=== PATIENT | male | born 1985 | race Caucasian/White ===

== ENCOUNTER 2023-07-03 02:08 | Emergency (ER) | payer OTHER, SELFPAY ==
[2023-07-03 02:16] VITALS: BP 130/70; PULSE 92; RESP 20; TEMP 36.7; O2SAT 97; BMI 27.5
--- NOTE | 2023-07-03 02:46 | PC.NURSE ---
this RN attempted to draw patient with no success. Pt reports he most frequently needs an ultrasound guided IV d/t previous drug use
--- NOTE | 2023-07-03 02:53 | MHC.EDTECH ---
Addendum entered by Darian Lakhani 07/03/23 03:09: JOSEY MIKE ATTEMPT TO DRAW PATIENT LABS ,BUT WAS UNABLE ,THIS PCT OFFER PT TO DO A FINGER STICK AND PT REFUSED ,PCT ALIYAH ATTEMPT TO DRAW PT LABS AND PT REFUSED ,MATTRESS FILLING MACHINE TENDER MARCELINO TRIED TO EDUCATE PT ABOUT THE IMPORTANCE OF THE LABS ,PT BECAME VERY RUDE TOWARD JOSEY BENSON ,PT ALSO REFUSED TO GIVE URINE SAMPLE ,PT SAID ALL HE CAME HERE FOR IS FOR A PRESCRIPTION FOR CONSTIPATION . Original Note: PT REFUSED BLOOD DRAW,HORTICULTURAL NURSERY ASSISTANT AWARE ,PT WAS VERY RUDE TO TRIAGE NURSE ,ALSO PT REFUSED URINE SAMPLE SAID HE CANT URINATE ,STATED HE WILL LEAVE .
--- NOTE | 2023-07-03 02:56 | PC.NURSE ---
pt being rude and disrespectful to staff, labs placed by this rn, pt refusing blood drawn and urine, this Rn attempted to educated pt of the importance of drawing labs. pt refused and continue to speak in loud aggressive tone. Sil and Gautam Pct present during conversation. pt refused treatment.
--- NOTE | 2023-07-03 03:02 | PC.NURSE ---
Notified Charge nurse daron Crenshaw of pt behavior.
--- NOTE | 2023-07-03 03:05 | MHC.EDTECH ---
This tech was asked to draw patient's labs due to patient being a difficult stick. Patient was agitated when this tech attempted to draw labs and stated I am constipated why do I need labs I started methadone and that what It does if i came here for head pain would I get a foot massage. This tech asked mud boss to come and speak to patient, pin drafting machine tender attempted to educate patient of the importance of having labs drawn patient continued to interrupt triage nurse and would not allow her to explain why labs were ordered and became very argumentive.Patient increased tone of voice and refused labs, staff attempted to have him stay to have workup done patient refused to stay.
--- OUTSIDE RECORDS SUMMARY | 2023-07-03 03:25 | XMS_ITS | Continuity of Care Document ---
Author Name Unknown Organization [facility] Address [address] [place] [address]- Care Team Providers Care Degree Clerk Name Role Phone Rajesh LOPEZ, Aye Primary Care Physician [phone] Encounter [facility] Date(s): 12/07/20 - 12/07/[address] [address]- Discharge Disposition: A-D/C Home Attending Physician: Pawan Torres MD Admitting Physician: Pawan Torres MD Referring Physician: Not on Staff, Referring MD Allergies, Adverse Reactions, Alerts Substance Reaction Severity Status vancomycin Active Immunizations Given and Recorded Vaccine Date Status Refusal Reason pneumococcal 23-valent vaccine 10/26/16 Given Medications Bactrim DS 800 mg-160 mg oral tablet 1 tablet, By Mouth, 2 times a day, for 10 days, # 20 tablet, 0 Refills, Acute 12/17/20 20:09:00 EDT, 12/07/20 20:09:00 EST, Tablet, [id number], Partial fill upon patient request if the prescription is for a schedule II opioid drug., 1 tablet B... Start Date: 12/07/20 Stop Date: 12/17/20 Status: Ordered buprenorphine 8 mg sublingual tablet, disintegrating 2 tablet = 16 mg, Sublingual, Daily, 0 Refills, Maintenance, 04/30/20 8:01:00 EDT, Tablet Start Date: 04/30/20 Status: Ordered cephalexin monohydrate 500 mg oral tablet 1 tablet = 500 mg, By Mouth, 3 times a day, for 10 days, # 30 tablet, 0 Refills, Acute 12/17/20 20:09:00 EDT, 12/07/20 20:09:00 EST, Tablet, [id number], Partial fill upon patient request if the prescription is for a schedule II opioid drug., 1... Start Date: 12/07/20 Stop Date: 12/17/20 Status: Ordered ondansetron 4 mg oral tablet, disintegrating 1 tablet = 4 mg, By Mouth, Every 8 hours, PRN Nausea & Vomiting, # 10 tablet, 0 Refills, Maintenance, 12/07/20 20:09:00 EST, Tablet, [id number], Partial fill upon patient request if the prescription is for a schedule II opioid drug., 191, cm,... Start Date: 12/07/20 Status: Ordered Vital Signs Most recent to oldest [Reference Range]: 1 2 3 Height 191 cm (12/07/20 8:22 PM) 191 cm (12/07/20 6:32 PM) 191 cm (12/07/20 4:08 PM) Weight 98.2 kg (12/07/20 8:22 PM) 98.2 kg (12/07/20 4:08 PM) Oxygen Saturation [94-100 %] 98 % (12/07/20 8:22 PM) 97 % (12/07/20 6:32 PM) 98 % (12/07/20 4:08 PM) Pulse Rate [55-90 bpm] 88 bpm (12/07/20 8:22 PM) 74 bpm (12/07/20 6:32 PM) 88 bpm (12/07/20 4:08 PM) Body Mass Index [18.5-24.99] 26.92 *H* (12/07/20 8:22 PM) Blood Pressure [90-138/55-84 mm Hg] 119/67mm Hg (12/07/20 8:22 PM) 116/55mm Hg (12/07/20 6:32 PM) 110/54mm Hg (12/07/20 4:08 PM) Respiratory Rate [16-30 br/min] 18 br/min (12/07/20 8:22 PM) 16 br/min (12/07/20 6:32 PM) 18 br/min (12/07/20 4:08 PM) Temperature [96.8-100.4 DegF] 99.2 DegF (12/07/20 4:08 PM) Mode of Delivery (Oxygen) Room air (12/07/20 8:22 PM) Room air (12/07/20 6:32 PM) Room air (12/07/20 4:08 PM) Blood pressure sites Arm, left (12/07/20 8:22 PM) Arm, left (12/07/20 6:32 PM) Arm, left (12/07/20 4:08 PM) Temperature Route Oral (12/07/20 4:08 PM) Dry Weight 98.2 kg (12/07/20 8:22 PM) 98.2 kg (12/07/20 4:08 PM) Social History Social History Type Response Smoking Status Never smoker entered on: 11/09/16 Sex
--- OUTSIDE RECORDS SUMMARY | 2023-07-03 03:25 | XMS_ITS | Continuity of Care Document ---
Author Name Unknown Organization [facility] ter Address [address] [place] [address]- Care Team Providers Care Spiral Weaver Name Role Phone Rajesh LOPEZ, Aye Primary Care Physician Encounter [facility] Date(s): 04/29/20 - 05/01/[address] [address] Encounter Diagnosis Hypercalcemia(Final) - 04/29/20 Hypermagnesuria(Final) - 04/29/20 Discharge Disposition: A-D/C Home Attending Physician: Chad Bolton MD Admitting Physician: Mahad Herrera DO Referring Physician: Not on Staff, Referring MD Allergies, Adverse Reactions, Alerts Substance Reaction Severity Status vancomycin Active Immunizations Given and Recorded Vaccine Date Status Refusal Reason pneumococcal 23-valent vaccine 10/26/16 Given Medications buprenorphine 8 mg sublingual tablet, disintegrating 2 tablet = 16 mg, Sublingual, Daily, 0 Refills, Maintenance, 04/30/20 8:01:00 EDT, Tablet Start Date: 04/30/20 Status: Ordered Results Orders for Microbiology Reports Name Date Blood Culture #2 (BLOOD CULTURE 2) Blood Culture 04/29/20 Microbiology Reports TEST:Blood Culture, Second Order STATUS:Unauthenticated BODY SITE: SOURCE:Blood COLLECTED DATE/TIME:04/30/20 12:29 AM Blood Culture, Second Order SPECIMEN DESCRIPTION : BLOOD L HAND SPECIAL REQUESTS : NONE CULTURE : NO GROWTH AFTER 24 HOURS REPORT STATUS : PRELIMINARY REPORT TEST:Blood Culture STATUS:Unauthenticated BODY SITE: SOURCE:Blood COLLECTED DATE/TIME:04/29/20 6:48 PM Blood Culture SPECIMEN DESCRIPTION : BLOOD R HAND SPECIAL REQUESTS : NONE CULTURE : NO GROWTH AFTER 48 HOURS REPORT STATUS : PRELIMINARY REPORT Radiology Reports * Exam Date Time Procedure Performing Provider Status 7/31/20 11:10 AM Thoracic Spine 3 Views Vandana Navas; Auth (Verified) Notes: (Thoracic Spine 3 Views) Reason For Exam: Pain RESULT: Thoracic Spine 3 Views Thoracic Spine 3 Views INDICATION: Pain; Hx of Present Illness: seizure at care home lasting 2 mins with vomiting. Pt states hefell from standing position, falling backwards into chair. Given ativan by staff. Heavy daily etoh use per facility, last drink 3 days ago; Other Objective Findings: pt is awake and alert, calm. Reports headache, denies lightheadedness dizziness. +perrla, pupil COMPARISON: None. FINDINGS: Normal alignment and well preserved disc and vertebral body morphology. No bone lesions or fractures. Normal soft tissues. IMPRESSION: No evidence of acute osseous abnormality. WSN: [id number] Ordering Physician: Colin Deluca Dictated By: Hill Boyle MD Dictated Date/Time: 04/30/20 1:06 pm Reviewed By: Hill Boyle MD Signed By: Hill Boyle MD Signed Date/Time: 04/30/20 1:06 pm Transcribed By: JERRY Transcribed Date/Time: 04/30/20 1:05 pm * Exam Date Time Procedure Performing Provider Status 04/30/20 11:10 AM Cervical Spine 3 Views or Less Norma Lei i; Auth (Verified) Notes: (Cervical Spine 3 Views or Less) Reason For Exam: Pain RESULT: Cervical Spine 3 Views or Less Cervical Spine 3 Views or Less INDICATION: Pain; Clinical Question(s): Position Fixation; Hx of Present Illness: seizure at care home lasting 2 mins with vomiting. Pt states he fell from standing position, falling backwards into chair.Given ativan by staff. Heavy daily etoh use per facility, last drink 3 days ago; COMPARISON: None. FINDINGS: Cervicothoracic junction obscured by the patient's shoulders. Normal alignment and well preserved disc and vertebral body morphology. No bone lesions or fractures. Normal C1/2 relationship. Normal prevertebral soft tissues and clear lung apices. IMPRESSION: No evidence of acute osseous abnormality. WSN: [id number] Ordering Physician: Colin Deluca Dictated By: Hill Boyle MD Dictated Date/Time: 04/30/20 1:05 pm Reviewed By: Hill Boyle MD Signed By: Hill Boyle MD Signed Date/Time: 04/30/20 1:05 pm Transcribed By: JERRY Transcribed Date/Time: 04/30/20 1:04 pm Vital Signs Most recent to oldest [Reference Range]: 1 2 3 Height 185 cm (05/01/20 12:27 PM) 185 cm (05/01/20 9:01 AM) 185 cm (05/01/20 3:46 AM) Weight 96.8 kg (04/30/20 4:10 PM) Oxygen Saturation [94-100 %] 98 % (05/01/20 12:27 PM) 99 % (05/01/20 9:01 AM) 98 % (05/01/20 3:46 AM) Pulse Rate [55-90 bpm] 81 bpm (05/01/20 12:27 PM) 63 bpm (05/01/20 9:01 AM) 98 bpm *H* (05/01/20 3:46 AM) Body Mass Index [18.5-24.99] 28.28 *H* (04/30/20 4:10 PM) Blood Pressure [90-138/55-84 mm Hg] 117/56mm Hg (05/01/20 12:27 PM) 108/57mm Hg (05/01/20 9:01 AM) 114/59mm Hg (05/01/20 3:46 AM) Respiratory Rate [16-30 br/min] 18 br/min (05/01/20 1:48 PM) 18 br/min (05/01/20 12:27 PM) 18 br/min (05/01/20 9:01 AM) Temperature [96.8-100.4 DegF] 98.6 DegF (05/01/20 12:27 PM) 98.6 DegF (05/01/20 9:01 AM) 98.4 DegF (05/01/20 3:46 AM) Mode of Delivery (Oxygen) Room air (05/01/20 12:27 PM) Room air (05/01/20 9:01 AM) Room air (05/01/20 3:46 AM) Blood pressure sites Arm, left (05/01/20 12:27 PM) Arm, left (05/01/20 9:01 AM) Arm, right (05/01/20 3:46 AM) Temperature Route Oral (05/01/20 12:27 PM) Oral (05/01/20 9:01 AM) Oral (05/01/20 3:46 AM) Dry Weight 96.8 kg (04/30/20 4:10 PM) Social History Social History Type Response Smoking Status Never smoker entered on: 11/09/16 Sex
--- OUTSIDE RECORDS SUMMARY | 2023-07-03 03:25 | XMS_ITS | Continuity of Care Document ---
Author Name [facility] Address [address] [place] [id number] Organization [facility] Address [address] [place] [address] Support Name Relationship Address Phone No Primary Care, Physician Primary Care Provider Unknown Unavailable Katrina Tian Emergency Provider [facility] Emergency Dept. [address] [place] [address] Allergies, Adverse Reactions, Alerts Allergen Type Severity Reaction Last Updated Verified Status erythromycin base Allergy Unknown February 05, 2021 Y Ac tive Medications No known medications. Problem List Active Problems Medical Problem Onset Date Status Generalized seizure Active Procedures Procedure Date Status CT head/brain wo con February 05, 2021 completed Relevant Diagnostic Tests and/or Laboratory Data Laboratory Results Test Date/Time Result Interp. Ref. Range Result Co mment White Blood Count February 05, 2021 4:15pm 8.8 10^3/uL 3.9-10.8 Red Blood Count February 05, 2021 4:15pm 5.47 10^6/uL 4.42-5.73 Hemoglobin February 05, 2021 4:15pm 14.5 g/dL 14.0-17.3 Hematocrit February 05, 2021 4:15pm 43.6 % 40.1-51.0 Mean Corpuscular Volume February 05, 2021 4:15pm 79.7 fL Low 83.0-96.0 Mean Corpuscular Hemoglobin February 05, 2021 4:15pm 26.5 pg 25.7-32.2 Mean Corpuscular Hemoglobin Concent February 05, 2021 4:15pm 33.3 % 32.3-36.5 Platelet Count February 05, 2021 4:15pm 310 10^3/uL 154-369 RDW Coefficient of Variation February 05, 2021 4:15pm 15.9 % High 11.5-14.0 Neutrophils (%) (Auto) February 05, 2021 4:15pm 88.0 % High 43.0-74.0 Lymphocytes (%) (Auto) February 05, 2021 4:15pm 9.5 % Low 17.0-44.0 Monocytes (%) (Auto) February 05, 2021 4:15pm 2.0 % Low 4.0-13.0 Eosinophils (%) (Auto) February 05, 2021 4:15pm 0 % Low 1-10 Basophils (%) (Auto) February 05, 2021 4:15pm 0.2 % 0-3.0 Immature/Total Granulocytes (auto) February 05, 2021 4:15pm 0.3 0.001-4.0 Nucleated Red Blood Cells % (auto) February 05, 2021 4:15pm 0 % Absolute Neutrophils (auto) February 05, 2021 4:15pm 7.73 10^3/UL 1.68-7.99 Absolute Lymphocytes (auto) February 05, 2021 4:15pm 0.84 10^3/UL 0.66-4.75 Absolute Monocytes (auto) February 05, 2021 4:15pm 0.18 10^3/UL 0.16-1.40 Absolute Eosinophils (auto) February 05, 2021 4:15pm 0 10^3/UL 0.0-0.6 Absolute Basophils (auto) February 05, 2021 4:15pm 0.02 10^3/UL 0.00-0.32 Nucleated RBC Absolute Count (auto) February 05, 2021 4:15pm 0 K/uL Sodium Level February 05, 2021 4:15pm 134 mmol/L Low 136-144 Potassium Level February 05, 2021 4:15pm 3.5 mmol/L 3.4-5.1 Chloride Level February 05, 2021 4:15pm 102 mmol/L 101-111 Carbon Dioxide Level February 05, 2021 4:15pm 21 mmol/L Low 22-32 Anion Gap February 05, 2021 4:15pm 11 mmol/L 5.0-15.0 Blood Urea Nitrogen February 05, 2021 4:15pm 13 mg/dL 8-20 Creatinine February 05, 2021 4:15pm 0.96 mg/dL 0.64-1.27 Glomerular Filtration Rate Calc February 05, 2021 4:15pm > 60.0 60.0- Please note that the Pharmacy may use a different equation when calculating drug dosing schedules (such as the Cockcroft - Gault Equation). Multiply x 1.212 if patient is of descent. Units are mL/min/1.73 m sq. Calculated using the IDMS-traceable MDRD study equation. Glucose Level February 05, 2021 4:15pm 117 mg/dL 75-140 Calcium Level February 05, 2021 4:15pm 9.2 mg/dL 8.6-10.5 Phosphorus Level February 05, 2021 4:15pm 1.3 mg/dL Low 2.4-4.7 Total Bilirubin February 05, 2021 4:15pm 0.61 mg/dL 0.3-1.2 Aspartate Amino Transf (AST/SGOT) February 05, 2021 4:15pm 21 U/L 15-41 Alanine Aminotransferase (ALT/SGPT) February 05, 2021 4:15pm 26 U/L 17-63 Alkaline Phosphatase February 05, 2021 4:15pm 59 U/L 38-126 Total Protein February 05, 2021 4:15pm 7.7 g/dL 6.1-7.9 Albumin February 05, 2021 4:15pm 3.7 g/dL 3.5-4.8 Magnesium Level February 05, 2021 4:15pm 1.8 mg/dL 1.8-2.5 Salicylates Level February 05, 2021 4:15pm < 4.0 mg/dL Low 4.0-20 Toxic Range: Greater than 30 mg/dl Patients treated with Sulfasalazine may generate a FALSE HIGH result for Salicylate. Patients treated with Sulfapyridine may generate a FALSE LOW result for Salicylate Acetaminophen Level February 05, 2021 4:15pm 21.6 ug/mL 10-30 Acetaminophen toxic range: Greater than 150 ug/mL at 4 hours after ingestion. Greater than 75 ug/mL at 8 hours after ingestion. Greater than 40 ug/mL at 12 hours after ingestion. Ethyl Alcohol Level February 05, 2021 4:15pm 5 mg/dL The Laboratory will now report Ethanol units in mg/dL. To convert results to %, please divide the result by 1000. This is to better comply with the laboratory regulatory agencies. Advance Directives Advance Directive Response Recorded Date/ Time Date Patient Queried 02/05/21 February 05, 2021 2:30pm Does pt. have a legal guardian? No February 05, 2021 2:30pm Does the patient have a Healthcare Proxy? No February 05, 2021 2:30pm Healthcare Proxy Status Not Interested February 05 2:30pm Chief Complaint and Reason for Visit Encounter Admit Date Chief Complaint Reason for V isit Departed Emergency February 05, 2021 2:17pm seizure Hospital Discharge Instructions Additional Discharge Instructions You ar e seen in the emergency room after having a seizure at [place]. Your work-up included blood work and a CT scan. This was just noted for a low phosphorus level for which we gave you medication. Initially did not want to go back to [place] but then later were agreeable. It would not be recommended that you check out from [place] as you need to be in a monitored situation while detoxing. Read the paperwork for more information reasons to return to the emergency room Instruction/Education Provided Alcohol W ithdrawal (ED) Polysubstance Abuse (ED) Encounters Encounter Facility Location Admit/Visit Date Discharge/Departure Date Attending Provider Departed Emergency [facility] ED Observation February 05, 2021 2:17pm February 06, 2021 10:49am Functional Status Query Response Date Recorded Comment Patient Orientation Oriented x3 February 05, 2021 2:39pm Immunizations No known immunizations. Plan of Care Instructions Alcohol Withdrawal (ED) Polysubstance Abuse (ED) Social History Query Response Date Recorded Comment Does the patient use drugs? Yes February 05, 2021 2 :26pm Is pt a current\former smoke r or user of tobacco products? Yes, current February 06, 2021 8:47am Query Response Start Date Stop Date Is pt a current\former smoke r or user of tobacco products? Yes, current Vital Signs Vital Reading Result Reference Range Collection Date/Time Weight n/a Temperature 98.5 F 97.5 F-99.3 F February 05, 2021 2: 38pm Pulse 64 BPM 60-90 February 06, 2021 9:3 1am Respiration 18 RPM 12-20 February 06, 2021 9:3 1am Pulse Oximetry 98 % 95-100 February 06, 2021 9 :31am Blood Pressure Systolic 114 100-160 February 06, 2021 9:31am Blood Pressure Diastolic 74 60-90 February 06, 2021 9:31am
== END 2023-07-03 03:49 | disposition left against medical advice (07) ==
PROVIDERS: Emergency Provider Emergency Medicine
DX: K59.00 Constipation, unspecified (principal); F11.20 Opioid dependence, uncomplicated
CPT/HCPCS: 99281

== ENCOUNTER 2024-02-22 06:30 | Emergency (ER) | payer OTHER, SELFPAY ==
[2024-02-22 06:36] VITALS: BP 146/92; PULSE 85; PULSE 87; RESP 19; TEMP 36.8; O2SAT 100; O2SAT 96; BMI 26.1
--- OUTSIDE RECORDS SUMMARY | 2024-02-22 07:17 | XMS_ITS | Continuity of Care Document ---
Author Organization [facility] Address [address] [place] [address]- Care Team Providers Care Business Strategist Name Role Phone Aye Mena MD Primary Care Physician [phone] Encounter [facility] Date(s): 09/21/23 - 10/27/23 Wound Care [address] [place] [id number] Attending Physician: Javier Sandhu MD Admitting Physician: Javier Sandhu MD Allergies, Adverse Reactions, Alerts Substance Reaction Severity Status vancomycin Active Immunizations Given and Recorded Vaccine Date Status Refusal Reason pneumococcal 23-valent vaccine 10/26/16 Given Medications buprenorphine 8 mg sublingual tablet, disintegrating 2 tablet = 16 mg, Sublingual, Daily, 0 Refills, Maintenance, 04/30/20 8:01:00 EDT, Tablet Start Date: 04/30/20 Status: Ordered ondansetron 4 mg oral tablet, disintegrating 1 tablet = 4 mg, By Mouth, Every 8 hours, PRN Nausea & Vomiting, # 10 tablet, 0 Refills, Maintenance, 12/07/20 20:09:00 EST, Tablet, [id number], Partial fill upon patient request if the prescription is for a schedule II opioid drug., 191, cm,... Start Date: 12/07/20 Status: Ordered Social History Social History Type Response Smoking Status Never smoker entered on: 11/09/16 Sex Patient Care team information Care Team Personnel Name: Linda Lima Position: [facility] Outreach Member Role: Lifetime Consulting Physician Name: Digna Jay RN Position: [facility] SN RN Member Role: Primary Care Nurse Name: Ricky Hall RN Position: [facility] RN Member Role: Primary Care Nurse Name: Sarita Ayala RN Position: [facility] Onco RN Member Role: Primary Care Nurse Name: Aye Mena MD Position: [facility] Outreach Member Role: PCP Address: Address: [address] [place] [address]- Name: Tara Arriaza RN Position: [facility] RN Member Role: Primary Care Nurse Name: Lillian Emery RN Position: [facility] Prudencio RN Member Role: Primary Care Nurse Name: German Madrigal MD Position: [facility] Renal MD Member Role: Lifetime Consulting Physician Address: Address: [address] [place] [address] [facility] [place] [address]- Care Team Related Persons Name: KJ DEL RIO Address: home [address] [place] [address] Name: SHOAIB DEL RIO Address: [address] [place] [address]
--- OUTSIDE RECORDS SUMMARY | 2024-02-22 07:17 | XMS_ITS | Continuity of Care Document ---
Author Organization [facility] Address [address] [place] [address]- Care Team Providers Care Take Off Man Name Role Phone Rajesh LOPEZ, Aye Primary Care Physician [place] [facility] [place]23 - 11/03/23 W[facility] Care [address] [place] [address] Attending Physician: Javier Sandhu MD Admitting Physician: [...] Refills, Maintenance, 12/07/20 20:09:00 EST, Tablet, [id number], Partial fill upon patient request if the prescription is for a schedule II opioid drug., 191, cm,... Start Date: 12/07/20 Status: Ordered Social History Social History Type Response Smoking Status Never smoker entered on: 11/09/16 Sex Patient Care team information Care Team Personnel Name: Linda Lima Position: [facility] Outreach Member Role: Lifetime Consulting Physician Name: Digna Jay RN Position: [facility] SN RN Member Role: Primary Care Nurse Name: Ricky Hall RN Position: S RN Member Role: Primary Care Nurse Name: Sarita Ayala RN Position: [facility] Onco RN Member Role: Primary Care Nurse Name: Aye Mena MD Position: [facility] Outreach Member Role: PCP Address: Address: [address] [place] [address]- Name: Tara Arriaza RN Position: [facility] RN Member Role: Primary Care Nurse Name: Lillian Emery RN Position: [facility] Rad RN Member Role: Primary Care Nurse Name: German Madrigal MD Position: [facility] Renal MD Member Role: Lifetime Consulting Physician Address: Address: [address] [place] [address] [facility] [place] [address]- Care Team Related Persons Name: KJ DEL RIO Address: [address] [place] [address] Name: SHOAIB DEL RIO Address: [address] [place] [address]
--- OUTSIDE RECORDS SUMMARY | 2024-02-22 07:17 | XMS_ITS | Continuity of Care Document ---
Author Organization [facility] Address [address] [place] [address]- Care Team Providers Care Bookkeepers Supervisor Name Role Phone Not on Staff, PCP Primary Care Physician Unavail able [place] [facility] [place] Date(s): 12/12/23 - 01/16/24 Wound Care [address] [place] [id number] Attending Physician: Javier Sandhu MD Admitting Physician: [...] Care team information Care Team Personnel Name: Lidna Lima Position: [facility] Outreach Member Role: Lifetime Consulting Physician Name: Digna Jay RN Position: [facility] ANDREW Office Staff Member Role: Primary Care Nurse Name: Ricky Hall RN Position: [facility] RN Member Role: Primary Care Nurse Name: Sarita Ayala RN Position: [facility] Onco RN Member Role: Primary Care Nurse Name: Tara Arriaza RN Position: [facility] RN Member Role: Primary Care Nurse Name: Lillian Emery RN Position: [facility] Rad RN Member Role: Primary Care Nurse Name: Not on Staff, PCP Position: [facility] Physician (General Medicine) Member Role: PCP Name: German Madrigal MD Position: [facility] Renal MD Member Role: Lifetime Consulting Physician Address: Address: [address] [place] [address] [facility] [place] [place] [address]- Care Team Related Persons Name: KJ DEL RIO Address: [address] [place] [address] Name: SHOAIB DEL RIO Address: [address] [place] [address]
--- OUTSIDE RECORDS SUMMARY | 2024-02-22 07:17 | XMS_ITS | Continuity of Care Document ---
Author Organization [facility] ter Address [address] [place] [address]- Care Team Providers Care Knife Setter Assembler Name Role Phone Rajesh LOPEZ, Aye Primary Care Physician Encounter [facility] Date(s): 06/21/23 - 07/25/[address] [id number] Attending Physician: Eze Gould MD Admitting Physician: Eze Gould MD Referring Physician: Eze Gould MD Allergies, Adverse Reactions, Alerts Substance Reaction [...] Refills, Maintenance, 12/07/20 20:09:00 EST, Tablet, [id number], Partial fill upon patient request if the prescription is for a schedule II opioid drug., 191, cm,... Start Date: 12/07/20 Status: Ordered Social History Social History Type Response Smoking Status Never smoker entered on: 11/09/16 Sex Patient Care team information Care Team Personnel Name: Linda Lima Position: [facility] Outreach Member Role: Lifetime Consulting Physician Name: Digna Jay RN Position: [facility] SN RN Member Role: Primary Care Nurse Name: Ricky Hall RN Position: [facility] RN Member Role: Primary Care Nurse Name: Ken DOWLING, Sarita Atwood Position: [facility] Onco RN Member Role: Primary Care Nurse Name: Aye Mena MD Position: [facility] Outreach Member Role: PCP Address: Address: [address] [place] [address]- Name: Tara Arriaza RN Position: [facility] ED RN W/OE and Tasks Member Role: Primary Care Nurse Name: Lillian Emery RN Position: [facility] Rad RN Member Role: Primary Care Nurse Name: German Madrigal MD Position: [facility] Renal MD Member Role: Lifetime Consulting Physician Address: Address: [address] [place] [address] [facility] [place] [address]- Care Team Related Persons Name: KJ DEL RIO Address: home [address] [place] [address] Name: SHOAIB DEL RIO Address: [address] [place] [address]
--- OUTSIDE RECORDS SUMMARY | 2024-02-22 07:17 | XMS_ITS | Continuity of Care Document ---
Author Organization [facility] Address [address] [place] [address]- Care Team Providers Care Parking Garage Manager Name Role Phone Rajesh LOPEZ, Aye Primary Care Physician [place] [facility] [place]08[place]24 - 02/07/24 [facility] [address] [place] [address]- Allergies, Adverse Reactions, Alerts Substance Reaction Severity [...] Care Team Personnel Name: Linda Lima Position: [facility] Outreach Member Role: Lifetime Consulting Physician Name: Digna Jay RN Position: [facility] Office Staff Member Role: Primary Care Nurse Name: Ricky Hall RN Position: [facility] RN Member Role: Primary Care Nurse Name: Sarita Ayala RN Position: [facility] Onco RN Member Role: Primary Care Nurse Name: Aye Mena MD Position: S Outreach Member Role: PCP Address: Address: [address] [place] [address]- Name: Tara Arriaza RN Position: [facility] RN Member Role: Primary Care Nurse Name: Lillian Emery RN Position: [facility] Rad RN Member Role: Primary Care Nurse Name: German Madrigal MD Position: [facility] Renal MD Member Role: Lifetime Consulting Physician Address: Address: [address] [place] [address] [facility] [place] [address]- [place] Care Team Related Persons Name: QUANGKJ Address: home [address] [place] [address] Name: SHOAIB DEL RIO Address: [address] [place] [address]
--- OUTSIDE RECORDS SUMMARY | 2024-02-22 07:17 | XMS_ITS | Continuity of Care Document ---
Author Organization [facility] Address [address] [place] [address]- Care Team Providers Care Dietetics Director Name Role Phone Not on Staff, PCP Primary Care Physician Unavail able Encounter [facility] Date(s): 11/02/23 - 12/08/23 [facility] [address] [place] [id number] Attending Physician: Javier Sandhu MD Admitting [...] Care Team Personnel Name: Linda Lima Position: [facility] Outreach Member Role: Lifetime Consulting Physician Name: Ricky Hall RN Position: [facility] RN Member Role: Primary Care Nurse Name: Sarita Ayala RN Position: [facility] Onco RN Member Role: Primary Care Nurse Name: Tara Arriaza RN Position: S RN Member Role: Primary Care Nurse Name: Lillian Emery RN Position: [facility] Rad RN Member Role: Primary Care Nurse Name: Not on Staff, PCP Position: [facility] Physician (General Medicine) Member Role: PCP Name: German Madrigal MD Position: [facility] Renal MD Member Role: Lifetime Consulting Physician Address: Address: [address] [place] [address] [facility] [address] Care Team Related Persons Name: QUANGKJ Address: home [address] [place] [address] Name: SHOAIB DEL RIO Address: [address] [place] [address]
--- OUTSIDE RECORDS SUMMARY | 2024-02-22 07:17 | XMS_ITS | Continuity of Care Document ---
Author Organization [facility] Address [address] [place] [address]- Care Team Providers Care Microsoft Bi Architect Name Role Phone Not on Staff, PCP Primary Care Physician Unavail able Encounter [facility] [place] Date(s): 09/07/23 - 10/13/23 [facility] [address] [place] [id number] Attending Physician: Javier Sandhu MD Admitting [...] Care Team Personnel Name: Linda Lima Position: [facility] Outreach Member Role: Lifetime Consulting Physician Name: Digna Jay RN Position: [facility] SN RN Member Role: Primary Care Nurse Name: Ricky Hall RN Position: [facility] RN Member Role: Primary Care Nurse Name: Sarita Ayala RN Position: [facility] Onco RN Member Role: Primary Care Nurse Name: Tara Arriaza RN Position: [facility] ED RN W/OE and Tasks Member Role: Primary Care Nurse Name: Lillian Emery RN Position: [facility] Rad RN Member Role: Primary Care Nurse Name: Not on Staff, PCP Position: [facility] Physician (General Medicine) Member Role: PCP Name: German Madrigal MD Position: [facility] Renal MD Member Role: Lifetime Consulting Physician Address: Address: [address] [place] [address] [facility] [place] [address]- Care Team Related Persons Name: KJ DEL RIO Address: home [address] [place] [address] Name: SHOAIB DEL RIO Address: [address] [place] [address]
--- OUTSIDE RECORDS SUMMARY | 2024-02-22 07:17 | XMS_ITS | Continuity of Care Document ---
Author Organization [facility] Address [address] [place] [address]- Care Team Providers Care Freezer Operator Name Role Phone Not on Staff, PCP Primary Care Physician Unavail able [place] [facility] [place] 10[place]23 - 12/01/23 [facility] [address] [place] [id number] Attending Physician: Javier Sandhu MD Admitting Physician: Javier Sandhu MD Allergies, Adverse Reactions, Alerts Substance Reaction Severity Status vancomycin Active Immunizations Given and Recorded Vaccine Date Status Refusal Reason pneumococcal 23-valent vaccine 10/26/16 Given Medications buprenorphine 8 mg sublingual tablet, disintegrating 2 tablet = 16 mg, Sublingual, Daily, 0 Refills, Maintenance, 04/30/20 8:01:00 EDT, Tablet Start Date: 04/30/20 Status: Ordered doxycycline hyclate 100 mg oral tablet 1 tablet = 100 mg, By Mouth, Every 12 hours, for 10 days, # 20 tablet, 0 Refills, Acute 12/02/23 15:19:00 EST, 11/22/23 15:19:00 EST, Tablet, [id number], Partial fill upon patient request if the prescription is for a schedule II opioid drug. Start Date: 11/22/23 Stop Date: 12/02/23 Status: Ordered ondansetron 4 mg oral tablet, [...] Care team information Care Team Personnel Name: Janie Linda Position: [facility] Outreach Member Role: Lifetime Consulting Physician Name: Digna Jay RN Position: [facility] SN RN Member Role: Primary Care Nurse Name: Ricky Hall RN Position: [facility] RN Member Role: Primary Care Nurse Name: Jamie DOWLING, Sarita Atwood Position: [facility] Onco RN Member Role: Primary Care Nurse Name: Tara Arriaza RN Position: [facility] RN Member Role: Primary Care Nurse Name: Lillian Emery RN Position: [facility] Rad RN Member Role: Primary Care Nurse Name: Not on Staff, PCP Position: [facility] Physician (General Medicine) Member Role: PCP Name: German Madrigal MD Position: [facility] Renal MD Member Role: Lifetime Consulting Physician Address: Address: [address] [place] [address] [facility] [address] Care Team Related Persons Name: KJ DEL RIO Address: [address] [place] [address] Name: SHOAIB DEL RIO Address: [address] [place] [address]
--- OUTSIDE RECORDS SUMMARY | 2024-02-22 07:17 | XMS_ITS | Continuity of Care Document ---
Author Organization [facility] ter Address [address] [place] [address]- Care Team Providers Care Dielectric Press Operator Name Role Phone Rajesh LOPEZ, Aye Primary Care Physician Encounter [facility] [place] Date(s): 06/20/23 - 07/21/[address] [address] Attending Physician: Eze Gould MD Admitting Physician: [...] Care Team Personnel Name: Linda Lima Position: [facility] Outreach Member Role: Lifetime Consulting Physician Name: Digna Jay RN Position: [facility] SN RN Member Role: Primary Care Nurse Name: Ricky Hall RN Position: [facility] RN Member Role: Primary Care Nurse Name: Ken DOWLING, Sarita Atwood Position: [facility] Onco RN Member Role: Primary Care Nurse Name: Aye Mena MD Position: [facility] Outreach Member Role: PCP Address: Address: [address] [place] [address]- [place] Name: Tara Arriaza RN Position: [facility] RN Member Role: Primary Care Nurse Name: Lillian Emery RN Position: [facility] Prudencio RN Member Role: Primary Care Nurse Name: German Madrigal MD Position: [facility] Renal MD Member Role: Lifetime Consulting Physician Address: Address: [address] [facility] [place] [address]- Care Team Related Persons Name: KJ DEL RIO Address: [address] [place] [address] Name: SHOAIB DEL RIO Address: [address] [place] [address]
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
--- NOTE | 2024-02-22 07:52 | PC.NURSE ---
PT NOT IN ROOM. C-COLLAR ON BED.
== END 2024-02-22 07:52 | disposition left against medical advice (07) ==
PROVIDERS: Emergency Provider Emergency Medicine Emergency Medical Services; PCP Physician Assistant
DX: Z04.1 Encounter for examination and observation following transport accident (principal); Z53.21 Procedure and treatment not carried out due to patient leaving prior to being seen by health care provider
CPT/HCPCS: 99281

== ENCOUNTER 2024-04-12 01:09 | Inpatient (IN) | payer OTHER, SELFPAY ==
[2024-04-12] VITALS (11 sets, daily range): BP systolic 110–139; BP diastolic 60–85; PULSE 51–93; RESP 16–20; TEMP 36.3–37; O2SAT 96–99; BMI 25.6
--- NOTE | ~2024-04-12 | CT_ITS ---
EXAMINATION: CT ABDOMEN AND PELVIS WITHOUT CONTRAST CLINICAL INFORMATION: Abdominal pain abnormal labs, high bilirubin, BELINDA COMPARISON: CT abdomen and pelvis report 05/04/2016 TECHNIQUE: Multidetector volumetric imaging was performed from the superior aspect of the liver through the pubic symphysis. Sagittal and coronal reformatted images were obtained on the technologist's workstation. This CT examination was performed using dose optimization techniques as appropriate, variously including the following: *Automated exposure control *Adjustment of mA and/or kV according to patient size (this includes techniques or standardized protocols for targeted exams where dose is matched to indication/reason for exam; i.e. extremities or head) *Use of iterative reconstruction technique DLP: 445 mGy-cm FINDINGS: LUNG BASES: The visualized lung bases are unremarkable. LIVER, GALLBLADDER, AND BILIARY TREE: The liver is normal in size, shape, and attenuation. No focal hepatic lesion or biliary ductal dilatation is present. The gallbladder is unremarkable with no evidence of radiopaque gallstones, gallbladder wall thickening, or obvious pericholecystic inflammatory changes. PANCREAS: Unremarkable. SPLEEN: Unremarkable. ADRENAL GLANDS: Unremarkable. KIDNEYS AND URETERS: The kidneys are normal in size, shape, and attenuation. No hydronephrosis, hydroureter, or calculi seen. No perinephric stranding. BLADDER: Unremarkable. GASTROINTESTINAL TRACT: No bowel obstruction. Normal appendix. Large stool burden in the colon. No inflammatory changes in the bowel. ABDOMINAL WALL: No significant hernia is appreciated. LYMPH NODES: Normal. VASCULAR: Unremarkable. PELVIC VISCERA: Unremarkable. OSSEOUS STRUCTURES: Unremarkable. CT/CT abdomen pelvis wo IV con IMPRESSION: 1. No acute abnormality in the abdomen or pelvis. 2. Large stool burden in the colon. Fleischner guidelines were followed.
--- NOTE | 2024-04-12 01:36 | PC.NURSE ---
pt refused to change into a gown
--- OUTSIDE RECORDS SUMMARY | 2024-04-12 01:40 | XMS_ITS | Continuity of Care Document ---
Author Organization [facility] Address [address] [place] [address]- Care Team Providers Care Manager Statistical Name Role Phone Not on Staff, PCP Primary Care Physician Unavail able [place] [facility] [place]s): 02/13/24 - 03/19/24 W[facility] Care [address] [place] [id number] Attending Physician: Javier Sandhu MD Admitting Physician: Javier Sandhu MD Referring Physician: Not on Staff, Referring [...] days, # 20 tablet, 0 Refills, Acute 03/20/24 15:55:00 EDT, 03/10/24 15:55:00 EDT, Tablet, [id number], Partial fill upon patient request if the prescription is for a schedule II opioid drug. Start Date: 03/10/24 Stop Date: 03/20/24 Status: Ordered ondansetron 4 mg oral tablet, [...] Care Team Personnel Name: Linda Lima Position: [facility] Outreach Member Role: Lifetime Consulting Physician Name: Digna Jay RN Position: [facility] Office Staff Member Role: Primary Care Nurse Name: Ricky Hall RN Position: [facility] RN Member Role: Primary Care Nurse Name: Jamie RN, Sarita Atwood Position: [facility] Onco RN Member Role: Primary Care Nurse Name: Tara Arriaza RN Position: [facility] RN Member Role: Primary Care Nurse Name: Lillian Emery RN Position: [facility] Rad RN Member Role: Primary Care Nurse Name: Not on Staff, PCP Position: [facility] Physician (General Medicine) Member Role: PCP Name: German Madrigal MD Position: [facility] Renal MD Member Role: Lifetime Consulting Physician Address: Address: [address] [place] [address] [facility] [address] Care Team Related Persons Name: KJ DEL RIO Address: [address] [place] [address] Name: SHOAIB DEL RIO Address: [address] [place] [address]
--- OUTSIDE RECORDS SUMMARY | 2024-04-12 01:41 | XMS_ITS | Patient Health Record ---
Author Organization [facility] Address [address] [place], [place] [id number] Support Name Relationship Address Phone Elie Jenkins Guarantor Unknown [phone] REASON FOR REFERRAL No Information SOCIAL HISTORY Sex Assigned At : Social History Observation Description Sex Assigned At Unknown PLAN OF TREATMENT Pending Test Test Name Order Date D: Treatment Plan Completed 01/04/2010 Insurance Providers Payer Name Payer Address Payer Phone Subscriber Number Group Number Insured Name Patient Relationship to Insured Coverage Start Date Coverage End Date [facility] [address] [place] [phone] [id number] Elie Jenkins Self - patient is the insured MEDICAL (GENERAL) HISTORY Medical History History ICD Code Healthy, non-contributory
[2024-04-12 06:13] LABS: COVID-19 Test Negative (Negative); IDNOW Serial# 08D9AD1C; IDNOW Serial# 152EDE1D; Influenza A Negative (Negative); Influenza B2 Negative (Negative)
[2024-04-12 06:21] LABS: Basophils Percent Auto 0.2 % (0-2); Eosinophils Absolute Auto 0.1 X10*3/uL (0.0-0.4); Eosinophils Percent Auto 0.6 % (0-4); Hematocrit 44.2 % (42.0-52.0); Hemoglobin 15.1 g/dl (14.0-18.0); Imm Gran Abs Auto 0.03 X10*3/uL (0.00-0.03); Imm Gran Pct Auto 0.3 % (0.0-0.4); Lymphocytes Absolute Auto 0.8 X10*3/uL (1.2-4.9); Lymphocytes Percent Auto 7.1 % (20-40); MANUAL DIFF FLAG SCAN; Mean Corpuscular HGB Conc 34.2 g/dl (31.0-36.0); Mean Corpuscular Hemoglobin 28.2 pg (27.0-33.0); Mean Corpuscular Volume 82.5 fL (80.0-98.0); Mean Platelet Volume 10.1 fL (9.4-12.4); Monocytes Absolute Auto 0.2 X10*3/uL (0.1-1.2); Monocytes Percent Auto 1.8 % (2-11); Neutrophils Absolute Auto 10.6 x10*3/uL (2.0-8.3); PLT CLUMP 1; Platelet Count 194 X10*3/uL (160-400); Red Blood Count 5.36 X10*6/uL (4.60-5.80); Red Cell Distribution Width 14.9 % (11.0-16.0); SCAN SMEAR FLAG 1; White Blood Count 11.8 X10*3/uL (4.8-10.8)
[2024-04-12 06:40] LABS: Alanine Aminotransferase 101 U/L (0-40); Albumin Level 4.1 g/dL (3.5-5.0); Alkaline Phosphatase 99 U/L (39-117); Anion Gap 16 (12-20); Aspartate Amino Transferase 74 U/L (5-37); Bilirubin Total 2.1 mg/dL (0.0-1.0); Blood Urea Nitrogen 20 mg/dL (9-16); Calcium 9.8 mg/dL (8.4-10.2); Carbon Dioxide 19 mmol/L (22-29); Chloride 105 mmol/L (96-108); Creatinine Clr Calc Pharmacy 78.2; Estimated Glomerular Filt Rate 51; Glucose Random 125 mg/dL (60-115); Magnesium 2.3 mg/dL (1.6-2.6); Potassium 4.3 mmol/L (3.3-5.1); Sodium 136 mmol/L (135-145); Total Protein 8.3 g/dL (6.5-8.0)
[2024-04-12 06:43] LABS: SLIDE REVIEW VERIFIED
--- NOTE | 2024-04-12 07:08 | PC.NURSE ---
Alert and oriented, states has not vomited since EMS came to his house to pick him up. States d/t IVDU always needs ultrasound guided IV placed. Provider aware
[2024-04-12 07:22] LABS: Lipase 34 U/L (8-78)
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
--- NOTE | 2024-04-12 08:07 | MHC.EDTECH ---
phlebotomy was called to collect labs
[2024-04-12 08:27] LABS: MANUAL DIFF FLAG NO
[2024-04-12 08:32] LABS: Basophils Percent Auto 0.4 % (0-2); Eosinophils Absolute Auto 0.2 X10*3/uL (0.0-0.4); Eosinophils Percent Auto 1.5 % (0-4); Hematocrit 44.6 % (42.0-52.0); Hemoglobin 14.6 g/dl (14.0-18.0); Imm Gran Abs Auto 0.03 X10*3/uL (0.00-0.03); Imm Gran Pct Auto 0.3 % (0.0-0.4); Lymphocytes Absolute Auto 1.5 X10*3/uL (1.2-4.9); Lymphocytes Percent Auto 13.3 % (20-40); Mean Corpuscular HGB Conc 32.7 g/dl (31.0-36.0); Mean Corpuscular Hemoglobin 27.5 pg (27.0-33.0); Mean Corpuscular Volume 84.2 fL (80.0-98.0); Mean Platelet Volume 9.8 fL (9.4-12.4); Monocytes Absolute Auto 0.4 X10*3/uL (0.1-1.2); Monocytes Percent Auto 3.8 % (2-11); Neutrophils Absolute Auto 9.2 x10*3/uL (2.0-8.3); Neutrophils Percent Auto 80.7 % (45-73); Platelet Count 213 X10*3/uL (160-400); Red Cell Distribution Width 15.2 % (11.0-16.0); White Blood Count 11.4 X10*3/uL (4.8-10.8)
--- NOTE | 2024-04-12 09:02 | HE.PHANOTE ---
METHADONE Patient received methadone from [facility] [phone], patient is dosed with 270 mg, last dose on 04/11/24 @2208.
[2024-04-12] MEDS: ALPRAZolam 0.5 MG TABLET 1 MG PO (09:07)
--- NOTE | 2024-04-12 09:30 | MHC.RECOVRN ---
It was requested by KJ Brooks in ED to assist with methadone verification for pt. I called pt's home clinic of [facility] at 9:20AM and spoke joan Weinberg LPN at clinic and she verified that pt's dose is currently 270mg and that he last received it on 04/11/24 at 5:47AM. Form completed and brought to ED.
--- NOTE | 2024-04-12 10:02 | PC.NURSE ---
EJ attempted by provider without success. Central line to be placed in groin, patient aware and in agreement
[2024-04-12] MEDS: 0.9 % Sodium Chloride 1,000 ML 999 ML IV (11:08)
[2024-04-12] MEDS: Clindamycin Phosphate/D5W 600 MG/50 ML PIGGYBACK 100 MG IV ×2 (11:08→18:25)
[2024-04-12] MEDS: methADONE HCl 20 MG/2 ML ORAL.CONC 270 MG PO (11:08)
--- NOTE | 2024-04-12 11:19 | PC.NURSE ---
Central lines placed by provider, fluids/ abt infusing per order
--- NOTE | 2024-04-12 11:28 | P.HPHOSP_ITS ---
History of Present Illness Date of Service: 04/12/24 Attending physician on admission: Itz Silverio Chief Complaint: N/V, genearlized weakness Pt is a 38-year-old male with a PMH significant for opiate use disorder with IVDU (clean x2 months, on methadone 270mg), untreated hepatitis-C, and chronic xyaline wounds treated by [facility] wound care center who presents to the ED with?intractable nausea, vomiting, and abdominal pain since this morning. Patient has a history of infected xylazine wounds on upper and lower extremities that have been treated at [facility]. Was originally prescribed a 10- day course of doxycycline that he completed 3 days ago. However, wound cultures apparently grew MRSA resistant to doxy and pt was prescribed clindamycin but she began 4 days ago. Soon after began experiencing nausea with no vomiting. Stopped the clindaymycin two days ago but nausea persisted. Last night pt was woken from sleep with severe nausea and central abdominal pain, then had intractable projectile vomiting x2 hours, which prompted visit to the ED. Also reports subjective fever and chills, and has had reduced p.o. intake especially solids for the past 14 days while on antibiotics. Denies diarrhea. No chest pain/pressure, palpitations. Denies shortness of breath or difficulty breathing. Reports chronic constipation since being on methadone that is alleviated by Dulcolax chews. Reports having large bowel movement earlier today. In the ED pt's vitals were stable, WNL. Labs were significant for mild leukocytosis of 11.8, BUN of 20, creatinine 1.53, bilirubin 2.1, AST 74, ALT 101, and CPK 1330. Stable H& H. No significant electrolyte abnormalities. Lactic acid WNL at 1.0. CT?of abdomen and pelvis with no acute abnormality, they showed large stool burden in the colon. In the ED pt proved to be a difficult stick and a femoral line was placed. Pt was treated with alprazolam, IVF, methadone, and clindamycin. Pt will be admitted to the hospital for treatment and further evaluation of BELINDA, rhabdomyolysis, and xylazine wounds that have failed outpatient therapy. Review of Systems 2 Review of Systems: Nausea, vomiting, abdominal pain Subjective fever and chills Anorexia, reduced p.o. intake Generalized weakness No shortness a breath Denies chest pain/, palpitations PMFSH Social History Smoked in Last 30 Days: No Use of substances other than those prescribed or required for medical reasons: Yes Substance Use Type: Former Substance User Advance Directives: No Advance Directives Information Provided: Yes Do you have a plan to hurt others: No Plan Meds Allergies Allergy/AdvReac Type Severity Reaction Status Date / Time vancomycin [VANCOMYCIN] Allergy Unknown SWEATING, Verified 04/12/24 01:28 FEVER, NAUSEA Home Medications ?Medication ?Instructions ?Recorded ?Confirmed ?Last Taken ?Type methadone 10 mg/mL oral 270 mg PO DAILY 04/12/24 04/12/24 04/11/24 History concentrate (Methadone Intensol) Physical Exam 2 Vital Signs and Narrative: Vital Signs: Last Vital Signs Temp 97.9 F 04/12/24 06:37 Pulse 68 04/12/24 08:27 Resp 17 04/12/24 08:27 BP 128/71 04/12/24 08:27 Pulse Ox 98 04/12/24 08:27 O2 Del Method Room Air 04/12/24 08:27 BMI result Body Mass Index 25.6 General: AOx3, no acute distress Resp: CTA bilaterally CVS: S1, S2, RRR GI: +BS, NT, no distention Skin: Warm, dry Neuro: Cranial nerves II-XII grossly intact bilaterally. Motor grossly intact bilaterally Extremities: No edema. Healing xylazine wounds on upper and lower extremities, as pictured below. Psych: Appropriate affect Results Labs 04/12/24 08:20 04/12/24 06:06 Labs: Laboratory Results - last 24 hr 04/12/24 04/12/24 04/12/24 05:48 06:06 08:20 MCV 82.5 84.2 MCH 28.2 27.5 MCHC 34.2 32.7 RDW 14.9 15.2 Plt Count 194 213 MPV 10.1 9.8 Immature Gran % (Auto) 0.3 0.3 Neut % (Auto) 90.0 H 80.7 H Lymph % (Auto) 7.1 L 13.3 L [place] % (Auto) 1.8 L 3.8 Eos % (Auto) 0.6 1.5 Baso % (Auto) 0.2 0.4 Lymph # (Auto) 0.8 L 1.5 [place] # (Auto) 0.2 0.4 Eos # (Auto) 0.1 0.2 Baso # (Auto) 0.0 0.0 Abs Immat Gran (auto) 0.03 0.03 Absolute Neuts (auto) 10.6 H 9.2 H Absolute Nucleated RBC 0.000 0.000 Nucleated RBC % (auto) 0.0 0.0 Smear Tech's Comments VERIFIED Anion Gap 16 Estim Creat Clear Calc 78.2 Estimated GFR 51 Random Glucose 125 H Lactic Acid Calcium 9.8 Magnesium 2.3 Total Bilirubin 2.1 H AST 74 H ALT 101 H Alkaline Phosphatase 99 Total Creatine Kinase 1330 H Total Protein 8.3 H Albumin 4.1 Lipase 34 COVID-19 (CAROL) Negative COVID-19 Clin Com See Note Influenza Type A (THELMA) Negative Influenza Type B (THELMA) Negative Influenza A & B Note See Note 04/12/24 11:03 MCV MCH MCHC RDW Plt Count MPV Immature Gran % (Auto) Neut % (Auto) Lymph % (Auto) [place] % (Auto) Eos % (Auto) Baso % (Auto) Lymph # (Auto) [place] # (Auto) Eos # (Auto) Baso # (Auto) Abs Immat Gran (auto) Absolute Neuts (auto) Absolute Nucleated RBC Nucleated RBC % (auto) Smear Tech's Comments Anion Gap Estim Creat Clear Calc Estimated GFR Random Glucose Lactic Acid 1.0 Calcium Magnesium Total Bilirubin AST ALT Alkaline Phosphatase Total Creatine Kinase Total Protein Albumin Lipase COVID-19 (CAROL) COVID-19 Clin Com Influenza Type A (THELMA) Influenza Type B (THELMA) Influenza A & B Note Imaging Radiologist's Impressions: Impressions Abdomen/Pelvis CT 04/12/24 09:28 IMPRESSION: 1. No acute abnormality in the abdomen or pelvis. 2. Large stool burden in the colon. Fleischner guidelines were followed. Assessment and Plan (1) Rhabdomyolysis: Status: Acute (2) BELINDA (acute kidney injury): Status: Acute Plan Pt is a 38-year-old male with a PMH significant for opiate use disorder with IVDU (clean x2 months, on methadone 270mg), untreated hepatitis-C, and chronic xyaline wounds treated by [facility] wound care center who presents to the ED with?intractable nausea, vomiting, and abdominal pain since this morning. Pt will be admitted to the hospital for treatment and further evaluation of BELINDA, rhabdomyolysis, and xylazine wounds that have failed outpatient therapy. Intractable nausea, vomiting, abdominal pain Likely secondary to clindamycin for xylazine wounds Patient does not meet sepsis criteria: No leukocytosis, fever, tachycardia, or tachypnea; lactic acid WNL Will treat with clindamycin IV 600 mg Q8h Antiemetics Follow cultures BELINDA In the setting of above Creatinine 1.53 at time of presentation Patient received IVF in the ED Currently able to tolerate p.o. fluids Follow BNP Rhabdomyolysis CPK 1330 at time of presentation In the setting of above Patient received IVF in ED Trend CPK Hepatitis-C, untreated Mild transaminitis bilirubin 2.1, AST 74, ALT 101 Outpatient referral for treatment Opiate use disorder Continue methadone Full Code Attending:?Dr. Silverio DVT Prophylaxis: Lovenox Pt will require a hospitalization of at least two nights for treatment of?BELINDA, rhabdomyolysis, and zidovudine wounds that failed outpatient therapy. Given that patient is unable to tolerate p.o. clindamycin, wound cultures apparently resistant to doxycycline, and he is allergic to vancomycin, patient will require hospitalization for administration of IV clindamycin, as well as treatment with IVF for BELINDA and rhabdomyolysis. Quality Stroke Does the patient have a stroke diagnosis?: No VTE Prior VTE?: No VTE Risk Level:: Medical - moderate - high VTE Device Contraindication: Treatment Not Indicated VTE Drug Contraindication: N/A - Med Ordered
[2024-04-12] MEDS: Nicotine 21 MG PATCH.TD24 TRANSDERMA (13:11)
--- NOTE | 2024-04-12 13:36 | PHA.MEDREC ---
Pharmacy Consult ? Medication Reconciliation Pharmacy has completed the medication reconciliation.
--- NOTE | 2024-04-12 13:41 | PC.NURSE ---
Report given to overflow RN
[2024-04-12] MEDS: ALPRAZolam 0.5 MG TABLET 2 MG PO (14:10)
[2024-04-12] MEDS: cloNIDine HCL 0.2 MG TABLET PO ×2 (14:10→21:24)
[2024-04-12] MEDS: Sertraline HCL 100 MG TABLET PO (14:10)
[2024-04-12] MEDS: ondansetron HCL 4 MG/2 ML VIAL IVPUSH (14:47)
--- NOTE | 2024-04-12 15:07 | PC.NURSE ---
obtained report for yesenia ed rn, pt transferred to overflow bed 2, assumed care at 1500, patient a&ox3, ivf running per orders through central line, pt currently denying pain/discomfort, pt stated he did recently eat and is experiencing some nausea- medicated with zofran per orders, lungs clear, rr equal/non labored, call swartz within reach, will continue to monitor
[2024-04-12] MEDS: Amphetamine Mixed Salts 20 MG TABLET PO (17:47)
[2024-04-12] MEDS: 0.9 % Sodium Chloride Flush 3 ML SYRINGE IVFLUSH (21:24)
[2024-04-13] VITALS (7 sets, daily range): BP systolic 114–145; BP diastolic 72–80; PULSE 53–58; RESP 16–20; TEMP 36.4–36.9; O2SAT 96–98
[2024-04-13] MEDS: Clindamycin Phosphate/D5W 600 MG/50 ML PIGGYBACK 100 MG IV ×3 (03:14→18:19)
[2024-04-13] MEDS: Acetaminophen 325 MG TABLET 650 MG PO (03:21)
[2024-04-13 04:40] LABS: Appearance Urine Clear; Color Urine Yellow; Glucose Urine UA Negative (Negative); Leukocyte Esterase Urine Negative (Negative); Nitrite Urine Negative (Negative); PH 5.5 (5.0-9.0); UMIC TRIGGER UACC YES; Urine Blood Large (3+) (Negative); Urine Ketones Negative (Negative); Urine Protein Negative (Neg-Trace)
[2024-04-13 04:45] LABS: Bacteria Urine None Seen (None Seen); Hyaline Casts Urine 0-2 /LPF (0-2); Squamous Epithelial Cell Urine 0-2 /HPF (0-2); WBC Urine 0-5 /HPF (0-5)
[2024-04-13] MEDS: Amphetamine Mixed Salts 20 MG TABLET PO ×3 (05:53→15:31)
[2024-04-13 07:40] LABS: Anion Gap 9 (12-20); Blood Urea Nitrogen 17 mg/dL (9-16); Calcium 8.6 mg/dL (8.4-10.2); Carbon Dioxide 25 mmol/L (22-29); Chloride 108 mmol/L (96-108); Creatinine Clr Calc Pharmacy 83.7; Estimated Glomerular Filt Rate 55; Glucose Random 95 mg/dL (60-115); Potassium 3.9 mmol/L (3.3-5.1); Sodium 138 mmol/L (135-145)
[2024-04-13] MEDS: cloNIDine HCL 0.2 MG TABLET PO ×3 (09:05→21:26)
[2024-04-13] MEDS: methADONE HCl 20 MG/2 ML ORAL.CONC 270 MG PO (09:06)
[2024-04-13] MEDS: Nicotine 21 MG PATCH.TD24 TRANSDERMA (09:07)
[2024-04-13] MEDS: 0.9 % Sodium Chloride Flush 3 ML SYRINGE IVFLUSH ×2 (09:07→14:27)
[2024-04-13] MEDS: Sertraline HCL 100 MG TABLET PO (09:08)
[2024-04-13] MEDS: ALPRAZolam 0.5 MG TABLET 2 MG PO ×2 (09:18→18:19)
--- NOTE | 2024-04-13 10:01 | MHC.CM.PN ---
PATIENT REPORTS HE LIVES IN A HOME ALONE. FUNCTIONALLY INDEPENDENT. DENIES USE OF DME OR SERVICES. PCP FAUSTINA UNDERWOOD @ [facility] PT COMPLETED HCP NAMING HIS FATHER, PATY, [facility] WITH NO ALTERNATE. METHADONE THROUGH [facility]. WOUND CARE THROUGH [facility]OUN[facility]. DP: GOAL IS HOME SELF CARE. FAMILY WILL TRANSPORT. CM WILL CONTINUE TO FOLLOW.
--- NOTE | 2024-04-13 10:15 | P.PNIM_ITS ---
Subjective Subjective Date of Service: 04/13/24 Interval History: seen and examined no new complaints Review of Systems Negative except HPI/interval history. Physical Exam 2 Vital Signs: Vital Signs: Last Vital Signs Temp 97.9 F 04/13/24 08:00 Pulse 54 04/13/24 08:00 Resp 16 04/13/24 08:00 BP 120/78 04/13/24 09:05 Pulse Ox 98 04/13/24 08:00 O2 Del Method Room Air 04/13/24 08:00 BMI result Body Mass Index 25.6 Const: Other: General - no acute distress, appears comfortable Cardiovascular - regular rate and rhythm, S1-S2 Lungs - normal respiratory effort, clear to auscultation bilaterally, no wheezing Abdomen - soft, nontender, no rebound or guarding Extremities - no edema bilaterally Neuro - awake and alert, no focal deficits skin -- see admission H&P for pictures -- improving erythema Objective Data Active Medications Acetaminophen (Acetaminophen 325 Mg Tablet) 650 mg PO Q6H PRN PRN Reason: Pain, Mild (Pain Scale 1-3), fever or headache Last Admin: 04/13/24 03:21 Dose: 650 mg Documented By: SHRUTHI Alprazolam (Alprazolam 0.5 Mg Tablet) 2 mg PO BID PRN PRN Reason: anxiety Last Admin: 04/13/24 09:18 Dose: 2 mg Documented By: MELODY Amphetamine/Dextroamphetamine (Amphetamine Mixed Salts 20 Mg Tablet) 20 mg PO TID@0600,1200,1600 [facility] Last Admin: 04/13/24 05:53 Dose: 20 mg Documented By: SHRUTHI Benzonatate (Benzonatate 100 Mg Capsule) 100 mg PO TID PRN PRN Reason: Cough Calcium Carbonate (Calcium Carbonate 750 Mg Tab.Chew) 750 mg PO Q4H PRN PRN Reason: Heartburn Clonidine HCl (Clonidine Hcl 0.2 Mg Tablet) 0.2 mg PO TID [facility]; Protocol Last Admin: 04/13/24 09:05 Dose: 0.2 mg Documented By: MELODY Doxepin HCl (Doxepin Hcl 25 Mg Capsule) 100 mg PO BEDTIME PRN PRN Reason: Insomnia Enoxaparin Sodium (Enoxaparin Sodium 40 Mg/0.4 Ml Syringe) 40 mg SUBCUT Q24H [facility] Last Admin: 04/12/24 13:13 Dose: Not Given Documented By: PHYLLIS Non-Admin Reason: Patient Refused Clindamycin Phosphate (Cleocin) 600 mg in 50 mls @ 100 mls/hr IV Q8H [facility] Last Infusion: 04/13/24 03:54 Dose: Infused Documented By: SHRUTHI Lactated Ringer's (Lr) 1,000 mls @ 100 mls/hr IVCONT .Q10H [facility] Stop: 04/14/24 05:44 Melatonin (Melatonin 3 Mg Tablet) 6 mg PO BEDTIME PRN PRN Reason: Insomnia Methadone HCl (Methadone Hcl 20 Mg/2 Ml Oral.Conc) 270 mg PO DAILY [facility] Last Admin: 04/13/24 09:06 Dose: 270 mg Documented By: MELODY Nicotine (Nicotine 21 Mg Patch.Td24) 21 mg TRANSDERMA DAILY [facility] Last Admin: 04/13/24 09:07 Dose: 21 mg Documented By: MELODY Ondansetron HCl (Ondansetron Hcl 4 Mg/2 Ml Vial) 4 mg IVPUSH Q8H PRN PRN Reason: Nausea and Vomiting Last Admin: 04/12/24 14:47 Dose: 4 mg Documented By: ABELARDO Polyethylene Glycol (Polyethylene Glycol 3350 17 Gm Powd.Pack) 17 gm PO DAILY PRN PRN Reason: Constipation Sertraline HCl (Sertraline Hcl 100 Mg Tablet) 100 mg PO DAILY [facility] Last Admin: 04/13/24 09:08 Dose: 100 mg Documented By: MELODY Sodium Chloride (0.9 % Sodium Chloride Flush 3 Ml Syringe) 3 ml IVFLUSH QSHIFT [facility] Last Admin: 04/13/24 09:07 Dose: 3 ml Documented By: MELODY Labs 04/12/24 08:20 04/13/24 06:02 Labs: Laboratory Results - last 24 hr 04/12/24 04/13/24 04/13/24 11:03 04:30 06:02 Anion Gap 9 L Estim Creat Clear Calc 83.7 Estimated GFR 55 Random Glucose 95 Lactic Acid 1.0 Calcium 8.6 D Total Creatine Kinase 1926 H Urine Color Yellow Urine Appearance Clear Urine pH 5.5 Ur Specific [place] 1.010 Urine Protein Negative Urine Glucose (UA) Negative Urine Ketones Negative Urine Blood Large (3+) H Urine Nitrite Negative Ur Leukocyte Esterase Negative Urine RBC 11-20 H Urine WBC 0-5 Ur Squamous Epith Cells 0-2 Urine Bacteria None Seen Hyaline Casts 0-2 Assessment and Plan (1) Wounds, multiple: Status: Acute Plan Pt is a 38-year-old male with a PMH significant for opiate use disorder with IVDU (clean x2 months, on methadone 270mg), untreated hepatitis-C, and chronic xyaline wounds treated by [facility] care center who presents to the ED with?intractable nausea, vomiting, and abdominal pain since this morning. Pt will be admitted to the hospital for treatment and further evaluation of BELINDA, rhabdomyolysis, and xylazine wounds that have failed outpatient therapy. Intractable nausea, vomiting, abdominal pain Likely secondary to clindamycin for xylazine wounds Patient does not meet sepsis criteria: No leukocytosis, fever, tachycardia, or tachypnea; lactic acid WNL Will treat with clindamycin IV 600 mg Q8h Antiemetics prn Follow cultures BELINDA improving continue ivf Rhabdomyolysis slight upwards trend, will continue IVF Hepatitis-C, untreated Mild transaminitis bilirubin 2.1, AST 74, ALT 101 Outpatient referral for treatment Opiate use disorder Continue methadone Full Code Attending:?Dr. Silverio DVT Prophylaxis: Lovenox pt with infected wounds requiring antibioitc treatment, however, unable to tolerate oral clinda -- will continue IV an additional 24 hours and re-eval Quality Stroke Does the patient have a stroke diagnosis?: No VTE Prior VTE?: No VTE Risk Level:: Medical - moderate - high VTE Device Contraindication: Treatment Not Indicated VTE Drug Contraindication: N/A - Med Ordered
[2024-04-13] MEDS: Lactated Ringers 1,000 ML 100 ML IVCONT ×2 (11:08→21:37)
[2024-04-13] MEDS: Calcium Carbonate 750 MG TAB.CHEW PO (11:43)
[2024-04-14] MEDS: Clindamycin Phosphate/D5W 600 MG/50 ML PIGGYBACK 100 MG IV ×3 (02:57→18:38)
[2024-04-14] MEDS: Doxepin HCl 25 MG CAPSULE 100 MG PO (03:01)
[2024-04-14 03:32] VITALS: BP 118/69; PULSE 51; RESP 16; TEMP 36.6; O2SAT 97
[2024-04-14] MEDS: Amphetamine Mixed Salts 20 MG TABLET PO ×3 (06:04→15:37)
[2024-04-14 06:51] LABS: Anion Gap 13 (12-20); Blood Urea Nitrogen 14 mg/dL (9-16); Calcium 9.2 mg/dL (8.4-10.2); Carbon Dioxide 27 mmol/L (22-29); Chloride 105 mmol/L (96-108); Creatinine Clr Calc Pharmacy 94.2; Estimated Glomerular Filt Rate > 60; Glucose Random 135 mg/dL (60-115); Potassium 3.9 mmol/L (3.3-5.1); Sodium 141 mmol/L (135-145)
[2024-04-14 08:00] VITALS: BP 99/55; PULSE 53; RESP 17; TEMP 36.5; O2SAT 97
--- NOTE | 2024-04-14 09:26 | HO.PM.IMPN ---
Subjective Subjective Date of Service: 04/14/24 Interval History: seen and examined no new complaints Review of Systems Negative except HPI/interval history. Physical Exam Vital Signs: Vital Signs: Last Vital Signs Temp 97.7 F 04/14/24 08:00 Pulse 53 04/14/24 08:00 Resp 17 04/14/24 08:00 BP 99/55 L 04/14/24 08:00 Pulse Ox 97 04/14/24 08:00 O2 Del Method Room Air 04/14/24 08:00 BMI result Body Mass Index 25.6 Appearing in no acute distress lung sounds are clear to auscultation heart regular rate rhythm, clear S1, S2 positive bowel sounds, abdomen is soft, nontender neuro patient is alert x3, no focal deficits Objective Data Active Medications Acetaminophen (Acetaminophen 325 Mg Tablet) 650 mg PO Q6H PRN PRN Reason: Pain, Mild (Pain Scale 1-3), fever or headache Last Admin: 04/13/24 03:21 Dose: 650 mg Documented By: SHRUTHI Alprazolam (Alprazolam 0.5 Mg Tablet) 2 mg PO BID PRN PRN Reason: anxiety Last Admin: 04/13/24 18:19 Dose: 2 mg Documented By: MELODY Amphetamine/Dextroamphetamine (Amphetamine Mixed Salts 20 Mg Tablet) 20 mg PO TID@0600,1200,1600 [facility] Last Admin: 04/14/24 06:04 Dose: 20 mg Documented By: KASANDRA Benzonatate (Benzonatate 100 Mg Capsule) 100 mg PO TID PRN PRN Reason: Cough Calcium Carbonate (Calcium Carbonate 750 Mg Tab.Chew) 750 mg PO Q4H PRN PRN Reason: Heartburn Last Admin: 04/13/24 11:43 Dose: 750 mg Documented By: MELODY Clonidine HCl (Clonidine Hcl 0.2 Mg Tablet) 0.2 mg PO TID [facility]; Protocol Last Admin: 04/13/24 21:26 Dose: 0.2 mg Documented By: KASANDRA Docusate Sodium (Docusate Sodium 100 Mg Capsule) 100 mg PO BID [facility] Doxepin HCl (Doxepin Hcl 25 Mg Capsule) 100 mg PO BEDTIME PRN PRN Reason: Insomnia Last Admin: 04/14/24 03:01 Dose: 100 mg Documented By: KASANDRA Enoxaparin Sodium (Enoxaparin Sodium 40 Mg/0.4 Ml Syringe) 40 mg SUBCUT Q24H [facility] Last Admin: 04/13/24 11:07 Dose: Not Given Documented By: MELODY Non-Admin Reason: Patient Refused Clindamycin Phosphate (Cleocin) 600 mg in 50 mls @ 100 mls/hr IV Q8H [facility] Last Infusion: 04/14/24 04:21 Dose: Infused Documented By: KASANDRA Melatonin (Melatonin 3 Mg Tablet) 6 mg PO BEDTIME PRN PRN Reason: Insomnia Methadone HCl (Methadone Hcl 20 Mg/2 Ml Oral.Conc) 270 mg PO DAILY [facility] Last Admin: 04/13/24 09:06 Dose: 270 mg Documented By: MELODY Nicotine (Nicotine 21 Mg Patch.Td24) 21 mg TRANSDERMA DAILY [facility] Last Admin: 04/13/24 09:07 Dose: 21 mg Documented By: MELODY Ondansetron HCl (Ondansetron Hcl 4 Mg/2 Ml Vial) 4 mg IVPUSH Q8H PRN PRN Reason: Nausea and Vomiting Last Admin: 04/12/24 14:47 Dose: 4 mg Documented By: ABELARDO Polyethylene Glycol (Polyethylene Glycol 3350 17 Gm Powd.Pack) 17 gm PO DAILY PRN PRN Reason: Constipation Polyethylene Glycol (Polyethylene Glycol 3350 17 Gm Powd.Pack) 17 gm PO BID [facility] Sertraline HCl (Sertraline Hcl 100 Mg Tablet) 100 mg PO DAILY [facility] Last Admin: 04/13/24 09:08 Dose: 100 mg Documented By: MELODY Sodium Chloride (0.9 % Sodium Chloride Flush 3 Ml Syringe) 3 ml IVFLUSH QSHIFT [facility] Last Admin: 04/14/24 00:24 Dose: Not Given Documented By: KASANDRA Non-Admin Reason: IV Running Labs 04/12/24 08:20 04/14/24 05:58 Labs: Laboratory Results - last 24 hr 04/14/24 04/14/24 04/14/24 05:58 05:58 05:58 Hold Purple Top SEE NOTE Anion Gap 13 Cancelled Estim Creat Clear Calc 94.2 Cancelled Estimated GFR > 60 Random Glucose Calcium Total Creatine Kinase 04/14/24 04/14/24 04/14/24 05:58 05:58 05:58 Hold Purple Top Anion Gap Estim Creat Clear Calc Estimated GFR Cancelled Random Glucose 135 H Cancelled Calcium 9.2 D Cancelled Total Creatine Kinase 1248 H Microbiology Microbiology Results: Microbiology 04/12/24 11:03 Blood Culture - Preliminary Blood - Venous No growth after 24 hours. 04/12/24 08:20 Blood Culture - Preliminary Blood - Venous No growth after 24 hours. Assessment and Plan (1) Wounds, multiple: Status: Acute Plan Pt is a 38-year-old male with a PMH significant for opiate use disorder with IVDU (clean x2 months, on methadone 270mg), untreated hepatitis-C, and chronic xyaline wounds treated by [facility] wound care center who presents to the ED with?intractable nausea, vomiting, and abdominal pain since this morning. Pt will be admitted to the hospital for treatment and further evaluation of BELINDA, rhabdomyolysis, and xylazine wounds that have failed outpatient therapy. Intractable nausea, vomiting, abdominal pain Likely secondary to clindamycin for xylazine wounds clindamycin IV 600 mg Q8h Antiemetics prn Follow cultures BELINDA improving continue IVF Rhabdomyolysis Trending down IV fluids Hepatitis-C, untreated Mild transaminitis bilirubin 2.1, AST 74, ALT 101 Outpatient referral for treatment Opiate use disorder Continue methadone Full Code Attending:?Dr. Silverio DVT Prophylaxis: Lovenox pt with infected wounds requiring antibiotic treatment, BELINDA and rhabdo Quality Stroke Does the patient have a stroke diagnosis?: No VTE Prior VTE?: No VTE Risk Level:: Medical - moderate - high VTE Device Contraindication: Treatment Not Indicated VTE Drug Contraindication: N/A - Med Ordered
[2024-04-14] MEDS: 0.9 % Sodium Chloride Flush 3 ML SYRINGE IVFLUSH ×3 (09:36→22:48)
[2024-04-14] MEDS: methADONE HCl 20 MG/2 ML ORAL.CONC 270 MG PO (09:39)
[2024-04-14 09:43] VITALS: BP 112/58
[2024-04-14] MEDS: cloNIDine HCL 0.2 MG TABLET PO ×3 (09:43→20:08)
[2024-04-14] MEDS: Nicotine 21 MG PATCH.TD24 TRANSDERMA (09:43)
[2024-04-14] MEDS: Sertraline HCL 100 MG TABLET PO (09:48)
[2024-04-14] MEDS: ALPRAZolam 0.5 MG TABLET 2 MG PO (10:15)
--- NOTE | 2024-04-14 11:21 | MHC.CLN ---
NUTRITION CONSULT FOR POOR PO AND WEIGHT LOSS. POOR PO PRIOR TO ADM DUE TO VOMITING. INTAKE NOW 100% X 3 MEALS. REVIEW OF WEIGHT HX SHOWS WEIGHT STABLE X 2 MONTHS. WEIGHT LOSS X 9 MONTHS -6.9%. NOT SIGNIFICANT WEIGHT LOSS. DIET=REGULAR. NO NEW NUTRITION INTERVENTIONS AT THIS TIME.
--- NOTE | 2024-04-14 15:11 | HO.WOUND ---
Wound Consult: Initial 38yr old?Male admitted to [facility] on 04/12/24 - See progress notes and H&P for detailed history.? Wound consult placed for Left Forearm and Right Lower Leg.? Patient agreeable to assessment and photo documentation.? See chart review for details - patient states he is treating at outpt wound clinic with Dr. Sandhu - will continue to follow at time of d/c. Photos failed to upload. Left Forearm Etiology: ?Ulceration secondary to IVD injection site ?Present on Admission Wound Bed: various stages of healing - adherent scabs noted - small areas of partial thickness tissue loss noted - remains clean and no s/s of infection Drainage / Odor: Scant serosang noted on dressing Edges: ? irregular Cristal wound: Intact dry scar tissue noted - mild red pink erythema noted - ? No Induration, Fluctuance or Warmth noted Pain: denies at this time Goals of Treatment: ? Xeroform to allow for continued moist wound healing. Right Lower Leg Etiology: ?Ulceration secondary to IVD injection site ?Present on Admission Wound Bed: various stages of healing - adherent scabs noted - small areas of partial thickness tissue loss noted - remains clean and no s/s of infection Drainage / Odor: Scant serosang noted on dressing Edges: ? irregular Cristal wound: Intact dry scar tissue noted - mild red pink erythema noted - ? No Induration, Fluctuance or Warmth noted Pain: denies at this time Goals of Treatment: ? Xeroform to allow for continued moist wound healing. Recommendations: 1. Left Forearm and Right Lower Leg - Cleanse with NS, pat dry. Apply skin prep to periwound. Cover open wounds with xeroform, cover with dry gauze. ABD pad and gauze wrap. Change daily. Continue with home treatment plan per Dr. Sandhu at time of discharge. Re-consult wound care Nurse for wound deterioration or wound changes.
[2024-04-14 15:33] VITALS: BP 113/63; PULSE 59; RESP 18; TEMP 36.8; O2SAT 96
--- NOTE | 2024-04-14 18:04 | PC.NURSE ---
Femoral line was taken out by data warehouse specialist, pt. educated to stay in bed till 7pm today. Pt. tolerated well.
[2024-04-14 19:21] VITALS: BP 148/82; PULSE 60; RESP 16; TEMP 36.6; O2SAT 96
[2024-04-15] MEDS: Doxepin HCl 25 MG CAPSULE 100 MG PO (02:12)
[2024-04-15] MEDS: Clindamycin Phosphate/D5W 600 MG/50 ML PIGGYBACK 100 MG IV (02:12)
[2024-04-15 03:22] VITALS: BP 137/80; PULSE 54; RESP 16; TEMP 36.3; O2SAT 96
[2024-04-15] MEDS: Amphetamine Mixed Salts 20 MG TABLET PO (05:45)
[2024-04-15 07:07] LABS: Anion Gap 16 (12-20); Blood Urea Nitrogen 15 mg/dL (9-16); Carbon Dioxide 20 mmol/L (22-29); Chloride 106 mmol/L (96-108); Creatinine Clr Calc Pharmacy 89.1; Estimated Glomerular Filt Rate 60; Glucose Random 105 mg/dL (60-115); Potassium 4.2 mmol/L (3.3-5.1); Sodium 138 mmol/L (135-145)
[2024-04-15 07:54] VITALS: BP 112/63; PULSE 48; RESP 16; TEMP 36.6; O2SAT 97
--- NOTE | 2024-04-15 08:57 | PM.DS ---
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 Pt is a 38-year-old male with a PMH significant for opiate use disorder with IVDU (clean x2 months, on methadone 270mg), untreated hepatitis-C, and chronic xyaline wounds treated by [facility] wound care center who presents to the ED with?intractable nausea, vomiting, and abdominal pain since this morning. Patient has a history of infected xylazine wounds on upper and lower extremities that have been treated at [facility]. Was originally prescribed a 10-day course of doxycycline that he completed 3 days ago. However, wound cultures apparently grew MRSA resistant to doxy and pt was prescribed clindamycin but she began 4 days ago. Soon after began experiencing nausea with no vomiting. Stopped the clindaymycin two days ago but nausea persisted. Last night pt was woken from sleep with severe nausea and central abdominal pain, then had intractable projectile vomiting x2 hours, which prompted visit to the ED. Also reports subjective fever and chills, and has had reduced p.o. intake especially solids for the past 14 days while on antibiotics. Denies diarrhea. No chest pain/pressure, palpitations. Denies shortness of breath or difficulty breathing. Reports chronic constipation since being on methadone that is alleviated by Dulcolax chews. Reports having large bowel movement earlier today. n the ED pt's vitals were stable, WNL. Labs were significant for mild leukocytosis of 11.8, BUN of 20, creatinine 1.53, bilirubin 2.1, AST 74, ALT 101, and CPK 1330. Stable H& H. No significant electrolyte abnormalities. Lactic acid WNL at 1.0. CT?of abdomen and pelvis with no acute abnormality, they showed large stool burden in the colon. In the ED pt proved to be a difficult stick and a femoral line was placed. Pt was treated with alprazolam, IVF, methadone, and clindamycin. Pt will be admitted to the hospital for treatment and further evaluation of BELINDA, rhabdomyolysis, and xylazine wounds that have failed outpatient therapy 39-year-old man treated for intractable nausea and vomiting likely secondary to antibiotics treating Xenazine wounds. Patient has been treated with clindamycin and has done well while inpatient. Treated with antiemetics. Blood cultures remained negative. He was also treated for BELINDA but improved with IV fluids, BELINDA likely secondary to rhabdomyolysis this was also treated with IV fluids and CPK trended down significantly. Patient has an upcoming appointment with his wound care clinic and will complete the remaining course of his total 10 day antibiotics with 5 days left. Plan is to discharge patient and patient is in agreement with this Hepatitis-C. Untreated. Needs outpatient follow-up referral for treatment Opiate use disorder. Continue methadone Time Attestation Discharge Coordination Time (in mins): 35 Quality: Safe Use of Opioids Does Pt have an Active Cancer Diagnosis on the Problem List?: No Quality: Stroke Does the patient have a stroke diagnosis?: No Physical Exam Vital Signs: Vital Signs: Last Vital Signs Temp 97.8 F 04/15/24 07:54 Pulse 48 L 04/15/24 07:54 Resp 16 04/15/24 07:54 BP 112/63 04/15/24 07:54 Pulse Ox 97 04/15/24 07:54 O2 Del Method Room Air 04/15/24 07:54 BMI result Body Mass Index 25.6 Appearing in no acute distress head is normocephalic atraumatic eyes pupils are PERRLA sclera is anicteric mouth throat mucous membranes are intact and moist neck is supple no lymphadenopathy, no JVD noted lung sounds are clear to auscultation heart regular rate rhythm, clear S1, S2 positive bowel sounds, abdomen is soft, nontender neuro patient is alert x3, no focal deficits DS: Data Data Completed and Pending Labs on day of discharge: Laboratory Results - last 24 hr 04/15/24 05:20 Sodium 138 Potassium 4.2 Chloride 106 Carbon Dioxide 20 L Anion Gap 16 BUN 15 Creatinine 1.33 Estim Creat Clear Calc 89.1 Estimated GFR 60 Random Glucose 105 Calcium 9.0 Preliminary micro results at discharge 04/12/24 11:03 Blood Culture - Preliminary Blood - Venous No growth after 48 hours. 04/12/24 08:20 Blood Culture - Preliminary Blood - Venous No growth after 48 hours. Discharge Plan Discharge Anticipated Discharge Date/Time: 04/15/24 08:47 Patient Disposition: Home, Self-Care Discharge Diagnosis: Rhabdomyolysis Acute kidney injury Discharge Medications: New clindamycin HCl 300 mg capsule 300 mg PO Q6H Qty: 20 0RF Continued methadone [Methadone Intensol] 10 mg/mL Concentrate 270 mg PO DAILY sertraline 100 mg tablet 100 mg PO DAILY clonidine HCl 0.2 mg tablet 0.2 mg PO TID dextroamphetamine-amphetamine 20 mg tablet 1 tab PO TID@0600,1200,1600 alprazolam 2 mg tablet 2 mg PO BID PRN (Reason: anxiety) Dulcolax (magnesium hydroxide) 600 mg Tablet,Chewable 600 mg PO TID PRN (Reason: Constipation) doxepin 100 mg Capsule 100 mg PO BEDTIME PRN (Reason: Insomnia) Discharge Orders: Discharge Order (Routine); Ordered 04/15/24 Ordered By: Manuela Mei Diet: Advance to usual diet Activity on Discharge: As tolerated Stand Alone Forms: Patient Portal Discharge page Print Language: Sri Lankan Care Plan Goals: Follow-up at next scheduled appointment for wound care Complete antibiotics, make sure to take with food Follow-up with wound care clinic at next scheduled appointment Health Concerns: Rhabdomyolysis Acute kidney injury Plan of Treatment: Follow-up with primary care provider as needed Take all medications as prescribed Assessment: See discharge summary
[2024-04-15] MEDS: Sertraline HCL 100 MG TABLET PO (09:09)
[2024-04-15] MEDS: cloNIDine HCL 0.2 MG TABLET PO (09:09)
[2024-04-15] MEDS: ALPRAZolam 0.5 MG TABLET 2 MG PO (09:12)
[2024-04-15] MEDS: methADONE HCl 20 MG/2 ML ORAL.CONC 270 MG PO (09:13)
[2024-04-15] MEDS: Nicotine 21 MG PATCH.TD24 TRANSDERMA (09:15)
[2024-04-15 09:35] VITALS: PULSE 66
--- NOTE | 2024-04-15 10:45 | MHC.CM.PN ---
PT MEDICALLY CLEARED FOR DC HOME SELF CARE ON ORAL ABX, PT WILL ARRANGE FAMILY FOR TRANSPORT
== END 2024-04-15 10:45 | disposition home or self-care (01) | DRG 351 ==
LOC: HO.ED 11:16 → HO.EDOVER 12:45 → HO.S3 15:41
PROVIDERS: Family Medicine; Physician Assistant; Admitting Provider Student in an Organized Health Care Education/Training Program; Emergency Provider Emergency Medicine; PCP Physician Assistant; Visit Provider Nurse Practitioner Acute Care
DX: M62.82 Rhabdomyolysis (principal); N17.9 Acute kidney failure, unspecified; L97.819 Non-pressure chronic ulcer of other part of right lower leg with unspecified severity; B19.20 Unspecified viral hepatitis C without hepatic coma; R11.2 Nausea with vomiting, unspecified; T65.891S Toxic effect of other specified substances, accidental (unintentional), sequela; L98.499 Non-pressure chronic ulcer of skin of other sites with unspecified severity; T36.8X5A Adverse effect of other systemic antibiotics, initial encounter; F11.20 Opioid dependence, uncomplicated; F17.210 Nicotine dependence, cigarettes, uncomplicated; Z20.822 Contact with and (suspected) exposure to COVID-19; Z71.6 Tobacco abuse counseling; Z79.899 Other long term (current) drug therapy
CPT/HCPCS: 36415; 74176; 80048; 80053; 81001; 82550; 83605; 83690; 83735; 85025; 87040; 87502; 87635; 99285; J0736; J1650; J2405; J7120

== ENCOUNTER → 2024-04-12 12:15 | Outpatient (BNV) | payer OTHER, SELFPAY | PROVIDERS: Admitting Provider Student in an Organized Health Care Education/Training Program; Emergency Provider Emergency Medicine; Visit Provider Student in an Organized Health Care Education/Training Program | DX: T07.XXXA Unspecified multiple injuries, initial encounter (principal) | CPT/HCPCS: 99223; 99232; 99239 ==

== ENCOUNTER 2024-07-04 00:10 | Inpatient (IN) | payer OTHER, SELFPAY ==
--- NOTE | ~2024-07-04 | US_ITS ---
EXAMINATION: US RETROPERITONEAL LIMITED (RENAL ONLY) CLINICAL INFORMATION: Acute kidney insufficiency. COMPARISON: CT 04/12/2024 TECHNIQUE: Ultrasound evaluation of the kidneys. FINDINGS: RIGHT KIDNEY: 11.9 x 5.2 x 5.5 cm (SAG x AP x TRV). The kidney is normal in size, contour, and echogenicity. Renal cortical thickness is normal. No calculi or focal parenchymal lesions. No hydronephrosis. LEFT KIDNEY: 11.9 x 6.6 x 5.3 cm (SAG x AP x TRV). The kidney is normal in size, contour, and echogenicity. Renal cortical thickness is normal. No calculi or focal parenchymal lesions. No hydronephrosis. US/US renal BI IMPRESSION: Normal renal ultrasound. No hydronephrosis. Electronically signed by: Yair Manley MD 07/05/2024 11:21 AM EDT
[2024-07-04 00:21] VITALS: BP 105/81; PULSE 95; RESP 18; TEMP 36.6; O2SAT 97; BMI 25.0
--- NOTE | 2024-07-04 00:29 | PC.NURSE ---
pt states he is a very difficulty stick and only wants to be poked with the ultra sound guided iv - therefore unable to obtain labs from WR rn relief charge aware
--- NOTE | 2024-07-04 00:58 | PC.NURSE ---
asked patient to change into gown and patient poltely declined stating sensory issues and sores on skin that makes him self conscious. Will continue to reassess the situation.
--- NOTE | 2024-07-04 01:17 | ECG_ITS ---
Test Reason : NAUSEA VOMITTING Blood Pressure : / mmHG Vent. Rate : 079 BPM Atrial Rate : 079 BPM P-R Int : 158 ms QRS Dur : 100 ms QT Int : 438 ms P-R-T Axes : 055 021 029 degrees QTc Int : 502 ms Normal sinus rhythm Prolonged QT Abnormal ECG When compared with ECG of 01-APR-2016 12:09, QT has lengthened Heart rate has decreased Referred By: Saúl Valverde Electronically Signed By:ALLAN BAKER
--- NOTE | 2024-07-04 01:32 | ED_ITS ---
HPI - Nausea/Vomiting/Diarrhea General Chief complaint: Nausea/Vomiting/Diarrhea Stated complaint: vomiting Time Seen by Provider: 07/04/24 01:06 Source: patient and old records reviewed Mode of arrival: ambulatory Limitations: no limitations History of Present Illness ED Provider: KAY CHRIS Narrative: 39 yo male with PMH of prior IVDA, recurrent MRSA and xylazine wounds managed by rené Rice with recent admission here in March for rhabdo and BELINDA comes in today with c/o dark urine, waking up with muscle cramps and n/v. He feels he is in rhabdo again. He denies drug use, working out, supplements. He is not sure why this happened. He denies fevers. He did drink fluids in the waiting room. MD elicited complaint: nausea, vomiting and other (body aches) Pertinent past history: other Onset (ago): day(s) (1) Description of vomiting: watery Associated nausea: Yes Associated abdominal pain: No Location of pain: diffuse Radiation: diffuse Pain consistency: intermittent Severity: moderate Quality: aching Exacerbating factors: movement Relieving factors: none Context: other Associated symptoms: myalgias, loss of appetite, malaise, nausea/vomiting, decreased urine output and other (weakness) Related Data Home Medications ?Medication ?Instructions ?Recorded ?Confirmed alprazolam 2 mg tablet 2 mg PO BID PRN anxiety 04/12/24 04/12/24 clonidine HCl 0.2 mg tablet 0.2 mg PO TID 04/12/24 04/12/24 dextroamphetamine-amphetamine 20 1 tab PO TID@0600,1200,1600 04/12/24 04/12/24 mg tablet doxepin 100 mg capsule 100 mg PO BEDTIME PRN Insomnia 04/12/24 04/12/24 magnesium hydroxide 600 mg 600 mg PO TID PRN Constipation 04/12/24 04/12/24 chewable tablet (Dulcolax (magnesium hydroxide)) methadone 10 mg/mL oral 270 mg PO DAILY 04/12/24 04/12/24 concentrate (Methadone Intensol) sertraline 100 mg tablet 100 mg PO DAILY 04/12/24 04/12/24 Previous Rx's ?Medication ?Instructions ?Recorded clindamycin HCl 300 mg capsule 300 mg PO Q6H #20 caps 04/15/24 Allergies Allergy/AdvReac Type Severity Reaction Status Date / Time No Known Allergies Allergy Verified 07/04/24 00:25 Review of Systems 2 Review of Systems: Constitutional : No Weight loss, No Fever, No Chills ENT/Mouth : No sore throat, No Rhinorrhea Eyes: No Swelling, No Redness Cardiovascular : No Chest Pain, No SOB, NoEdema Respiratory : No Cough, No Sputum, No Wheezing Gastrointestinal : Positive Nausea, Positive Vomiting, no Diarrhea, no abdominal Pain, No Hematochezia, No Melena Genitourinary : No Dysuria, No Urinary Frequency, No Hematuria, No Urgency Musculoskeletal : No joint pain, pos Myalgias, No Joint Swelling Skin : No Skin Lesions, No rash Neuro : pos Weakness, No Numbness, No Dizziness, No Headache All other systems reviewed and are negative. Gastrointestinal: Gastrointestinal: Reports nausea PMFSH Past Medical History Attestation statement: The following information was validated with the patient. Source: old records reviewed Medical History Wounds, multiple Social History Social History Household Members: None Housing: Apartment Do you presently have visiting nurse or other home services: No Patient Tobacco Use Status: Current everyday Tobacco user Tobacco use type: Smokeless Tobacco Smoked in Last 30 Days: Yes e-Cigarette/Vaping Use: Never Used Second Hand Smoke Exposure: No Use of substances other than those prescribed or required for medical reasons: No Substance Use Type: Heroin and IV Drugs Advance Directives: Yes Advance Directives on File: Yes Advance Directives Date on File: 04/16/24 Do you have a plan to hurt others: No Plan service: No Physical Exam 2 Vital Signs: Vital Signs: Last Vital Signs Temp 97.8 F 07/04/24 00:21 Pulse 95 07/04/24 00:21 Resp 18 07/04/24 00:21 BP 105/81 07/04/24 00:21 Pulse Ox 97 07/04/24 00:21 O2 Del Method Room Air 07/04/24 00:21 BMI result Body Mass Index 25.0 Appearance: Alert. Oriented X3. No acute distress. Eyes: Pupils equal, round and reactive to light. ENT: Pharynx normal. Neck: Normal inspection. Neck supple. CVS: Normal heart rate and rhythm. Pulses normal. Respiratory: No respiratory distress. Breath sounds normal. Abdomen: Soft and nontender. Skin: Skin warm and dry. Normal skin color. Normal skin turgor. both legs reddened open chronic wounds with warmth and mild ttp no fluctuance or drainage Extremities: No lower extremity edema. No calf ttp chronic wounds on both arms Neuro: Oriented X 3. No motor deficit. No sensory deficit. Course Course Course Narrative: WBC count elevated at this time infection suspected IV vancomycin ordered 250am Medications Administered Generic Name Dose Route Start Last Admin Trade Name Freq PRN Reason Stop Dose Admin Sodium Chloride 1,000 mls @ 100 mls/hr 07/04/24 03:15 07/04/24 04:20 Ns IVCONT 100 mls/hr .Q10H ULYSSES Administration Lactated Ringer's 1,000 mls @ 150 mls/hr 07/04/24 04:30 07/04/24 04:42 Lr IVCONT 150 mls/hr .Q6H40M ULYSSES Administration Discontinued Medications Generic Name Dose Route Start Last Admin Trade Name Freq PRN Reason Stop Dose Admin Acetaminophen 650 mg 07/04/24 02:40 07/04/24 03:34 Acetaminophen 325 Mg Tablet PO 07/04/24 02:41 650 mg ONCE ONE Administration Sodium Chloride 1,000 mls @ 999 mls/hr 07/04/24 01:17 07/04/24 03:05 Ns IV 07/04/24 02:17 Infused .Q1H1M STA Infusion Sodium Chloride 1,000 mls @ 999 mls/hr 07/04/24 01:17 07/04/24 03:05 Ns IV 07/04/24 02:17 Infused .Q1H1M STA Infusion Vancomycin HCl 2,000 mg in 500 mls @ 250 mls/hr 07/04/24 02:49 07/04/24 04:20 Vancomycin/Ns IV 07/04/24 04:48 250 mls/hr ONCE ONE Administration Piperacillin Sod/Tazobactam 50 mls @ 100 mls/hr 07/04/24 03:09 07/04/24 04:17 Sod 3.375 gm/ Sodium Chloride IV 07/04/24 03:38 Infused ONCE ONE Infusion Lorazepam 1 mg 07/04/24 02:40 07/04/24 03:34 Lorazepam 2 Mg/Ml Vial IVPUSH 07/04/24 02:41 1 mg ONCE ONE Administration Procedures EJ/Peripheral Line Arm R: Time Out Performed: Yes Skin Cleansed in Sterile Fashion: Yes Size (gauge): 20 IV Secured and Dressing Applied: Yes Patient Tolerated Procedure: well and no complications Additional Comments: US guided Medical Decision Making Medical Decision Making [facility] Narrative: 39 yo male with PMH of prior IVDA, recurrent MRSA and xylazine wounds managed by rené Rice here with c/o n/v dehydration feelings, muscle aches - at this time will need labs, EKG, IVF x 2L. He denies known event causing rhabdo like symptoms, no signs of compartment syndrome on exam. Wounds on legs mild erythema and warmth - CBC ordered. Differential Diagnosis Differential Diagnoses: The differential diagnosis associated with the presentation includes dehydration, renal failure, rhabdo Admission/Observation Consideration of admission/observation: Escalation of care including admission/observation considered BELINDA and bandemia will admit for further management and workup Consult Healthcare Provider Management of the patient was discussed with: Hospitalist (will admit) Lab Data [facility] Lab Attestation statement: I reviewed the patient's lab results. 07/04/24 01:18 07/04/24 01:18 Labs: Lab Results 07/04/24 07/04/24 07/04/24 Range/Units 01:18 01:54 02:30 WBC 25.0 H (4.8-10.8) X10*3/uL RBC 4.22 L D (4.60-5.80) X10*6/uL Hgb 11.8 L (14.0-18.0) g/dl Hct 35.6 L D (42.0-52.0) % MCV 84.4 (80.0-98.0) fL MCH 28.0 (27.0-33.0) pg MCHC 33.1 (31.0-36.0) g/dl RDW 14.0 (11.0-16.0) % Plt Count 170 (160-400) X10*3/uL MPV 9.4 (9.4-12.4) fL Immature Gran % (Auto) Cancelled Neut % (Auto) Cancelled Lymph % (Auto) Cancelled Russell % (Auto) Cancelled Eos % (Auto) Cancelled Baso % (Auto) Cancelled Lymph # (Auto) Cancelled Russell # (Auto) Cancelled Eos # (Auto) Cancelled Baso # (Auto) Cancelled Abs Immat Gran (auto) Cancelled Absolute Neuts (auto) Cancelled Absolute Nucleated RBC 0.000 (0.0-0.012) X10*3/uL Nucleated RBC % (auto) 0.0 (0.0-0.2) /100WBC Neutrophils % (Manual) 69 (45-73) % Band Neutrophils % 22 H (3-5) % Lymphocytes % (Manual) 4 L (20-40) % Monocytes % (Manual) 4 (2-11) % Metamyelocytes % 1 % Abs Neuts (Manual) 22.8 H (2.0-8.3) X10*3/uL Lymphocytes # (Manual) 1.0 L (1.2-4.9) X10*3/uL Monocytes # (Manual) 1.0 (0.1-1.2) X10*3/uL Metamyelocytes # 0.3 X10*3/uL Toxic Vacuolation PRESENT Dohle Bodies PRESENT Platelet Estimate NORMAL (NORMAL) Plt Morphology Comment NORMAL RBC Morphology NORMAL Hold Purple Top SEE NOTE Sodium 138 (135-145) mmol/L Potassium 4.2 (3.3-5.1) mmol/L Chloride 101 (96-108) mmol/L Carbon Dioxide 28 (22-29) mmol/L Anion Gap 13 (12-20) BUN 29 H (9-16) mg/dL Creatinine 1.99 H (0.5-1.4) mg/dL Estim Creat Clear Calc 59.5 Estimated GFR 38 Random Glucose 103 (60-115) mg/dL Lactic Acid (0.5-2.0) mmol/L Calcium 8.8 (8.4-10.2) mg/dL Total Bilirubin 0.7 (0.0-1.0) mg/dL Direct Bilirubin 0.4 (0.0-0.5) mg/dL AST 110 H (5-37) U/L ALT 125 H (0-40) U/L Alkaline Phosphatase 123 H (39-117) U/L Total Creatine Kinase 96 (38-174) U/L Total Protein 6.4 L (6.5-8.0) g/dL Albumin 3.2 L (3.5-5.0) g/dL Lipase 18 (8-78) U/L Urine Color [place] A Urine Appearance Turbid Urine pH 5.0 (5.0-9.0) Ur Specific Waterflow 1.010 (1.005-1.025) Urine Protein 100 (2+) H (Neg-Trace) mg/dL Urine Glucose (UA) Negative (Negative) mg/dL Urine Ketones Negative (Negative) mg/dL Urine Blood Large (3+) H (Negative) Urine Nitrite Negative (Negative) Ur Leukocyte Esterase Moderate (2+) H (Negative) Urine RBC >20 H (0-2) /HPF Urine WBC 21-50 H (0-5) /HPF Ur Squamous Epith Cells 0-2 (0-2) /HPF Other Crystals Present Urine Bacteria None Seen (None Seen) Hyaline Casts 0-2 (0-2) /LPF Urine Opiates Screen POSITIVE H (Not Detect) Ur Buprenorphine Scrn Not Detected (Not Detect) ng/mL Ur Oxycodone Screen Not Detected (Not Detect) ng/mL Urine Methadone Screen Positive H (Not Detect) ng/mL Urine Fentanyl Screen POSITIVE H (Not Detect) Ur Barbiturates Screen Not Detected (Not Detect) Ur Phencyclidine Scrn Not Detected (Not Detect) Ur Amphetamines Screen Not Detected (Not Detect) U Benzodiazepines Scrn POSITIVE H (Not Detect) Urine Cocaine Screen POSITIVE H (Not Detect) U Marijuana (THC) Screen Not Detected (Not Detect) 07/04/24 Range/Units 03:20 WBC (4.8-10.8) X10*3/uL RBC (4.60-5.80) X10*6/uL Hgb (14.0-18.0) g/dl Hct (42.0-52.0) % MCV (80.0-98.0) fL MCH (27.0-33.0) pg MCHC (31.0-36.0) g/dl RDW (11.0-16.0) % Plt Count (160-400) X10*3/uL MPV (9.4-12.4) fL Immature Gran % (Auto) Neut % (Auto) Lymph % (Auto) Russell % (Auto) Eos % (Auto) Baso % (Auto) Lymph # (Auto) Russell # (Auto) Eos # (Auto) Baso # (Auto) Abs Immat Gran (auto) Absolute Neuts (auto) Absolute Nucleated RBC (0.0-0.012) X10*3/uL Nucleated RBC % (auto) (0.0-0.2) /100WBC Neutrophils % (Manual) (45-73) % Band Neutrophils % (3-5) % Lymphocytes % (Manual) (20-40) % Monocytes % (Manual) (2-11) % Metamyelocytes % % Abs Neuts (Manual) (2.0-8.3) X10*3/uL Lymphocytes # (Manual) (1.2-4.9) X10*3/uL Monocytes # (Manual) (0.1-1.2) X10*3/uL Metamyelocytes # X10*3/uL Toxic Vacuolation Dohle Bodies Platelet Estimate (NORMAL) Plt Morphology Comment RBC Morphology Hold Purple Top Sodium (135-145) mmol/L Potassium (3.3-5.1) mmol/L Chloride (96-108) mmol/L Carbon Dioxide (22-29) mmol/L Anion Gap (12-20) BUN (9-16) mg/dL Creatinine (0.5-1.4) mg/dL Estim Creat Clear Calc Estimated GFR Random Glucose (60-115) mg/dL Lactic Acid 1.3 (0.5-2.0) mmol/L Calcium (8.4-10.2) mg/dL Total Bilirubin (0.0-1.0) mg/dL Direct Bilirubin (0.0-0.5) mg/dL AST (5-37) U/L ALT (0-40) U/L Alkaline Phosphatase (39-117) U/L Total Creatine Kinase (38-174) U/L Total Protein (6.5-8.0) g/dL Albumin (3.5-5.0) g/dL Lipase (8-78) U/L Urine Color [place] A Urine Appearance Turbid Urine pH 5.5 (5.0-9.0) Ur Specific [place]flow 1.010 (1.005-1.025) Urine Protein 100 (2+) H (Neg-Trace) mg/dL Urine Glucose (UA) Negative (Negative) mg/dL Urine Ketones Negative (Negative) mg/dL Urine Blood Large (3+) H (Negative) Urine Nitrite Negative (Negative) Ur Leukocyte Esterase Small (1+) H (Negative) Urine RBC >20 H (0-2) /HPF Urine WBC 11-20 H (0-5) /HPF Ur Squamous Epith Cells 6-10 (0-2) /HPF Other Crystals Present Urine Bacteria None Seen (None Seen) Hyaline Casts 0-2 (0-2) /LPF Urine Opiates Screen (Not Detect) Ur Buprenorphine Scrn (Not Detect) ng/mL Ur Oxycodone Screen (Not Detect) ng/mL Urine Methadone Screen (Not Detect) ng/mL Urine Fentanyl Screen (Not Detect) Ur Barbiturates Screen (Not Detect) Ur Phencyclidine Scrn (Not Detect) Ur Amphetamines Screen (Not Detect) U Benzodiazepines Scrn (Not Detect) Urine Cocaine Screen (Not Detect) U Marijuana (THC) Screen (Not Detect) Independent Interpretation I performed an independent interpretation of an: EKG Interpretation: Rate: 79 Rhythm: NSR [place]: normal Normal P waves. Normal NOÉ. Normal QRS complex. ST T wave : normal no SAL qTC: 502 prior studies: no acute ischemia The study has been interpreted contemporaneously by me. . Independent Historian Clinical information obtained from an independent historian. History obtained from or confirmed by: Parent External Record Review External record reviewed: Inpatient record Critical Care Time Critical Care Time Critical Care Time: Yes Total Critical Care Time: 60 Attestation: review of records, IVF x 2L, admission I attest to this time spent taking care of the patient Discharge Plan Discharge Clinical Impression: BELINDA (acute kidney injury), Bandemia, Acute nausea with nonbilious vomiting, Polysubstance abuse Cellulitis Qualifiers: Site of cellulitis: extremity Site of cellulitis of extremity: lower extremity Laterality: unspecified laterality Qualified Code(s): L03.119 - Cellulitis of unspecified part of limb Patient Disposition: Admitted As Inpatient
[2024-07-04] MEDS: 0.9 % Sodium Chloride 1,000 ML 999 ML IV ×2 (01:50)
[2024-07-04 02:10] LABS: Appearance Urine Turbid; Color Urine Orange; Glucose Urine UA Negative (Negative); Leukocyte Esterase Urine Moderate (2+) (Negative); Nitrite Urine Negative (Negative); UMIC TRIGGER UACC YES; Urine Blood Large (3+) (Negative); Urine Ketones Negative (Negative); Urine Protein 100 (2+) mg/dL (Neg-Trace)
[2024-07-04 02:17] LABS: Bacteria Urine None Seen (None Seen); Hyaline Casts Urine 0-2 /LPF (0-2); Other Crystals Urine Present; RBC Urine >20 /HPF (0-2); Squamous Epithelial Cell Urine 0-2 /HPF (0-2); UACC Culture Trigger YES; WBC Urine 21-50 /HPF (0-5)
[2024-07-04 02:41] LABS: Hematocrit 35.6 % (42.0-52.0); Hemoglobin 11.8 g/dl (14.0-18.0); Mean Corpuscular HGB Conc 33.1 g/dl (31.0-36.0); Mean Corpuscular Volume 84.4 fL (80.0-98.0); Mean Platelet Volume 9.4 fL (9.4-12.4); Platelet Count 170 X10*3/uL (160-400); Red Blood Count 4.22 X10*6/uL (4.60-5.80)
[2024-07-04 02:56] LABS: Alanine Aminotransferase 125 U/L (0-40); Albumin Level 3.2 g/dL (3.5-5.0); Alkaline Phosphatase 123 U/L (39-117); Anion Gap 13 (12-20); Aspartate Amino Transferase 110 U/L (5-37); Bilirubin Direct 0.4 mg/dL (0.0-0.5); Bilirubin Total 0.7 mg/dL (0.0-1.0); Blood Urea Nitrogen 29 mg/dL (9-16); Calcium 8.8 mg/dL (8.4-10.2); Carbon Dioxide 28 mmol/L (22-29); Chloride 101 mmol/L (96-108); Creatinine Clr Calc Pharmacy 59.5; Estimated Glomerular Filt Rate 38; Glucose Random 103 mg/dL (60-115); Lipase 18 U/L (8-78); Potassium 4.2 mmol/L (3.3-5.1); Sodium 138 mmol/L (135-145); Total Protein 6.4 g/dL (6.5-8.0)
[2024-07-04 03:05] LABS: Neutrophils Percent Manual 69 % (45-73)
[2024-07-04 03:06] LABS: Band Neutrophils Percent 22 % (3-5); Lymphocytes Percent Manual 4 % (20-40); Metamyelocytes Absolute 0.3 X10*3/uL; Metamyelocytes Percent 1 %; Monocytes Percent Manual 4 % (2-11); Neutrophils Absolute Manual 22.8 X10*3/uL (2.0-8.3)
[2024-07-04 03:07] LABS: Dohle Bodies PRESENT; Platelet Estimate NORMAL (NORMAL); Platelet Morphology Comment NORMAL; RBC Morphology NORMAL; Toxic Vacuolation PRESENT
[2024-07-04 03:31] LABS: Amphetamine Screen Urine Not Detected (Not Detect); Barbiturates, Urine Not Detected (Not Detect); Benzodiazepines Screen Urine POSITIVE (Not Detect); Buprenorphine Scr Not Detected (Not Detect); Cannabinoid Screen Urine Not Detected (Not Detect); Cocaine Screen Urine POSITIVE (Not Detect); Fentanyl, urine POSITIVE (Not Detect); Methadone Screen, Urine Positive (Not Detect); Opiate Screen Urine POSITIVE (Not Detect); Oxycodone Screen Urine Not Detected (Not Detect); Phencyclidine Screen Urine Not Detected (Not Detect)
[2024-07-04 03:33] LABS: Appearance Urine Turbid; Color Urine Orange; Glucose Urine UA Negative (Negative); Leukocyte Esterase Urine Small (1+) (Negative); Nitrite Urine Negative (Negative); PH 5.5 (5.0-9.0); UMIC TRIGGER UACC YES; Urine Blood Large (3+) (Negative); Urine Ketones Negative (Negative); Urine Protein 100 (2+) mg/dL (Neg-Trace)
[2024-07-04] MEDS: Acetaminophen 325 MG TABLET 650 MG PO (03:34)
[2024-07-04] MEDS: LORazepam 2 MG/ML VIAL 1 MG IVPUSH (03:34)
[2024-07-04] MEDS: Piperacillin Sodium/Tazobactam 3.375 GM in 0.9 % Sodium Chloride 50 ML IV ×2 (03:34→09:41)
[2024-07-04 03:37] LABS: Lactic Acid 1.3 mmol/L (0.5-2.0)
[2024-07-04 03:40] LABS: Bacteria Urine None Seen (None Seen); Hyaline Casts Urine 0-2 /LPF (0-2); Other Crystals Urine Present; RBC Urine >20 /HPF (0-2); UACC Culture Trigger YES
[2024-07-04] MEDS: vancomycin/NS 2,000 MG/500 ML PLAST..BAG 250 MG IV (04:20)
[2024-07-04] MEDS: 0.9 % Sodium Chloride 1,000 ML 100 ML IVCONT (04:20)
[2024-07-04] MEDS: Lactated Ringers 1,000 ML 150 ML IVCONT ×2 (04:42→10:44)
--- NOTE | 2024-07-04 05:04 | P.HPHOSP_ITS ---
History of Present Illness Date of Service: 07/04/24 Attending physician on admission: Mireille Sutherland Chief Complaint: Nausea and vomiting Elie Jenkins is a very pleasant 39 years old man with past medical history significant for opiate use disorder with IVDU, chronic hep C, chronic xyaliine wounds (+) MRSA and recent hospitalization due to rhabdomyolysis presents to the emergency department complaining of generalized malaise associated with nausea, vomiting, profound sweating and abdominal pain. He also noted that his urine is dark. There is no fevers chills reported. He noted that his extremities wounds are more inflammed than usual. Did not report diarrhea. He admits use of a fentanyl and cocaine (not IV use). In the ED, he was found to have normal vital signs. Blood workup was remarkable for leukocytosis of 25.0, marked bandemia of 22%, toxic vacualation and presents of Dohle bodies. Creatinine is elevated at 1.99 and BUN 29 (1.33 and 15, respectively in March). Transaminases and alk-phos are elevated, but normal bilirubin and lipase. Total CK is normal, 96 and there is hypoalbuminemia. Urinalysis consistent with hematuria and urinary tract infection. Urine drug screen is positive for opiates, methadone, fentanyl, benzodiazepine and cocaine. ECG showed normal sinus rhythm with prolonged QT 502 ms. ED tx: NS 2 L bolus, acetaminophen 650 mg PO, Ativan 1 mg IV, vancomycin 2 g IV, Zosyn 3.375 g IV Review of Systems 2 Review of Systems: All 12 systems were reviewed and normal except as noted in HPI. [facility] Medical History Wounds, multiple Social History Household Members: None Housing: Apartment Do you presently have visiting nurse or other home services: No Patient Tobacco Use Status: Current everyday Tobacco user Tobacco use type: Smokeless Tobacco Smoked in Last 30 Days: Yes e-Cigarette/Vaping Use: Never Used Second Hand Smoke Exposure: No Use of substances other than those prescribed or required for medical reasons: No Substance Use Type: Heroin and IV Drugs Advance Directives: Yes Advance Directives on File: Yes Advance Directives Date on File: 04/16/24 Do you have a plan to hurt others: No Plan service: No Meds Allergies Allergy/AdvReac Type Severity Reaction Status Date / Time No Known Allergies Allergy Verified 07/04/24 00:25 Active Medications: Current Medications Acetaminophen (Acetaminophen 325 Mg Tablet) 975 mg PO Q6H PRN PRN Reason: Pain, Mild (Pain Scale 1-3), fever or headache Calcium Carbonate (Calcium Carbonate 750 Mg Tab.Chew) 750 mg PO Q4H PRN PRN Reason: Heartburn Enoxaparin Sodium (Enoxaparin Sodium 40 Mg/0.4 Ml Syringe) 40 mg SUBCUT Q24H [facility] Sodium Chloride (Ns) 1,000 mls @ 100 mls/hr IVCONT .Q10H [facility] Last Admin: 07/04/24 04:20 Dose: 100 mls/hr Lactated Ringer's (Lr) 1,000 mls @ 150 mls/hr IVCONT .Q6H40M [facility] Last Admin: 07/04/24 04:42 Dose: 150 mls/hr Piperacillin Sod/Tazobactam (Sod 3.375 gm/ Sodium Chloride) 50 mls @ 100 mls/hr IV Q8H [facility] Magnesium Hydroxide (Milk Of Magnesia 30 Ml Oral.Susp) 30 ml PO DAILY PRN PRN Reason: Constipation Melatonin (Melatonin 3 Mg Tablet) 6 mg PO BEDTIME PRN PRN Reason: Insomnia Pharmacy Consult (Consult Rx Vancomycin Dosing) 1 each MISCELLANE DAILY PRN PRN Reason: Consult order Pharmacy Consult (Consult Rx Vancomycin Dosing) 1 each MISCELLANE DAILY PRN PRN Reason: Consult order Sodium Chloride (0.9 % Sodium Chloride Flush 3 Ml Syringe) 3 ml IVFLUSH QSHIFT [facility] Home Medications ?Medication ?Instructions ?Recorded ?Confirmed ?Last Taken ?Type alprazolam 2 mg tablet 2 mg PO BID PRN anxiety 04/12/24 04/12/24 Unknown History clonidine HCl 0.2 mg tablet 0.2 mg PO TID 04/12/24 04/12/24 04/11/24 History dextroamphetamine-amphetamine 20 1 tab PO TID@0600,1200,1600 04/12/24 04/12/24 04/11/24 History mg tablet doxepin 100 mg capsule 100 mg PO BEDTIME PRN Insomnia 04/12/24 04/12/24 Unknown History magnesium hydroxide 600 mg 600 mg PO TID PRN Constipation 04/12/24 04/12/24 Unknown History chewable tablet (Dulcolax (magnesium hydroxide)) methadone 10 mg/mL oral 270 mg PO DAILY 04/12/24 04/12/24 04/11/24 History concentrate (Methadone Intensol) sertraline 100 mg tablet 100 mg PO DAILY 04/12/24 04/12/24 04/11/24 History Physical Exam 2 Vital Signs and Narrative: Vital Signs: Last Vital Signs Temp 97.8 F 07/04/24 00:21 Pulse 95 07/04/24 00:21 Resp 18 07/04/24 00:21 BP 105/81 07/04/24 00:21 Pulse Ox 97 07/04/24 00:21 O2 Del Method Room Air 07/04/24 00:21 BMI result Body Mass Index 25.0 Constitutional - Awake and Alert, No apparent distress. Pleasant and cooperative. HEENT - PERRL, EOMI Heart - S1S2, RRR, No edema Lungs - Normal lung expansion, Normal respiratory effort, No respiratory distress, CTA bilaterally Abdomen - NT / ND; +BS; No rebound or guarding Extremities - Multiple track pelletier involving all extremities with erythematous borders, no discharges. Musculoskeletal - Normal inspection, normal ROM Skin - Warm/Dry Neurological - Alert & oriented x3. No focal weakness grossly noted. Normal speech. Psychological - Appropriate affect Results Labs 07/04/24 01:18 07/04/24 01:18 Labs: Laboratory Results - last 24 hr 07/04/24 07/04/24 07/04/24 01:18 01:54 02:30 MCV 84.4 MCH 28.0 MCHC 33.1 RDW 14.0 Plt Count 170 MPV 9.4 Immature Gran % (Auto) Cancelled Neut % (Auto) Cancelled Lymph % (Auto) Cancelled [place] % (Auto) Cancelled Eos % (Auto) Cancelled Baso % (Auto) Cancelled Lymph # (Auto) Cancelled [place] # (Auto) Cancelled Eos # (Auto) Cancelled Baso # (Auto) Cancelled Abs Immat Gran (auto) Cancelled Absolute Neuts (auto) Cancelled Absolute Nucleated RBC 0.000 Nucleated RBC % (auto) 0.0 Neutrophils % (Manual) 69 Band Neutrophils % 22 H Lymphocytes % (Manual) 4 L Monocytes % (Manual) 4 Metamyelocytes % 1 Abs Neuts (Manual) 22.8 H Lymphocytes # (Manual) 1.0 L Monocytes # (Manual) 1.0 Metamyelocytes # 0.3 Toxic Vacuolation PRESENT Dohle Bodies PRESENT Platelet Estimate NORMAL Plt Morphology Comment NORMAL RBC Morphology NORMAL Hold Purple Top SEE NOTE Anion Gap 13 Estim Creat Clear Calc 59.5 Estimated GFR 38 Random Glucose 103 Lactic Acid Calcium 8.8 Total Bilirubin 0.7 Direct Bilirubin 0.4 AST 110 H ALT 125 H Alkaline Phosphatase 123 H Total Creatine Kinase 96 Total Protein 6.4 L Albumin 3.2 L Lipase 18 Urine Color [place] A Urine Appearance Turbid Urine pH 5.0 Ur Specific [place] 1.010 Urine Protein 100 (2+) H Urine Glucose (UA) Negative Urine Ketones Negative Urine Blood Large (3+) H Urine Nitrite Negative Ur Leukocyte Esterase Moderate (2+) H Urine RBC >20 H Urine WBC 21-50 H Ur Squamous Epith Cells 0-2 Other Crystals Present Urine Bacteria None Seen Hyaline Casts 0-2 Urine Opiates Screen POSITIVE H Ur Buprenorphine Scrn Not Detected Ur Oxycodone Screen Not Detected Urine Methadone Screen Positive H Urine Fentanyl Screen POSITIVE H Ur Barbiturates Screen Not Detected Ur Phencyclidine Scrn Not Detected Ur Amphetamines Screen Not Detected U Benzodiazepines Scrn POSITIVE H Urine Cocaine Screen POSITIVE H U Marijuana (THC) Screen Not Detected 07/04/24 03:20 MCV MCH MCHC RDW Plt Count MPV Immature Gran % (Auto) Neut % (Auto) Lymph % (Auto) [place] % (Auto) Eos % (Auto) Baso % (Auto) Lymph # (Auto) [place] # (Auto) Eos # (Auto) Baso # (Auto) Abs Immat Gran (auto) Absolute Neuts (auto) Absolute Nucleated RBC Nucleated RBC % (auto) Neutrophils % (Manual) Band Neutrophils % Lymphocytes % (Manual) Monocytes % (Manual) Metamyelocytes % Abs Neuts (Manual) Lymphocytes # (Manual) Monocytes # (Manual) Metamyelocytes # Toxic Vacuolation Dohle Bodies Platelet Estimate Plt Morphology Comment RBC Morphology Hold Purple Top Anion Gap Estim Creat Clear Calc Estimated GFR Random Glucose Lactic Acid 1.3 Calcium Total Bilirubin Direct Bilirubin AST ALT Alkaline Phosphatase Total Creatine Kinase Total Protein Albumin Lipase Urine Color [place] A Urine Appearance Turbid Urine pH 5.5 Ur Specific [place] 1.010 Urine Protein 100 (2+) H Urine Glucose (UA) Negative Urine Ketones Negative Urine Blood Large (3+) H Urine Nitrite Negative Ur Leukocyte Esterase Small (1+) H Urine RBC >20 H Urine WBC 11-20 H Ur Squamous Epith Cells 6-10 Other Crystals Present Urine Bacteria None Seen Hyaline Casts 0-2 Urine Opiates Screen Ur Buprenorphine Scrn Ur Oxycodone Screen Urine Methadone Screen Urine Fentanyl Screen Ur Barbiturates Screen Ur Phencyclidine Scrn Ur Amphetamines Screen U Benzodiazepines Scrn Urine Cocaine Screen U Marijuana (THC) Screen Assessment and Plan (1) BELINDA (acute kidney injury): Status: Acute (2) Polysubstance abuse: Status: Acute (3) Acute nausea with nonbilious vomiting: Status: Acute Plan Elie Jenkins is a 39 y/o admitted with: * Acute kidney injury likely multifactorial: Vomiting, poor PO intake, polysubstance abuse and UTI. Admit to hospitalist service. Continue IV fluids. Continue to monitor renal function. Avoid nephrotoxic agents. Antiemetic therapy as needed. * Leukocytosis and bandemia secondary urinary tract infection and infected chronic wounds. No severe sepsis criteria. Continue empiric IV antibiotic therapy with Zosyn IV and vancomycin IV. Continue IV fluids. Blood and urine cultures obtained -will follow results. * Elevated LFTs. Likely secondary to chronic hep C. Continue to monitor. * Worsening anemia, due to hematuria? acute infection? Continue to monitor for now. * Abdominal pain, nausea and vomiting, resolved. Likely multifactorial: Polysubstance abuse, acute infection. Continue IV fluids for now. * Opiate use disorder. Continue methadone 270 mg PO daily. * Polysubstance abuse: Cocaine, fentanyl and BDZ. Additional medicine consult. DVT prophylaxis: Lovenox Code status: Full Patient will need hospitalization for at least 2 midnights for BELINDA and UTI and management with empiric IV antibiotic therapy and IV fluids. Quality Stroke Does the patient have a stroke diagnosis?: No VTE Prior VTE?: No VTE Risk Level:: Medical - moderate - high VTE Device Contraindication: Treatment Not Indicated VTE Drug Contraindication: N/A - Med Ordered
--- NOTE | 2024-07-04 06:05 | MHC.EDTECH ---
PT refuses to tar heat exchanger cleaner into a hospital gown due to sensory issues per pt
--- NOTE | 2024-07-04 06:18 | PHA.PROG ---
Admission Date/Time: July 04, 2024 04:28 Indication: Weight in k.71 kg Adjusted body weight in Kg: [place] body weight in Kg: Obesity Dosing Indication % IBW: Serum Creatinine - Last 168 Hours 07/04/24 01:18 Creatinine 1.99 H Estimated CrCl and GFR - Last 168 Hours 07/04/24 01:18 Estim Creat Clear Calc 59.5 Estimated GFR 38 Vancomycin Loading Dose: 2000mg Current Vancomycin Dosing Regimen: 1500mg q24H Vancomycin Monitoring using AUC goal of 400 - 600 range with trough as surrogate marker: 517 mg/L Date and Time for next Vancomycin Level to be drawn: 07/05/24 @0600 Pharmacist Comments on Vancomycin Plan: Patient currently in BELINDA per notes, will opt for longer interval option of 1500mg q24h with an estimated trough of 15.6. Regimen to start tomorrow at 0800 to give adequate time for levels to be drawn and assessed by pharmacy. Vancomycin dosing will take advantage of [employer] as a clinical decision support tool that uses Bayesian modeling to calculate individual patient's pharmacokinetic parameters and forecast the patient's drug concentration time course with the target goal AUC 24 range of 400 - 600 mg/L/hr.
[2024-07-04 06:58] VITALS: BP 137/81; PULSE 79; RESP 13; TEMP 36.9; O2SAT 97
[2024-07-04] MEDS: methADONE HCl 20 MG/2 ML ORAL.CONC 270 MG PO (07:06)
[2024-07-04 08:57] VITALS: BMI 26.3
[2024-07-04 09:02] VITALS: BP 142/91; PULSE 82; RESP 16; TEMP 36.6; O2SAT 98
--- NOTE | 2024-07-04 09:15 | PHA.MEDREC ---
Pharmacy Consult ? Medication Reconciliation Pharmacy has completed the medication reconciliation. Spoke with pt at bedside to confirm medications.
[2024-07-04] MEDS: Enoxaparin Sodium 40 MG/0.4 ML SYRINGE SUBCUT (09:36)
--- NOTE | 2024-07-04 09:36 | MHC.CM.PN ---
FROM HOME ALONE. FUNCTIONALLY INDEPENDENT. DENIES USE OF SERVICES OR DME. PCP FAUSTINA UNDERWOOD @ [facility] HCP ON FILE AND VERIFIED METHADONE @ [facility] FOLLOWED BY [facility] FOR CHRONIC WOUNDS DP: GOAL IS HOME, SELF CARE, RESUME OUTPT SERVICES. FATHER TO TRANSPORT. CM WILL CONTINUE TO FOLLOW.
[2024-07-04] MEDS: Lactulose 20 GM/30 ML SOLUTION PO ×3 (09:37→19:42)
[2024-07-04] MEDS: Docusate Sodium 100 MG CAPSULE PO ×2 (09:37→19:42)
--- NOTE | 2024-07-04 10:00 | HO.WOUND ---
Wound Consult: Attempted 39yr old male admitted to [facility] on 07/04/24 - see H&P for detailed history. Wound consult placed for chronic bilateral arm and lower leg wounds. Patient treats at outpt wound clinic at [facility] for his wounds. Arrival to bedside patient requested to use bathroom - will return for assessment at future date and or time.
--- NOTE | 2024-07-04 10:17 | PM.EVENT ---
Event Note Date of Service: 07/04/24 Event Note: The patient was seen and evaluated this morning Feels better already Abdominal pain and nausea improved infected wounds looks better pending cultures to get wound nurse eval. Addiction team eval. Continue Vancomycin and Zosyn Time Spent With Patient Time: Total time managing care of this patient today ____ minutes.
[2024-07-04] MEDS: ALPRAZolam 0.5 MG TABLET 2 MG PO ×2 (10:33→19:42)
[2024-07-04] MEDS: Sertraline HCL 50 MG TABLET 150 MG PO (10:34)
--- NOTE | 2024-07-04 10:37 | HE.PHANOTE ---
RE: methadone Patient received 270mg at [facility] on 07/03/24 @2458
[2024-07-04] MEDS: Amphetamine Mixed Salts 20 MG TABLET PO ×2 (12:48→17:05)
--- NOTE | 2024-07-04 13:16 | MHC.RECOVRN ---
Met with pt in 379 after consult placed to Addiction Medicine for substance use. Pt had presented to the ED reporting very dark urine and suspecting rhabdo, pt also reported flu like symptoms and vomiting. Upon evaluation, pt admitted for BELINDA. Pt laying in bed, eyes closed, responds to this marine underwriter but keeps eyes closed during most of conversation, guarded. Pt reports heroin/fentanyl use, 3 bundles daily x 4 days. Pt reports prior to 4 days ago he had been in recovery x 3 months. Pt reports that was longest time in recovery on my own free will since I was 14. Pt reports longest period in recovery was in half-way x 2 years. Pt reports he is currently on methadone, 270 mg daily through [facility] in [place]. Pt sees counselor, Jack, once weekly at [facility] which pt finds helpful. Pt reports he has been on methadone x 2 years, at 270 mg x 1 year. Pt reports biggest supports are dad, aunt, and brother. Pt reports dad recently had a stroke which has been stressful as they are very close. Dad requires extra care now which pt helps with. Pt reports he goes to [facility] wound care center once weekly for care of xylazine wounds. 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 Discussed other recovery resources and supports, pt does not wish to commit to anything at this time due to current obligations. Pt encourgaed to reach out to t/w if needed. Denies other questions or concerns for t/w. Discussed with Natasha Champagne APRN.
[2024-07-04 15:33] VITALS: BP 137/91; PULSE 69; RESP 20; TEMP 36; O2SAT 97
[2024-07-04] MEDS: cloNIDine HCL 0.1 MG TABLET PO ×2 (15:45→19:42)
[2024-07-04 19:19] VITALS: BP 140/87; PULSE 99; RESP 20; TEMP 36.1; O2SAT 98
[2024-07-04 19:42] VITALS: BP 140/87
[2024-07-05 01:00] VITALS: BP 145/82; PULSE 91; RESP 16; TEMP 36.6; O2SAT 99
[2024-07-05] MEDS: Piperacillin Sodium/Tazobactam 3.375 GM in 0.9 % Sodium Chloride 50 ML IV (01:10)
[2024-07-05] MEDS: LORazepam 2 MG/ML VIAL 1 MG IVPUSH ×2 (01:10→15:57)
[2024-07-05] MEDS: Lactated Ringers 1,000 ML 150 ML IVCONT ×4 (01:36→23:47)
--- NOTE | 2024-07-05 01:58 | PC.NURSE ---
assumed care of this patient at 2300. IV had been lost at 5pm per previous rn report and multiple attempts. chief of internal medicine to floor for IV approximately 0030 with success. Patient did miss 1800 dose of zosyn as next dose was just about due by the time access was attained.
[2024-07-05] MEDS: Acetaminophen 325 MG TABLET 975 MG PO (03:03)
[2024-07-05 03:41] VITALS: BP 116/72; PULSE 80; RESP 16; TEMP 36.3; O2SAT 97
[2024-07-05] MEDS: hydrOXYzine HCL 50 MG TABLET PO ×2 (04:08→20:56)
[2024-07-05] MEDS: LORazepam 0.5 MG TABLET PO (04:08)
[2024-07-05] MEDS: Milk of Magnesia 30 ML ORAL.SUSP PO (04:09)
--- NOTE | 2024-07-05 06:10 | PC.NURSE ---
residence life director notified me this patient is refusing his morning lab work unless it is done with ultrasound.
[2024-07-05] MEDS: Amphetamine Mixed Salts 20 MG TABLET PO ×3 (06:56→15:51)
[2024-07-05] MEDS: ALPRAZolam 0.5 MG TABLET 2 MG PO ×2 (07:01→20:51)
[2024-07-05 07:15] LABS: Basophils Percent Auto 0.3 % (0-2); Eosinophils Absolute Auto 0.5 X10*3/uL (0.0-0.4); Hematocrit 31.8 % (42.0-52.0); Hemoglobin 10.5 g/dl (14.0-18.0); Imm Gran Abs Auto 0.07 X10*3/uL (0.00-0.03); Imm Gran Pct Auto 0.5 % (0.0-0.4); Lymphocytes Absolute Auto 1.5 X10*3/uL (1.2-4.9); Lymphocytes Percent Auto 11.9 % (20-40); MANUAL DIFF FLAG NO; Mean Corpuscular HGB Conc 32.8 g/dl (31.0-36.0); Mean Corpuscular Hemoglobin 28.1 pg (27.0-33.0); Mean Corpuscular Hemoglobin 28.3 pg (27.0-33.0); Mean Corpuscular Volume 85.6 fL (80.0-98.0); Mean Corpuscular Volume 85.7 fL (80.0-98.0); Mean Platelet Volume 9.2 fL (9.4-12.4); Mean Platelet Volume 9.7 fL (9.4-12.4); Monocytes Absolute Auto 0.8 X10*3/uL (0.1-1.2); Monocytes Percent Auto 5.9 % (2-11); Neutrophils Percent Auto 77.4 % (45-73); Platelet Count 145 X10*3/uL (160-400); Red Blood Count 3.71 X10*6/uL (4.60-5.80); Red Blood Count 3.74 X10*6/uL (4.60-5.80); Red Cell Distribution Width 14.5 % (11.0-16.0); Red Cell Distribution Width 14.6 % (11.0-16.0)
[2024-07-05 07:20] VITALS: BP 149/87; PULSE 84; RESP 18; TEMP 36.4; O2SAT 97
[2024-07-05 07:50] LABS: Vancomycin Random 14.5 mcg/mL (15-20)
[2024-07-05 07:52] LABS: Anion Gap 13 (12-20); Blood Urea Nitrogen 36 mg/dL (9-16); Calcium 8.7 mg/dL (8.4-10.2); Carbon Dioxide 25 mmol/L (22-29); Chloride 106 mmol/L (96-108); Estimated Glomerular Filt Rate 24; Glucose Random 104 mg/dL (60-115); Potassium 4.2 mmol/L (3.3-5.1); Sodium 140 mmol/L (135-145)
--- NOTE | 2024-07-05 08:00 | HE.PHANOTE ---
Re Vanc SCr increased to 2.89 overnight. Trough came back at 14.5 but now projecting to be >22 at steady state. Will reduce dose to 750mg q24H for a projected AUC of 436 mg/L and trough of 14.0. Recheck level tomorrow at 0700.
[2024-07-05 08:15] LABS: Alanine Aminotransferase 76 U/L (0-40); Albumin Level 3.3 g/dL (3.5-5.0); Alkaline Phosphatase 95 U/L (39-117); Anion Gap 13 (12-20); Aspartate Amino Transferase 52 U/L (5-37); Bilirubin Total 0.3 mg/dL (0.0-1.0); Blood Urea Nitrogen 36 mg/dL (9-16); Calcium 8.7 mg/dL (8.4-10.2); Carbon Dioxide 24 mmol/L (22-29); Chloride 107 mmol/L (96-108); Creatinine Clr Calc Pharmacy 40.8; Estimated Glomerular Filt Rate 24; Glucose Random 105 mg/dL (60-115); Potassium 4.5 mmol/L (3.3-5.1); Sodium 139 mmol/L (135-145); Total Protein 6.7 g/dL (6.5-8.0)
[2024-07-05] MEDS: cloNIDine HCL 0.1 MG TABLET PO ×3 (08:29→20:51)
[2024-07-05] MEDS: vancomycin HCL 750 MG in 0.9 % Sodium Chloride 250 ML 265 MG IV (08:29)
[2024-07-05] MEDS: Sertraline HCL 50 MG TABLET 150 MG PO (08:29)
[2024-07-05] MEDS: Docusate Sodium 100 MG CAPSULE PO ×2 (08:29→20:51)
[2024-07-05] MEDS: Lactulose 20 GM/30 ML SOLUTION PO ×3 (08:30→20:51)
[2024-07-05] MEDS: methADONE HCl 20 MG/2 ML ORAL.CONC 270 MG PO (08:30)
[2024-07-05] MEDS: Enoxaparin Sodium 40 MG/0.4 ML SYRINGE SUBCUT (08:30)
--- NOTE | 2024-07-05 10:44 | P.PNIM_ITS ---
Subjective Subjective Date of Service: 07/05/24 Interval History: seen and evaluated this morning reporting withdrawal symptoms of generalized pain and nausea tolerating diet Creatinine worse today erythema improving Review of Systems Review of Systems: Yes all other systems are reviewed and are negative Physical Exam 2 Vital Signs: Vital Signs: Last Vital Signs Temp 97.6 F 07/05/24 07:20 Pulse 84 07/05/24 07:20 Resp 18 07/05/24 07:20 BP 149/87 H 07/05/24 07:20 Pulse Ox 97 07/05/24 07:20 O2 Del Method Room Air 07/05/24 07:20 BMI result Body Mass Index 26.3 Const: Other: Constitutional : Awake, interactive, in mild distress Neck : Normal inspection, Supple Cardiovascular : RRR, no JVP, no lower extremity edema Respiratory : good bilateral air entry, no crackles, wheezes or rhonchi Gastrointestinal: soft, lax, Normal bowel sounds, Non tender Skin : Warm, Dry, multiple injection pelletier with erythema improving in bilateral lower extremities Neurological : Alert & oriented x3, No focal deficit Objective Data Active Medications Acetaminophen (Acetaminophen 325 Mg Tablet) 975 mg PO Q6H PRN PRN Reason: Pain, Mild (Pain Scale 1-3), fever or headache Last Admin: 07/05/24 03:03 Dose: 975 mg Documented By: RADHA Alprazolam (Alprazolam 0.5 Mg Tablet) 2 mg PO BID PRN PRN Reason: anxiety Last Admin: 07/05/24 07:01 Dose: 2 mg Documented By: RADHA Amphetamine/Dextroamphetamine (Amphetamine Mixed Salts 20 Mg Tablet) 20 mg PO TID@0600,1200,1600 [facility] Last Admin: 07/05/24 06:56 Dose: 20 mg Documented By: RADHA Calcium Carbonate (Calcium Carbonate 750 Mg Tab.Chew) 750 mg PO Q4H PRN PRN Reason: Heartburn Clonidine HCl (Clonidine Hcl 0.1 Mg Tablet) 0.1 mg PO TID [facility]; Protocol Last Admin: 07/05/24 08:29 Dose: 0.1 mg Documented By: NIKOLE Clonidine HCl (Clonidine Hcl 0.1 Mg Tablet) 0.1 mg PO TID PRN; Protocol PRN Reason: Withdrawal symptoms Docusate Sodium (Docusate Sodium 100 Mg Capsule) 100 mg PO BID [facility] Last Admin: 07/05/24 08:29 Dose: 100 mg Documented By: NIKOLE Enoxaparin Sodium (Enoxaparin Sodium 40 Mg/0.4 Ml Syringe) 40 mg SUBCUT Q24H [facility] Last Admin: 07/05/24 08:30 Dose: 40 mg Documented By: NIKOLE Hydromorphone HCl (Hydromorphone Hcl 0.5 Mg/0.5 Ml Syringe) 0.5 mg IVPUSH Q4H PRN; Protocol PRN Reason: Opiate Withdrawal Hydroxyzine HCl (Hydroxyzine Hcl 50 Mg Tablet) 50 mg PO Q6H PRN PRN Reason: anxiety/restlessness Last Admin: 07/05/24 04:08 Dose: 50 mg Documented By: RADHA Lactated Ringer's (Lr) 1,000 mls @ 100 mls/hr IVCONT .Q10H [facility] Last Admin: 07/05/24 08:30 Dose: 150 mls/hr Documented By: NIKOLE Vancomycin HCl 750 mg/ Sodium (Chloride) 265 mls @ 265 mls/hr IV Q24H [facility] Last Infusion: 07/05/24 09:31 Dose: Infused Documented By: NIKOLE Lactulose (Lactulose 20 Gm/30 Ml Solution) 20 gm PO TID [facility] Last Admin: 07/05/24 08:30 Dose: 20 gm Documented By: NIKOLE Lorazepam (Lorazepam 2 Mg/Ml Vial) 1 mg IVPUSH Q6H PRN PRN Reason: anxiety/restlessness Magnesium Hydroxide (Milk Of Magnesia 30 Ml Oral.Susp) 30 ml PO DAILY PRN PRN Reason: Constipation Last Admin: 07/05/24 04:09 Dose: 30 ml Documented By: RADHA Melatonin (Melatonin 3 Mg Tablet) 6 mg PO BEDTIME PRN PRN Reason: Insomnia Methadone HCl (Methadone Hcl 20 Mg/2 Ml Oral.Conc) 270 mg PO DAILY@0800 [facility] Last Admin: 07/05/24 08:30 Dose: 270 mg Documented By: NIKOLE Co-signed By: HOWARD Methocarbamol (Methocarbamol 500 Mg Tablet) 500 mg PO TID [facility] Pharmacy Consult (Consult Rx Vancomycin Dosing) 1 each MISCELLANE DAILY PRN PRN Reason: Consult order Sertraline HCl (Sertraline Hcl 50 Mg Tablet) 150 mg PO DAILY [facility] Last Admin: 07/05/24 08:29 Dose: 150 mg Documented By: NIKOLE Sodium Chloride (0.9 % Sodium Chloride Flush 3 Ml Syringe) 3 ml IVFLUSH QSHIFT [facility] Last Admin: 07/05/24 08:20 Dose: Not Given Documented By: NIKOLE Non-Admin Reason: IV Running Labs 07/05/24 07:09 07/05/24 07:09 Labs: Laboratory Results - last 24 hr 07/05/24 07/05/24 07/05/24 07:09 07:09 07:09 MCV 85.6 85.7 MCH 28.1 28.3 MCHC 32.8 RDW Plt Count MPV Immature Gran % (Auto) Neut % (Auto) Lymph % (Auto) [place] % (Auto) Eos % (Auto) Baso % (Auto) Lymph # (Auto) [place] # (Auto) Eos # (Auto) Baso # (Auto) Abs Immat Gran (auto) Absolute Neuts (auto) Absolute Nucleated RBC Nucleated RBC % (auto) Anion Gap Estim Creat Clear Calc Estimated GFR Random Glucose Calcium Total Bilirubin AST ALT Alkaline Phosphatase Total Protein Albumin Random Vancomycin 07/05/24 07/05/24 07/05/24 07:09 07:09 07:09 MCV MCH MCHC 33.0 RDW 14.5 14.6 Plt Count 145 L 145 L MPV 9.2 L Immature Gran % (Auto) Neut % (Auto) Lymph % (Auto) [place] % (Auto) Eos % (Auto) Baso % (Auto) Lymph # (Auto) [place] # (Auto) Eos # (Auto) Baso # (Auto) Abs Immat Gran (auto) Absolute Neuts (auto) Absolute Nucleated RBC Nucleated RBC % (auto) Anion Gap Estim Creat Clear Calc Estimated GFR Random Glucose Calcium Total Bilirubin AST ALT Alkaline Phosphatase Total Protein Albumin Random Vancomycin 07/05/24 07/05/24 07/05/24 07:09 07:09 07:09 MCV MCH MCHC RDW Plt Count MPV 9.7 Immature Gran % (Auto) 0.5 H Neut % (Auto) 77.4 H Lymph % (Auto) 11.9 L [place] % (Auto) 5.9 Eos % (Auto) 4.0 Baso % (Auto) 0.3 Lymph # (Auto) 1.5 Daggett # (Auto) 0.8 Eos # (Auto) 0.5 H Baso # (Auto) 0.0 Abs Immat Gran (auto) 0.07 H Absolute Neuts (auto) 10.0 H Absolute Nucleated RBC 0.000 0.000 Nucleated RBC % (auto) 0.0 0.0 Anion Gap 13 Estim Creat Clear Calc Estimated GFR Random Glucose Calcium Total Bilirubin AST ALT Alkaline Phosphatase Total Protein Albumin Random Vancomycin 07/05/24 07/05/24 07/05/24 07:09 07:09 07:09 MCV MCH MCHC RDW Plt Count MPV Immature Gran % (Auto) Neut % (Auto) Lymph % (Auto) [place] % (Auto) Eos % (Auto) Baso % (Auto) Lymph # (Auto) [place] # (Auto) Eos # (Auto) Baso # (Auto) Abs Immat Gran (auto) Absolute Neuts (auto) Absolute Nucleated RBC Nucleated RBC % (auto) Anion Gap 13 Estim Creat Clear Calc 40.8 41.0 Estimated GFR 24 24 Random Glucose 105 Calcium Total Bilirubin AST ALT Alkaline Phosphatase Total Protein Albumin Random Vancomycin 07/05/24 07/05/24 07:09 07:09 MCV MCH MCHC RDW Plt Count MPV Immature Gran % (Auto) Neut % (Auto) Lymph % (Auto) Daggett % (Auto) Eos % (Auto) Baso % (Auto) Lymph # (Auto) [place] # (Auto) Eos # (Auto) Baso # (Auto) Abs Immat Gran (auto) Absolute Neuts (auto) Absolute Nucleated RBC Nucleated RBC % (auto) Anion Gap Estim Creat Clear Calc Estimated GFR Random Glucose 104 Calcium 8.7 8.7 Total Bilirubin 0.3 AST 52 H ALT 76 H Alkaline Phosphatase 95 Total Protein 6.7 Albumin 3.3 L Random Vancomycin 14.5 L Microbiology Microbiology Results: Microbiology 07/04/24 03:20 Blood Culture - Preliminary Blood - Venous Prelim: GPC Gram Stain only 07/04/24 03:20 Blood Culture - Preliminary Blood - Venous No growth after 24 hours. Assessment and Plan (1) Polysubstance abuse: Status: Acute (2) Acute nausea with nonbilious vomiting: Status: Acute (3) Cellulitis: Status: Acute (4) BELINDA (acute kidney injury): Status: Acute Plan Elie Jenkins is a 39 y/o admitted with: # Positive blood culture Could be related to bacteremia vs contamination from skin On Vancomycin for now pending final and repeat cultures # Acute kidney injury Likely 2/2 Cocaine abuse Cr up to 2.9 continue IV fluids Avoid nephrotoxic agents Nephrology following Urine studies sent Follow BMP # Polysubstance abuse Tox screen positive for Cocaine, fentanyl and BDZ. Use Xylazine (snorting) Addiction medicine consult. ATC and PRN Clonidine , Atarax PRN Ativan and Dilaudid for withdrawal control # UTI PEnding cultures , Abx # infected chronic wounds with cellulitis improving IV Zosyn and vancomycin Blood cultures obtained follow vanco trough # Elevated LFTs. Likely secondary to chronic hep C. resolving # Worsening anemia, check Iron profile , B12 and folate, occult stool # Opiate use disorder. Continue methadone 270 mg PO daily. DVT prophylaxis: Lovenox Code status: Full Patient will need hospitalization overnight for BELINDA , cellulitis and UTI and management with IV antibiotic therapy and IV fluids along with treatment for withdrawal Quality Stroke Does the patient have a stroke diagnosis?: No VTE Prior VTE?: No VTE Risk Level:: Medical - moderate - high VTE Device Contraindication: Treatment Not Indicated VTE Drug Contraindication: N/A - Med Ordered
[2024-07-05 12:01] LABS: Iron 52 mcg/dL (45-160); Percent Iron Saturation 21 % (15-50); Total Iron Binding Capacity 247 mcg/dL (228-428); Unsaturated Iron Binding 195 ug/dL
[2024-07-05] MEDS: methocarbamoL 500 MG TABLET PO ×3 (12:23→20:51)
[2024-07-05] MEDS: Omeprazole 20 MG CAPSULE.DR PO ×2 (12:23→15:48)
[2024-07-05 15:48] VITALS: BP 131/85; PULSE 77; RESP 20; TEMP 36.3; O2SAT 97
[2024-07-05] MEDS: 0.9 % Sodium Chloride Flush 3 ML SYRINGE IVFLUSH (15:49)
[2024-07-05] MEDS: HYDROmorphone HCl 0.5 MG/0.5 ML SYRINGE IVPUSH ×2 (15:57→20:56)
[2024-07-05 20:00] VITALS: BP 139/80; PULSE 67; RESP 18; TEMP 36.5; O2SAT 98
[2024-07-05 23:14] LABS: Creatinine Urine 27.51 mg/dL
[2024-07-06] VITALS (8 sets, daily range): BP systolic 147–167; BP diastolic 91–101; PULSE 69–90; RESP 14–20; TEMP 36–36.9; O2SAT 96–98
[2024-07-06] MEDS: HYDROmorphone HCl 0.5 MG/0.5 ML SYRINGE IVPUSH ×3 (02:00→21:31)
[2024-07-06] MEDS: LORazepam 2 MG/ML VIAL 1 MG IVPUSH ×3 (02:00→15:31)
[2024-07-06] MEDS: Amphetamine Mixed Salts 20 MG TABLET PO ×3 (06:48→15:33)
[2024-07-06] MEDS: Omeprazole 20 MG CAPSULE.DR PO ×2 (06:48→15:31)
[2024-07-06] MEDS: Enoxaparin Sodium 40 MG/0.4 ML SYRINGE SUBCUT (07:58)
[2024-07-06] MEDS: methocarbamoL 500 MG TABLET PO ×3 (08:00→21:17)
[2024-07-06] MEDS: cloNIDine HCL 0.1 MG TABLET PO ×5 (08:00→21:17)
[2024-07-06] MEDS: Sertraline HCL 50 MG TABLET 150 MG PO (08:00)
[2024-07-06] MEDS: Lactulose 20 GM/30 ML SOLUTION PO ×3 (08:00→21:17)
[2024-07-06] MEDS: Docusate Sodium 100 MG CAPSULE PO ×2 (08:01→21:17)
[2024-07-06] MEDS: 0.9 % Sodium Chloride Flush 3 ML SYRINGE IVFLUSH ×3 (08:01→21:17)
[2024-07-06] MEDS: vancomycin HCL 750 MG in 0.9 % Sodium Chloride 250 ML 265 MG IV (08:02)
[2024-07-06 08:19] LABS: EOS Counted 3 CELLS; EOS QC POS YES; EOS Stain Quality OK YES; WBC, Counted 100 CELLS
[2024-07-06] MEDS: methADONE HCl 20 MG/2 ML ORAL.CONC 270 MG PO (09:13)
[2024-07-06] MEDS: ALPRAZolam 0.5 MG TABLET 2 MG PO ×2 (09:13→21:24)
--- NOTE | 2024-07-06 11:25 | HO.PM.IMPN ---
Subjective Subjective Date of Service: 07/06/24 Interval History: seen and evaluated this morning reporting withdrawal symptoms of generalized pain and nausea pending Creatinine tolerating diet Creatinine worse today erythema improving Review of Systems Review of Systems: Yes all other systems are reviewed and are negative Physical Exam Vital Signs: Vital Signs: Last Vital Signs Temp 97.5 F 07/06/24 07:28 Pulse 73 07/06/24 07:28 Resp 20 07/06/24 07:28 BP 147/95 H 07/06/24 07:28 Pulse Ox 97 07/06/24 07:28 O2 Del Method Room Air 07/06/24 07:28 BMI result Body Mass Index 26.3 Const: Other: Constitutional : Awake, interactive, in mild distress Neck : Normal inspection, Supple Cardiovascular : RRR, no JVP, no lower extremity edema Respiratory : good bilateral air entry, no crackles, wheezes or rhonchi Gastrointestinal: soft, lax, Normal bowel sounds, Non tender Skin : Warm, Dry, multiple injection pelletier with erythema improving in bilateral lower extremities Neurological : Alert & oriented x3, No focal deficit Objective Data Active Medications Acetaminophen (Acetaminophen 325 Mg Tablet) 975 mg PO Q6H PRN PRN Reason: Pain, Mild (Pain Scale 1-3), fever or headache Last Admin: 07/05/24 03:03 Dose: 975 mg Documented By: RADHA Alprazolam (Alprazolam 0.5 Mg Tablet) 2 mg PO BID PRN PRN Reason: anxiety Last Admin: 07/06/24 09:13 Dose: 2 mg Documented By: MAHI Amphetamine/Dextroamphetamine (Amphetamine Mixed Salts 20 Mg Tablet) 20 mg PO TID@0600,1200,1600 [facility] Last Admin: 07/06/24 06:48 Dose: 20 mg Documented By: RADHA Calcium Carbonate (Calcium Carbonate 750 Mg Tab.Chew) 750 mg PO Q4H PRN PRN Reason: Heartburn Clonidine HCl (Clonidine Hcl 0.1 Mg Tablet) 0.1 mg PO TID [facility]; Protocol Last Admin: 07/05/24 20:51 Dose: 0.1 mg Documented By: CORDELL Clonidine HCl (Clonidine Hcl 0.1 Mg Tablet) 0.1 mg PO TID PRN; Protocol PRN Reason: Withdrawal symptoms Last Admin: 07/06/24 08:03 Dose: 0.1 mg Documented By: MAHI Docusate Sodium (Docusate Sodium 100 Mg Capsule) 100 mg PO BID [facility] Last Admin: 07/06/24 08:01 Dose: 100 mg Documented By: MAHI Enoxaparin Sodium (Enoxaparin Sodium 40 Mg/0.4 Ml Syringe) 40 mg SUBCUT Q24H [facility] Last Admin: 07/06/24 07:58 Dose: 40 mg Documented By: MAHI Hydromorphone HCl (Hydromorphone Hcl 0.5 Mg/0.5 Ml Syringe) 0.5 mg IVPUSH Q4H PRN; Protocol PRN Reason: Opiate Withdrawal Last Admin: 07/06/24 02:00 Dose: 0.5 mg Documented By: RADHA Hydroxyzine HCl (Hydroxyzine Hcl 50 Mg Tablet) 50 mg PO Q6H PRN PRN Reason: anxiety/restlessness Last Admin: 07/05/24 20:56 Dose: 50 mg Documented By: CORDELL Vancomycin HCl 750 mg/ Sodium (Chloride) 265 mls @ 265 mls/hr IV Q24H [facility] Last Infusion: 07/06/24 09:08 Dose: Infused Documented By: MAHI Lactulose (Lactulose 20 Gm/30 Ml Solution) 20 gm PO TID [facility] Last Admin: 07/06/24 08:00 Dose: 20 gm Documented By: MAHI Lorazepam (Lorazepam 2 Mg/Ml Vial) 1 mg IVPUSH Q6H PRN PRN Reason: anxiety/restlessness Last Admin: 07/06/24 02:00 Dose: 1 mg Documented By: RADHA Magnesium Hydroxide (Milk Of Magnesia 30 Ml Oral.Susp) 30 ml PO DAILY PRN PRN Reason: Constipation Last Admin: 07/05/24 04:09 Dose: 30 ml Documented By: RADHA Melatonin (Melatonin 3 Mg Tablet) 6 mg PO BEDTIME PRN PRN Reason: Insomnia Methadone HCl (Methadone Hcl 20 Mg/2 Ml Oral.Conc) 270 mg PO DAILY@0800 [facility] Last Admin: 07/06/24 09:13 Dose: 270 mg Documented By: MAHI Co-signed By: EMBER Methocarbamol (Methocarbamol 500 Mg Tablet) 500 mg PO TID [facility] Last Admin: 07/06/24 08:00 Dose: 500 mg Documented By: MAHI Omeprazole (Omeprazole 20 Mg Capsule.) 20 mg PO BID@0630,1630 [facility] Last Admin: 07/06/24 06:48 Dose: 20 mg Documented By: RADHA Pharmacy Consult (Consult Rx Vancomycin Dosing) 1 each MISCELLANE DAILY PRN PRN Reason: Consult order Sertraline HCl (Sertraline Hcl 50 Mg Tablet) 150 mg PO DAILY [facility] Last Admin: 07/06/24 08:00 Dose: 150 mg Documented By: MAHI Sodium Chloride (0.9 % Sodium Chloride Flush 3 Ml Syringe) 3 ml IVFLUSH QSHIFT [facility] Last Admin: 07/06/24 08:01 Dose: 3 ml Documented By: MAHI Labs 07/05/24 07:09 07/05/24 07:09 Labs: Laboratory Results - last 24 hr 07/05/24 07/05/24 07:09 18:00 Iron 52 TIBC 247 % Saturation 21 Unsat Iron Binding 195 Urine Eosinophils % 3.0 Ur Random Sodium 38.0 Urine Creatinine 27.51 Microbiology Microbiology Results: Microbiology 07/04/24 03:20 Blood Culture - Final Blood - Venous Coag negative Staphylococcus 07/04/24 03:20 Blood Culture - Preliminary Blood - Venous No growth after 48 hours. 07/04/24 Unknown Urine Culture - Final Urine clean catch - Clean Catch Midstream No growth. 07/05/24 08:03 Blood Culture - Final Blood - Venous Assessment and Plan (1) Polysubstance abuse: Status: Acute (2) Acute nausea with nonbilious vomiting: Status: Acute (3) BELINDA (acute kidney injury): Status: Acute (4) Cellulitis: Status: Acute Plan Elie Jenkins is a 39 y/o admitted with: # Positive blood culture contamination from skin. CoAg Neg staph DC Vancomycin # Acute kidney injury Likely 2/2 Cocaine abuse Cr up to 2.9, pending repeat continue IV fluids Avoid nephrotoxic agents Nephrology following Urine studies sent Follow BMP # Polysubstance abuse Tox screen positive for Cocaine, fentanyl and BDZ. Use Xylazine (snorting) Addiction medicine consult. ATC and PRN Clonidine , Atarax PRN Ativan and Dilaudid for withdrawal control # UTI Neg Cx. dc abx # infected chronic wounds with cellulitis DC IV Abx and Change to PO Doxycycline # Elevated LFTs. Likely secondary to chronic hep C. resolving # Worsening anemia, check Iron profile , B12 and folate, occult stool # Opiate use disorder. Continue methadone 270 mg PO daily. DVT prophylaxis: Lovenox Code status: Full Patient will need hospitalization overnight for BELINDA , cellulitis and UTI and management with IV fluids along with treatment for withdrawal and nephrology following Quality Stroke Does the patient have a stroke diagnosis?: No VTE Prior VTE?: No VTE Risk Level:: Medical - moderate - high VTE Device Contraindication: Treatment Not Indicated VTE Drug Contraindication: N/A - Med Ordered
[2024-07-06] MEDS: Doxycycline Monohydrate 100 MG CAPSULE PO ×2 (11:58→23:31)
[2024-07-06 12:59] LABS: Anion Gap 16 (12-20); Blood Urea Nitrogen 34 mg/dL (9-16); Calcium 8.3 mg/dL (8.4-10.2); Carbon Dioxide 17 mmol/L (22-29); Chloride 110 mmol/L (96-108); Creatinine Clr Calc Pharmacy 37.2; Estimated Glomerular Filt Rate 22; Glucose Random 111 mg/dL (60-115); Potassium 4.7 mmol/L (3.3-5.1); Sodium 138 mmol/L (135-145)
[2024-07-06] MEDS: hydrOXYzine HCL 50 MG TABLET PO (23:35)
[2024-07-07 04:00] VITALS: BP 177/103; PULSE 83; RESP 17; TEMP 36.5; O2SAT 98
[2024-07-07] MEDS: HYDROmorphone HCl 0.5 MG/0.5 ML SYRINGE IVPUSH ×3 (04:04→20:18)
[2024-07-07] MEDS: LORazepam 2 MG/ML VIAL 1 MG IVPUSH ×2 (04:05→15:02)
[2024-07-07] MEDS: Omeprazole 20 MG CAPSULE.DR PO ×2 (05:38→17:48)
[2024-07-07] MEDS: Amphetamine Mixed Salts 20 MG TABLET PO ×3 (05:38→17:48)
[2024-07-07 06:25] LABS: Hematocrit 29.2 % (42.0-52.0); Hemoglobin 9.7 g/dl (14.0-18.0); Mean Corpuscular HGB Conc 33.2 g/dl (31.0-36.0); Mean Corpuscular Volume 84.1 fL (80.0-98.0); PLT CLUMP 1; Platelet Count 123 X10*3/uL (160-400); Red Blood Count 3.47 X10*6/uL (4.60-5.80); Red Cell Distribution Width 14.2 % (11.0-16.0); White Blood Count 7.1 X10*3/uL (4.8-10.8)
[2024-07-07 06:36] LABS: Anion Gap 13 (12-20); Blood Urea Nitrogen 33 mg/dL (9-16); Calcium 8.5 mg/dL (8.4-10.2); Carbon Dioxide 21 mmol/L (22-29); Chloride 110 mmol/L (96-108); Creatinine Clr Calc Pharmacy 35.3; Estimated Glomerular Filt Rate 21; Glucose Random 104 mg/dL (60-115); Potassium 4.1 mmol/L (3.3-5.1); Sodium 140 mmol/L (135-145)
[2024-07-07 06:59] LABS: HBS Num1 > 1000.00 mIU/mL (0-7.99); HBc Num1 0.09 S/CO (0.00-0.79); HIV AB/AG Nonreactive (Nonreactive); HIV Num 1 0.05 S/CO (0.00-0.99); Hepatitis A Antibody IgM 0.55 Index (0-0.79); Hepatitis B Core Antibody Nonreactive (Nonreactive); Hepatitis B Surface Antigen Negative (Negative); ~Hepatitis A Antibody IgM Nonreactive (Nonreactive); ~Hepatitis B Surface Antibody REACTIVE (Nonreactive); ~Hepatitis C Antibody Reactive (Nonreactive)
[2024-07-07 08:00] VITALS: BP 136/76; PULSE 67; RESP 18; TEMP 36.8; O2SAT 98
[2024-07-07] MEDS: methocarbamoL 500 MG TABLET PO ×3 (08:28→20:18)
[2024-07-07] MEDS: Enoxaparin Sodium 40 MG/0.4 ML SYRINGE SUBCUT (08:28)
[2024-07-07] MEDS: Lactulose 20 GM/30 ML SOLUTION PO ×3 (08:28→20:18)
[2024-07-07] MEDS: cloNIDine HCL 0.1 MG TABLET PO ×3 (08:29→20:18)
[2024-07-07] MEDS: Docusate Sodium 100 MG CAPSULE PO ×2 (08:29→20:18)
[2024-07-07] MEDS: Sertraline HCL 50 MG TABLET 150 MG PO (08:29)
[2024-07-07] MEDS: ALPRAZolam 0.5 MG TABLET 2 MG PO ×2 (08:35→20:32)
[2024-07-07] MEDS: methADONE HCl 20 MG/2 ML ORAL.CONC 270 MG PO (09:33)
--- NOTE | 2024-07-07 09:35 | PM.CNNEP ---
History of Present Illness Reason for Consult Consult date: 07/07/24 Chief Complaint Chief complaint: acute kidney injury History of Present Illness Narrative: Pt is a 39 y/o male with a medical history of opiate use disorder and IVDU, chronic hep C, chronic xyaliine wounds. Arrived on 07/04 with malaise, nausea/vomiting, profound sweating and abdominal pain. was found to have a UTI and chronic infected wounds, elevated LDTs, worsening anemia and BELINDA Nephrology consulted 07/04 urine tox screen + for opiates, methadone, fentanyl, benzodiazepines, cocaine Creatinine 1.99 on 07/04, has been trending up, today 3.35 (prior to admission was 1.33 in March) BUN 33 Urine with blood, protein (moderate), WBCs, pt does have UTI Review of Systems Constitutional: Denies anorexia, Denies fever(s) and Denies weakness Cardiovascular: Denies no additional cardiovascular complaints and Denies dyspnea Respiratory: Reports no additional respiratory complaints and Denies dyspnea Gastrointestinal: Denies diarrhea Genitourinary: Denies hematuria Musculoskeletal: Denies tingling Skin/Breast: Denies rash Denies focal weakness, Denies tingling, Denies tremor(s) and Denies weakness PMFSH Past Medical History Medical History Wounds, multiple Social History Social History Household Members: Family Housing: House Do you presently have visiting nurse or other home services: No Patient Tobacco Use Status: Current everyday Tobacco user Tobacco use type: Smokeless Tobacco Cigarettes Per Day: 2 e-Cigarette/Vaping Use: Never Used Second Hand Smoke Exposure: No Substance Use Type: Crack/Cocaine, Heroin, Marijuana and Opiates Advance Directives Date on File: 04/16/24 service: No Meds Allergies Allergy/AdvReac Type Severity Reaction Status Date / Time No Known Allergies Allergy Verified 07/04/24 00:25 Active Medications: Current Medications Acetaminophen (Acetaminophen 325 Mg Tablet) 975 mg PO Q6H PRN PRN Reason: Pain, Mild (Pain Scale 1-3), fever or headache Last Admin: 07/05/24 03:03 Dose: 975 mg Alprazolam (Alprazolam 0.5 Mg Tablet) 2 mg PO BID PRN PRN Reason: anxiety Last Admin: 07/07/24 08:35 Dose: 2 mg Amphetamine/Dextroamphetamine (Amphetamine Mixed Salts 20 Mg Tablet) 20 mg PO TID@0600,1200,1600 [facility] Last Admin: 07/07/24 05:38 Dose: 20 mg Calcium Carbonate (Calcium Carbonate 750 Mg Tab.Chew) 750 mg PO Q4H PRN PRN Reason: Heartburn Clonidine HCl (Clonidine Hcl 0.1 Mg Tablet) 0.1 mg PO TID [facility]; Protocol Last Admin: 07/07/24 08:29 Dose: 0.1 mg Clonidine HCl (Clonidine Hcl 0.1 Mg Tablet) 0.1 mg PO TID PRN; Protocol PRN Reason: Withdrawal symptoms Last Admin: 07/06/24 08:03 Dose: 0.1 mg Docusate Sodium (Docusate Sodium 100 Mg Capsule) 100 mg PO BID [facility] Last Admin: 07/07/24 08:29 Dose: 100 mg Doxycycline Monohydrate (Doxycycline Monohydrate 100 Mg Capsule) 100 mg PO Q12H [facility] Last Admin: 07/06/24 23:31 Dose: 100 mg Enoxaparin Sodium (Enoxaparin Sodium 40 Mg/0.4 Ml Syringe) 40 mg SUBCUT Q24H [facility] Last Admin: 07/07/24 08:28 Dose: 40 mg Hydromorphone HCl (Hydromorphone Hcl 0.5 Mg/0.5 Ml Syringe) 0.5 mg IVPUSH Q4H PRN; Protocol PRN Reason: Opiate Withdrawal Last Admin: 07/07/24 04:04 Dose: 0.5 mg Hydroxyzine HCl (Hydroxyzine Hcl 50 Mg Tablet) 50 mg PO Q6H PRN PRN Reason: anxiety/restlessness Last Admin: 07/06/24 23:35 Dose: 50 mg Lactulose (Lactulose 20 Gm/30 Ml Solution) 20 gm PO TID [facility] Last Admin: 07/07/24 08:28 Dose: 20 gm Lorazepam (Lorazepam 2 Mg/Ml Vial) 1 mg IVPUSH Q6H PRN PRN Reason: anxiety/restlessness Last Admin: 07/07/24 04:05 Dose: 1 mg Magnesium Hydroxide (Milk Of Magnesia 30 Ml Oral.Susp) 30 ml PO DAILY PRN PRN Reason: Constipation Last Admin: 07/05/24 04:09 Dose: 30 ml Melatonin (Melatonin 3 Mg Tablet) 6 mg PO BEDTIME PRN PRN Reason: Insomnia Methadone HCl (Methadone Hcl 20 Mg/2 Ml Oral.Conc) 270 mg PO DAILY@0800 [facility] Last Admin: 07/06/24 09:13 Dose: 270 mg Methocarbamol (Methocarbamol 500 Mg Tablet) 500 mg PO TID [facility] Last Admin: 07/07/24 08:28 Dose: 500 mg Omeprazole (Omeprazole 20 Mg Capsule.Dr) 20 mg PO BID@0630,1630 [facility] Last Admin: 07/07/24 05:38 Dose: 20 mg Sertraline HCl (Sertraline Hcl 50 Mg Tablet) 150 mg PO DAILY [facility] Last Admin: 07/07/24 08:29 Dose: 150 mg Sodium Chloride (0.9 % Sodium Chloride Flush 3 Ml Syringe) 3 ml IVFLUSH QSHIFT [facility] Last Admin: 07/06/24 21:17 Dose: 3 ml Home Medications ?Medication ?Instructions ?Recorded ?Confirmed ?Last Taken ?Type alprazolam 2 mg tablet 2 mg PO BID PRN anxiety 04/12/24 07/04/24 07/03/24 History clonidine HCl 0.2 mg tablet 0.2 mg PO TID 04/12/24 07/04/24 07/03/24 History dextroamphetamine-amphetamine 20 1 tab PO TID@0600,1200,1600 04/12/24 07/04/24 07/03/24 History mg tablet methadone 10 mg/mL oral 270 mg PO DAILY 04/12/24 04/12/24 04/11/24 History concentrate (Methadone Intensol) sertraline 100 mg tablet 150 mg PO DAILY 04/12/24 07/04/24 07/03/24 History acetaminophen 325 mg tablet 650 mg PO QID PRN Headache 07/04/24 07/04/24 Unknown History Physical Exam Vital Signs: Last Vital Signs Temp 98.2 F 07/07/24 08:00 Pulse 67 07/07/24 08:00 Resp 18 07/07/24 08:00 BP 136/76 07/07/24 08:00 Pulse Ox 98 07/07/24 08:00 O2 Del Method Room Air 07/07/24 08:00 BMI result Body Mass Index 26.3 Const General: comfortable and no acute distress Orientation/consciousness: oriented to person, oriented to place and oriented to time Neck Neck: Yes no JVD Resp Effort & Inspection: able to speak in complete sentences Auscultation: clear to auscultation bilaterally Cardio Jugular venous distension: no JVD Rate: regular rate Rhythm: regular rhythm Heart sounds: S1 normal heart sound present and S2 normal heart sound present GI Palpation (GI): Soft to palpation Rectal Exam - Male: No tenderness General: Yes no CVA tenderness Back/Spine/Pelvis Back: no CVA tenderness Skin Rashes: no rashes Neuro General: oriented to person, oriented to place and oriented to time Extrem General: Yes normal to inspection, No edema and No pedal edema Results Lab Results 07/07/24 05:56 07/07/24 05:59 Lab results: Chemistry 07/05/24 07/05/24 07/05/24 07:09 07:09 07:09 Sodium 139 140 Potassium 4.5 4.2 Carbon Dioxide 24 BUN Creatinine Calcium 07/05/24 07/05/24 07/05/24 07:09 07:09 07:09 Sodium Potassium Carbon Dioxide 25 BUN 36 H 36 H Creatinine 2.90 H 2.89 H Calcium 8.7 07/05/24 07/06/24 07/07/24 07:09 12:00 05:59 Sodium 138 140 Potassium 4.7 4.1 Carbon Dioxide 17 L 21 L BUN 34 H 33 H Creatinine 3.18 H 3.35 H Calcium 8.7 8.3 L 8.5 Hematology 07/05/24 07/05/24 07/05/24 07:09 07:09 07:09 WBC 13.0 H 13.0 H Hgb 10.5 L 10.5 L Plt Count 145 L 07/05/24 07/07/24 07:09 05:56 WBC 7.1 Hgb 9.7 L Plt Count 145 L 123 L Urine Studies 07/05/24 18:00 Urine Creatinine 27.51 Assessment and Plan (1) Polysubstance abuse: Status: Acute (2) BELINDA (acute kidney injury): Status: Acute (3) Cellulitis: Qualifiers: Laterality: unspecified laterality Site of cellulitis: extremity Site of cellulitis of extremity: lower extremity Qualified Code(s): L03.119 - Cellulitis of unspecified part of limb Status: Acute (4) UTI (urinary tract infection): Qualifiers: Hematuria presence: with hematuria Urinary tract infection type: acute cystitis Qualified Code(s): N30.01 - Acute cystitis with hematuria Status: Acute Plan BELINDA likely from tubular injury due to polysubstance use (renal vasoconstriction 2/2 cocaine use), as well as infection from UTI recommend continuing supportive care, refrain from illicit drug use continue to monitor renal function, avoid nephrotoxic substances, treatment of UTI Discussed with Dr Park Procedures Date of Service Date of Service: 07/07/24
[2024-07-07] MEDS: 0.9 % Sodium Chloride Flush 3 ML SYRINGE IVFLUSH (09:39)
--- NOTE | 2024-07-07 11:33 | MHC.CM.PN ---
Per MD rounds patient not medically cleared for dc. Awaiting nephro. DC plan remains home self care, resume outpatient services. CM will continue to follow.
[2024-07-07 11:37] LABS: Folate 3.7 ng/mL (> or = 4.0); Vitamin B12 741 pg/mL (200-900)
[2024-07-07] MEDS: Doxycycline Monohydrate 100 MG CAPSULE PO ×2 (11:47→23:33)
--- NOTE | 2024-07-07 12:33 | HO.WOUND ---
Wound Consult: Initial 39yr old male admitted to [facility] on 07/04/24 - see H&P for detailed history. Wound consult placed for chronic bilateral arm and lower leg wounds. Patient treats at outpt wound clinic at [facility] [place] for his wounds. Arrival to bedside patient reports wound are overall improving and he uses Triad to wound beds with dry dressings. Dressings removed wound beds are clean and stable no erythema to the periwounds noted. Would recommend given overall improvement for patient to continue with Triad application. Left Arm (Left hand swelling noted - tt to provider to notify - educated patient to limit tight wraps as was on prior and to elevate left arm on pillows. ) Left Leg Right Lower Leg Etiology: ??Resolving suspected xylazine sites Measurements:various stages of healing and sizes noted - measuring less than 1cm Wound Bed: various stages of presenation - red dry or red moist wound beds - no eschar noted - no slough noted Drainage / Odor: none noted Edges: ? epibole and irregular Cristal wound: intact ? No Induration, Fluctuance or Warmth noted Pain: minimal pain to left forearm Goals of Treatment: ? continue with Triad and cover dressing - patient to continue to follow up with [facility] outpt wound clinic. Recommendations: 1. Left arm , Bilateral Lower Legs - Cleanse with routine showering or NS moist gauze. Apply thin layer of triad to wound bed cover with dry gauze dressing. Change every 2 - 3 days and PRN. Re-consult wound care Nurse for wound deterioration or wound changes.
--- NOTE | 2024-07-07 13:39 | P.PNIM_ITS ---
Subjective Subjective Date of Service: 07/07/24 Interval History: seen and evaluated this morning improved withdrawal symptoms Creatinine worsening tolerating diet erythema improving Review of Systems Review of Systems: Yes all other systems are reviewed and are negative Physical Exam 2 Vital Signs: Vital Signs: Last Vital Signs Temp 98.2 F 07/07/24 08:00 Pulse 67 07/07/24 08:00 Resp 18 07/07/24 08:00 BP 136/76 07/07/24 08:00 Pulse Ox 98 07/07/24 08:00 O2 Del Method Room Air 07/07/24 08:00 BMI result Body Mass Index 26.3 Const: Other: Constitutional : Awake, interactive, in mild distress Neck : Normal inspection, Supple Cardiovascular : RRR, no JVP, no lower extremity edema Respiratory : good bilateral air entry, no crackles, wheezes or rhonchi Gastrointestinal: soft, lax, Normal bowel sounds, Non tender Skin : Warm, Dry, multiple injection pelletier with erythema improving in bilateral lower extremities Neurological : Alert & oriented x3, No focal deficit Objective Data Active Medications Acetaminophen (Acetaminophen 325 Mg Tablet) 975 mg PO Q6H PRN PRN Reason: Pain, Mild (Pain Scale 1-3), fever or headache Last Admin: 07/05/24 03:03 Dose: 975 mg Documented By: RADHA Alprazolam (Alprazolam 0.5 Mg Tablet) 2 mg PO BID PRN PRN Reason: anxiety Last Admin: 07/07/24 08:35 Dose: 2 mg Documented By: ALVARO Amphetamine/Dextroamphetamine (Amphetamine Mixed Salts 20 Mg Tablet) 20 mg PO TID@0600,1200,1600 [facility] Last Admin: 07/07/24 11:47 Dose: 20 mg Documented By: ALVARO Calcium Carbonate (Calcium Carbonate 750 Mg Tab.Chew) 750 mg PO Q4H PRN PRN Reason: Heartburn Clonidine HCl (Clonidine Hcl 0.1 Mg Tablet) 0.1 mg PO TID [facility]; Protocol Last Admin: 07/07/24 08:29 Dose: 0.1 mg Documented By: ALVARO Clonidine HCl (Clonidine Hcl 0.1 Mg Tablet) 0.1 mg PO TID PRN; Protocol PRN Reason: Withdrawal symptoms Last Admin: 07/06/24 08:03 Dose: 0.1 mg Documented By: MAHI Docusate Sodium (Docusate Sodium 100 Mg Capsule) 100 mg PO BID [facility] Last Admin: 07/07/24 08:29 Dose: 100 mg Documented By: ALVARO Doxycycline Monohydrate (Doxycycline Monohydrate 100 Mg Capsule) 100 mg PO Q12H [facility] Last Admin: 07/07/24 11:47 Dose: 100 mg Documented By: ALVARO Enoxaparin Sodium (Enoxaparin Sodium 40 Mg/0.4 Ml Syringe) 40 mg SUBCUT Q24H [facility] Last Admin: 07/07/24 08:28 Dose: 40 mg Documented By: ALVARO Hydromorphone HCl (Hydromorphone Hcl 0.5 Mg/0.5 Ml Syringe) 0.5 mg IVPUSH Q4H PRN; Protocol PRN Reason: Opiate Withdrawal Last Admin: 07/07/24 04:04 Dose: 0.5 mg Documented By: RAMIN Hydroxyzine HCl (Hydroxyzine Hcl 50 Mg Tablet) 50 mg PO Q6H PRN PRN Reason: anxiety/restlessness Last Admin: 07/06/24 23:35 Dose: 50 mg Documented By: RAMIN Lactulose (Lactulose 20 Gm/30 Ml Solution) 20 gm PO TID [facility] Last Admin: 07/07/24 08:28 Dose: 20 gm Documented By: ALVARO Lorazepam (Lorazepam 2 Mg/Ml Vial) 1 mg IVPUSH Q6H PRN PRN Reason: anxiety/restlessness Last Admin: 07/07/24 04:05 Dose: 1 mg Documented By: RAMIN Magnesium Hydroxide (Milk Of Magnesia 30 Ml Oral.Susp) 30 ml PO DAILY PRN PRN Reason: Constipation Last Admin: 07/05/24 04:09 Dose: 30 ml Documented By: RADHA Melatonin (Melatonin 3 Mg Tablet) 6 mg PO BEDTIME PRN PRN Reason: Insomnia Methadone HCl (Methadone Hcl 20 Mg/2 Ml Oral.Conc) 270 mg PO DAILY@0800 [facility] Last Admin: 07/07/24 09:33 Dose: 270 mg Documented By: ALVARO Co-signed By: SHAYNA Methocarbamol (Methocarbamol 500 Mg Tablet) 500 mg PO TID [facility] Last Admin: 07/07/24 08:28 Dose: 500 mg Documented By: ALVARO Omeprazole (Omeprazole 20 Mg Capsule.) 20 mg PO BID@0630,9590 [facility] Last Admin: 07/07/24 05:38 Dose: 20 mg Documented By: ODRISTomasz Sertraline HCl (Sertraline Hcl 50 Mg Tablet) 150 mg PO DAILY [facility] Last Admin: 07/07/24 08:29 Dose: 150 mg Documented By: ALVARO Sodium Chloride (0.9 % Sodium Chloride Flush 3 Ml Syringe) 3 ml IVFLUSH QSHIFT [facility] Last Admin: 07/07/24 09:39 Dose: 3 ml Documented By: ALVARO Labs 07/07/24 05:56 07/07/24 05:59 Labs: Laboratory Results - last 24 hr 07/07/24 07/07/24 07/07/24 05:56 05:59 06:00 MCV 84.1 MCH 28.0 MCHC 33.2 RDW 14.2 Plt Count 123 L MPV 10.0 Absolute Nucleated RBC 0.000 Nucleated RBC % (auto) 0.0 Anion Gap 13 Estim Creat Clear Calc 35.3 Estimated GFR 21 Random Glucose 104 Calcium 8.5 Vitamin B12 Folate Hepatitis A IgM Ab Nonreactive Hep Bs Antigen Negative Hep Bs Antibody REACTIVE Hep B Core Total Ab Nonreactive Hepatitis C Ab (EIA) Reactive H HIV 1&2 Ab/P24 Ag 4thGn Nonreactive 07/07/24 10:23 MCV MCH MCHC RDW Plt Count MPV Absolute Nucleated RBC Nucleated RBC % (auto) Anion Gap Estim Creat Clear Calc Estimated GFR Random Glucose Calcium Vitamin B12 741 Folate 3.7 L Hepatitis A IgM Ab Hep Bs Antigen Hep Bs Antibody Hep B Core Total Ab Hepatitis C Ab (EIA) HIV 1&2 Ab/P24 Ag 4thGn Microbiology Microbiology Results: Microbiology 07/05/24 09:25 Blood Culture - Preliminary Blood - Venous No growth after 48 hours. Assessment and Plan (1) Polysubstance abuse: Status: Acute (2) Acute nausea with nonbilious vomiting: Status: Acute (3) Cellulitis: Status: Acute (4) BELINDA (acute kidney injury): Status: Acute Plan Elie Jenkins is a 39 y/o admitted with: # Positive blood culture contamination from skin. CoAg Neg staph DC Vancomycin # Acute kidney injury Likely 2/2 Cocaine abuse Cr up to 3.2 continue IV fluids Avoid nephrotoxic agents Nephrology following Urine studies sent Follow BMP # Polysubstance abuse Tox screen positive for Cocaine, fentanyl and BDZ. Use Xylazine (snorting) Addiction medicine consult. ATC and PRN Clonidine , Atarax PRN Ativan and Dilaudid for withdrawal control # Bacteruria Neg Cx. dc abx # infected chronic wounds with cellulitis DC IV Abx and Change to PO Doxycycline # Elevated LFTs. Likely secondary to chronic hep C. resolving # Worsening anemia, check Iron profile , B12 and folate, occult stool # Opiate use disorder. Continue methadone 270 mg PO daily. DVT prophylaxis: Lovenox Code status: Full Patient will need hospitalization overnight for BELINDA , cellulitis and management with IV fluids along with treatment for withdrawal and nephrology following Quality Stroke Does the patient have a stroke diagnosis?: No VTE Prior VTE?: No VTE Risk Level:: Medical - moderate - high VTE Device Contraindication: Treatment Not Indicated VTE Drug Contraindication: N/A - Med Ordered
[2024-07-07] MEDS: hydrOXYzine HCL 50 MG TABLET PO (15:01)
[2024-07-07] MEDS: 0.9 % Sodium Chloride 1,000 ML 100 ML IVCONT ×2 (15:07→23:34)
[2024-07-07 16:13] VITALS: BP 139/79; PULSE 65; RESP 12; TEMP 36.4; O2SAT 94
[2024-07-07 18:04] LABS: Total Protein Urine Random 20 mg/dL (<12)
[2024-07-07 19:33] VITALS: BP 170/98; PULSE 75; RESP 18; TEMP 36.7; O2SAT 96
[2024-07-07 20:18] VITALS: BP 170/98
[2024-07-08] MEDS: LORazepam 2 MG/ML VIAL 1 MG IVPUSH ×2 (00:01→11:01)
[2024-07-08] MEDS: 0.9 % Sodium Chloride Flush 3 ML SYRINGE IVFLUSH ×2 (00:04→07:26)
[2024-07-08 00:52] VITALS: BP 174/96
--- NOTE | 2024-07-08 00:53 | PC.NURSE ---
Pts BP elevated at 170/98 clonidine given at 2100, with no effect, BP still at 174/[address] Love made aware, and ordered once order of hydralazine IV
[2024-07-08 01:04] VITALS: BP 174/96
[2024-07-08] MEDS: hydrALAZINE HCl 20 MG/ML VIAL 10 MG IVPUSH (01:04)
[2024-07-08 01:22] VITALS: BP 170/80; PULSE 62; RESP 17; TEMP 36.8; O2SAT 95
[2024-07-08] MEDS: Omeprazole 20 MG CAPSULE.DR PO (05:33)
[2024-07-08 05:38] VITALS: BP 170/84
[2024-07-08 06:20] LABS: Anion Gap 14 (12-20); Blood Urea Nitrogen 35 mg/dL (9-16); Calcium 8.9 mg/dL (8.4-10.2); Carbon Dioxide 23 mmol/L (22-29); Chloride 109 mmol/L (96-108); Creatinine Clr Calc Pharmacy 35.3; Estimated Glomerular Filt Rate 21; Glucose Random 85 mg/dL (60-115); Potassium 3.9 mmol/L (3.3-5.1); Sodium 142 mmol/L (135-145)
[2024-07-08] MEDS: Amphetamine Mixed Salts 20 MG TABLET PO ×2 (06:24→11:02)
[2024-07-08] MEDS: HYDROmorphone HCl 0.5 MG/0.5 ML SYRINGE IVPUSH ×2 (07:22→11:26)
[2024-07-08] MEDS: Acetaminophen 325 MG TABLET 975 MG PO (07:24)
[2024-07-08] MEDS: hydrOXYzine HCL 50 MG TABLET PO (07:24)
[2024-07-08] MEDS: cloNIDine HCL 0.1 MG TABLET PO (07:24)
[2024-07-08 07:59] VITALS: BP 146/80; PULSE 51; RESP 16; TEMP 37.1; O2SAT 98
[2024-07-08] MEDS: methADONE HCl 20 MG/2 ML ORAL.CONC 270 MG PO (09:26)
[2024-07-08] MEDS: Enoxaparin Sodium 40 MG/0.4 ML SYRINGE SUBCUT (09:31)
[2024-07-08] MEDS: Lactulose 20 GM/30 ML SOLUTION PO (09:31)
[2024-07-08] MEDS: Sertraline HCL 50 MG TABLET 150 MG PO (09:31)
[2024-07-08] MEDS: methocarbamoL 500 MG TABLET PO (09:32)
[2024-07-08] MEDS: Docusate Sodium 100 MG CAPSULE PO (09:32)
[2024-07-08] MEDS: amLODIPine Besylate 5 MG TABLET PO (09:32)
[2024-07-08] MEDS: ALPRAZolam 0.5 MG TABLET 2 MG PO (09:42)
--- NOTE | 2024-07-08 10:38 | MHC.CM.PN ---
Per MD rounds patient medically cleared for dc home self care. Will resume outpatient services. Father will transport home. RN aware.
--- NOTE | 2024-07-08 10:57 | P.PNNP_ITS ---
Subjective Subjective Date of Service: 07/08/24 Interval history: Pt is a 39 y/o male with a medical history of opiate use disorder and IVDU, chronic hep C, chronic xyaliine wounds. Arrived on 07/04 with malaise, nausea/vomiting, profound sweating and abdominal pain. was found to have a UTI and chronic infected wounds, elevated LDTs, worsening anemia and BELINDA Nephrology consulted 07/04 urine tox screen + for opiates, methadone, fentanyl, benzodiazepines, cocaine Creatinine 1.99 on 07/04, has been trending up, though has plateaued (prior to admission was 1.33 in March) BUN 33 Urine with blood, protein (moderate), WBCs, pt does have UTI for which he has received abx he reports he is urinating regularly/comfortably denies flank pain reports breathing is comfortable, denies chest pain denies other concerns Physical Exam 2 Vital Signs: Vital Signs: Last Vital Signs Temp 98.8 F 07/08/24 07:59 Pulse 51 07/08/24 07:59 Resp 16 07/08/24 07:59 BP 146/80 H 07/08/24 07:59 Pulse Ox 98 07/08/24 07:59 O2 Del Method Room Air 07/08/24 07:59 BMI result Body Mass Index 26.3 Const: General: comfortable and no acute distress O rientation/consciousness: oriented to person, oriented to place and oriented to time Neck: Neck: Yes no JVD Resp: Effort & Inspection: able to speak in complete sentences A uscultation: clear to auscultation bilaterally Cardio: Jugular venous distension: no JVD Rate: regular rate Rhythm: r egular rhythm Heart sounds: S1 normal heart sound present and S2 normal heart sound present GI: Palpation (GI): Soft to palpation Rectal Exam - Male: No tenderness : General: Yes no CVA tenderness Back/Spine/Pelvis: Back: no CVA tenderness Skin: Rashes: no rashes Neuro: General: oriented to person, oriented to place and oriented to time Extrem: General: Yes normal to inspection, No edema and No pedal edema Objective Data Labs 07/07/24 05:56 07/08/24 05:45 Labs: Laboratory Results - last 24 hr 07/07/24 07/07/24 07/08/24 10:23 17:40 05:45 Hold Purple Top SEE NOTE Sodium 142 Potassium 3.9 Chloride 109 H Carbon Dioxide 23 Anion Gap 14 BUN 35 H Creatinine 3.35 H Estim Creat Clear Calc 35.3 Estimated GFR 21 Random Glucose 85 Calcium 8.9 Vitamin B12 741 Folate 3.7 L U Random Total Protein 20 H Microbiology Microbiology Results: Microbiology 07/05/24 09:25 Blood - Venous Blood Culture - Preliminary No growth after 48 hours. 07/04/24 03:20 Blood - Venous Blood Culture - Final Coag negative Staphylococcus 07/04/24 03:20 Blood - Venous Blood Culture - Preliminary No growth after 48 hours. 07/04/24 Unknown Urine clean catch - Clean Catch Midstream Urine Culture - Final No growth. 07/05/24 08:03 Blood - Venous Blood Culture - Final Procedures Date of Service Date of Service: 07/08/24 Assessment & Plan Assessment and plan (1) Polysubstance abuse: Status: Acute (2) BELINDA (acute kidney injury): Status: Acute Plan BELINDA likely from tubular injury due to polysubstance use (renal vasoconstriction 2/2 cocaine use), as well as infection from UTI recommend continuing supportive care, refrain from illicit drug use continue to monitor renal function, avoid nephrotoxic substances, treatment of UTI given creatinine has plateaued, may be seen outpatient in ~2 weeks with nephrology for continued monitoring/care. Time Spent With Patient Time: Total time managing care of this patient today ____ minutes. Progress Note: Quality Stroke Does the patient have a stroke diagnosis?: No
[2024-07-08] MEDS: Doxycycline Monohydrate 100 MG CAPSULE PO (11:02)
--- NOTE | 2024-07-08 11:13 | PM.DS ---
DS: Providers Provider Date of Service: 07/08/24 Date of admission: 07/04/24 04:28 Date of discharge: 07/08/24 Primary care physician: Tae Plasencia PA-C Consults: 07/04/24 05:01 Addiction Medicine Routine Consulting Provider: Addiction Steph Reason for consultation: Polysubstance abuse Has provider been notified: No 07/04/24 09:13 Consult to Wound Care Routine Reason for consultation: Wounds r/t IVDU 07/05/24 08:00 Consult to Nephrology Routine Consulting Provider: [facility] Reason for consultation: BELINDA for eval and rec. DS: Diagnosis Discharge Diagnosis (1) Polysubstance abuse: Status: Acute (2) BELINDA (acute kidney injury): Status: Acute (3) Acute nausea with nonbilious vomiting: Status: Acute (4) Cellulitis: Status: Acute (5) Hypertension: Status: Acute DS: Summary Hospital Course Hospital Course: Admission note HPI Elie Jenkins is a very pleasant 39 years old man with past medical history significant for opiate use disorder with IVDU, chronic hep C, chronic xyaliine wounds (+) MRSA and recent hospitalization due to rhabdomyolysis presents to the emergency department complaining of generalized malaise associated with nausea, vomiting, profound sweating and abdominal pain. He also noted that his urine is dark. There is no fevers chills reported. He noted that his extremities wounds are more inflammed than usual. Did not report diarrhea. He admits use of a fentanyl and cocaine (not IV use). In the ED, he was found to have normal vital signs. Blood workup was remarkable for leukocytosis of 25.0, marked bandemia of 22%, toxic vacualation and presents of Dohle bodies. Creatinine is elevated at 1.99 and BUN 29 (1.33 and 15, respectively in March). Transaminases and alk-phos are elevated, but normal bilirubin and lipase. Total CK is normal, 96 and there is hypoalbuminemia. Urinalysis consistent with hematuria and urinary tract infection. Urine drug screen is positive for opiates, methadone, fentanyl, benzodiazepine and cocaine. ECG showed normal sinus rhythm with prolonged QT 502 ms. ED tx: NS 2 L bolus, acetaminophen 650 mg PO, Ativan 1 mg IV, vancomycin 2 g IV, Zosyn 3.375 g IV Hospital course # Acute kidney injury Likely secondary to Cocaine abuse with creatinine increasing up to 3.3 with no oligourea reported as he was treated with IV fluids and Avoid nephrotoxic agents. He was seen by Nephrology team who sent blood and Urine studies with a plan to follow up as outpatient. Follow BMP in 1 week. # Polysubstance abuse Tox screen positive for Cocaine, fentanyl and BDZ. Use Xylazine (snorting). Addiction medicine consult. Used ATC and PRN Clonidine , Atarax with PRN Ativan and Dilaudid for withdrawal control. He feels better and back to baseline. # infected chronic wounds with cellulitis Treated with IV Zosyn and Vancomycin then and Change to PO Doxycycline. To finish 1 more week of Doxycycline. # Elevated LFTs. Likely secondary to chronic hep C. resolving # Worsening anemia, No overt bleeding noted. To replace low Folic acid. repeat CBC in 1 week # Opiate use disorder. Continue methadone 270 mg PO daily. seen by addiction team. # Positive blood culture, contamination from skin. CoAg Neg # Bacteruria, Neg Cx. dc abx Discharge plan Start Amlodipine 5 mg and Monitor blood pressure at home Avoid drugs and keep yourself well hydrated Doxycycline for 1 more week Repeat BMP in [address] follow with dr Quijano as outpatient Time Attestation Discharge Coordination Time (in mins): 37 Quality: Safe Use of Opioids Does Pt have an Active Cancer Diagnosis on the Problem List?: No Quality: Stroke Does the patient have a stroke diagnosis?: No Physical Exam Vital Signs: Vital Signs: Last Vital Signs Temp 98.8 F 07/08/24 07:59 Pulse 51 07/08/24 07:59 Resp 16 07/08/24 07:59 BP 146/80 H 07/08/24 07:59 Pulse Ox 98 07/08/24 07:59 O2 Del Method Room Air 07/08/24 07:59 BMI result Body Mass Index 26.3 Const: Other: Constitutional : Awake, interactive, in mild distress Neck : Normal inspection, Supple Cardiovascular : RRR, no JVP, no lower extremity edema Respiratory : good bilateral air entry, no crackles, wheezes or rhonchi Gastrointestinal: soft, lax, Normal bowel sounds, Non tender Skin : Warm, Dry, multiple injection pelletier with erythema improving in bilateral lower extremities Neurological : Alert & oriented x3, No focal deficit DS: Data Data Completed and Pending Labs on day of discharge: Laboratory Results - last 24 hr 07/07/24 07/07/24 07/08/24 10:23 17:40 05:45 Hold Purple Top SEE NOTE Sodium 142 Potassium 3.9 Chloride 109 H Carbon Dioxide 23 Anion Gap 14 BUN 35 H Creatinine 3.35 H Estim Creat Clear Calc 35.3 Estimated GFR 21 Random Glucose 85 Calcium 8.9 Vitamin B12 741 Folate 3.7 L U Random Total Protein 20 H Preliminary micro results at discharge 07/05/24 09:25 Blood Culture - Preliminary Blood - Venous No growth after 48 hours. 07/04/24 03:20 Blood Culture - Preliminary Blood - Venous No growth after 48 hours. Imaging Chest x-ray: Radiologist's impression: ITS Impressions Renal Ultrasound 07/05/24 08:23 IMPRESSION: Normal renal ultrasound. No hydronephrosis. Electronically signed by: Yair Manley MD 07/05/2024 11:21 AM EDT RP Discharge Plan Discharge Anticipated Discharge Date/Time: 07/08/24 11:07 Patient Disposition: Home, Self-Care Discharge Diagnosis: ACute renal failure Cellulitis drug abuse Referrals: Tae Plasencia PA-C [Primary Care Provider] - 1 Week Discharge Medications: New amlodipine 5 mg Tablet 5 mg PO DAILY Qty: 90 0RF Protocol: Hold for SBP< HOLD for SBP < : 90 doxycycline monohydrate 100 mg Capsule 100 mg PO Q12H Qty: 14 0RF omeprazole 20 mg Capsule,Delayed Release(Dr/Ec) 20 mg PO DAILY Qty: 90 0RF folic acid 1 mg tablet 1 mg PO DAILY Qty: 90 0RF Continued methadone [Methadone Intensol] 10 mg/mL Concentrate 270 mg PO DAILY sertraline 100 mg tablet 150 mg PO DAILY clonidine HCl 0.2 mg tablet 0.2 mg PO TID dextroamphetamine-amphetamine 20 mg tablet 1 tab PO TID@0600,1200,1600 alprazolam 2 mg tablet 2 mg PO BID PRN (Reason: anxiety) acetaminophen 325 mg Tablet 650 mg PO QID PRN (Reason: Headache) Discharge Orders: Discharge Order (Routine); Ordered 07/08/24 Ordered By: Bobby Cuellar Diet: Advance to usual diet Activity on Discharge: As tolerated Stand Alone Forms: Patient Portal Discharge page Print Language: Yi Other Ambulatory Orders: Basic Metabolic Panel (Routine) Timeframe: 1 Week Facility: [facility] - Location: Laboratory Ordered By: Bobby Cuellar Complete Blood Count no Diff (Routine) Timeframe: 1 Week Facility: [facility] - Location: Laboratory Ordered By: Bobby Cuellar Care Plan Goals: Start Amlodipine 5 mg and Monitor blood pressure at home Avoid drugs and keep yourself well hydrated Doxycycline for 1 more week Health Concerns: Kidney injury substance abuse blood pressure cellulitis Plan of Treatment: Antibiotics Follow with Norberto Jacobson as outpatient and repeat blood work Assessment: Read below Patient Instructions: Acute Kidney Injury (GEN), Urinary Tract Infection in Men (GEN)
[2024-07-08 17:55] LABS: Calcium, Random Urine 0.3 mg/dL
[2024-07-10 10:44] LABS: Complement C3 111 mg/dL (82-185)
[2024-07-10 20:14] LABS: Myeloperoxidase Antibody <1.0 AI; Proteinase 3 PR3 Antibodies <1.0 AI
--- NOTE | 2024-07-10 23:50 | PC.NURSE ---
I cared for the pt on 07/06, pt had scheduled methadone, adderral, Ativan, and several prn meds including IV Dilaudid. Pt has been asking for for all scheduled pain and anxiety meds and as much prn meds as possible, as often as possible. All the IV dilaudid has been administered, I must have forgotten to scan one of the IV dilaudid, possible due to pt being demanding, asking to push the IV fast, asking for meds too often, and my worry about his vitals (BP and RR), but all IV meds has been administered, some were with pt's parents at the bedside.
== END 2024-07-08 11:49 | disposition home or self-care (01) | DRG 816 ==
LOC: HO.ED 03:11 → HO.EDOVER 04:44 → HO.S3 07:25
PROVIDERS: Internal Medicine Nephrology; Nurse Practitioner Family; Admitting Provider Internal Medicine; Emergency Provider Emergency Medicine; PCP Physician Assistant; Visit Provider Student in an Organized Health Care Education/Training Program
DX: T40.5X1A Poisoning by cocaine, accidental (unintentional), initial encounter (principal); N17.0 Acute kidney failure with tubular necrosis; L97.819 Non-pressure chronic ulcer of other part of right lower leg with unspecified severity; N30.01 Acute cystitis with hematuria; L03.116 Cellulitis of left lower limb; L03.115 Cellulitis of right lower limb; F11.20 Opioid dependence, uncomplicated; F19.10 Other psychoactive substance abuse, uncomplicated; F17.210 Nicotine dependence, cigarettes, uncomplicated; T42.7 Poisoning by, adverse effect of and underdosing of unspecified antiepileptic and sedative-hypnotic drugs; Z71.6 Tobacco abuse counseling; B18.2 Chronic viral hepatitis C; L98.499 Non-pressure chronic ulcer of skin of other sites with unspecified severity; L97.829 Non-pressure chronic ulcer of other part of left lower leg with unspecified severity; Z86.14 Personal history of Methicillin resistant Staphylococcus aureus infection; Z79.899 Other long term (current) drug therapy
CPT/HCPCS: 36415; 76775; 80048; 80053; 80076; 80202; 80307; 81001; 81003; 82310; 82550; 82570; 82607; 82746; 83540; 83605; 83690; 84156; 84300; 85007; 85025; 85027; 85999; 86021; 86160; 86704; 86706; 86709; 86803; 87040; 87086; 87147; 87205; 87340; 87389; 93005; 99285; J0360; J1171; J1650; J2060; J2543; J3370; J7120

== ENCOUNTER → 2024-07-04 04:28 | Outpatient (BNV) | payer OTHER, SELFPAY | PROVIDERS: Admitting Provider Internal Medicine; Emergency Provider Emergency Medicine; PCP Physician Assistant; Visit Provider Internal Medicine | DX: F19.10 Other psychoactive substance abuse, uncomplicated (principal); R11.2 Nausea with vomiting, unspecified; N17.9 Acute kidney failure, unspecified; L03.119 Cellulitis of unspecified part of limb | CPT/HCPCS: 99223; 99232; 99239; 99499 ==

== ENCOUNTER → 2024-07-04 04:28 | Outpatient (BNV) | payer OTHER, SELFPAY | PROVIDERS: Admitting Provider Internal Medicine; Emergency Provider Emergency Medicine; PCP Physician Assistant; Visit Provider Nurse Practitioner Family | DX: N17.0 Acute kidney failure with tubular necrosis (principal); F19.10 Other psychoactive substance abuse, uncomplicated | CPT/HCPCS: 99222; 99232 ==

== ENCOUNTER 2024-10-01 17:12 | Emergency (ER) | payer OTHER, SELFPAY ==
[2024-10-01 17:26] VITALS: BP 112/70; BP 133/85; PULSE 66; PULSE 84; RESP 20; TEMP 36.9; O2SAT 96; O2SAT 98; BMI 27.5
--- NOTE | 2024-10-01 17:30 | ED.GENADULT ---
HPI - General Adult General Chief complaint: Abdominal Pain Stated complaint: abd pain, N/V/D,cold swets Related Data Home Medications ?Medication ?Instructions ?Recorded ?Confirmed alprazolam 2 mg tablet 2 mg PO BID PRN anxiety 04/12/24 07/04/24 clonidine HCl 0.2 mg tablet 0.2 mg PO TID 04/12/24 07/04/24 dextroamphetamine-amphetamine 20 1 tab PO TID@0600,1200,1600 04/12/24 07/04/24 mg tablet methadone 10 mg/mL oral 270 mg PO DAILY 04/12/24 04/12/24 concentrate (Methadone Intensol) sertraline 100 mg tablet 150 mg PO DAILY 04/12/24 07/04/24 acetaminophen 325 mg tablet 650 mg PO QID PRN Headache 07/04/24 07/04/24 Previous Rx's ?Medication ?Instructions ?Recorded amlodipine 5 mg tablet 5 mg PO DAILY #90 tabs 07/08/24 doxycycline monohydrate 100 mg 100 mg PO Q12H #14 caps 07/08/24 capsule folic acid 1 mg tablet 1 mg PO DAILY #90 tabs 07/08/24 omeprazole 20 mg capsule,delayed 20 mg PO DAILY #90 caps 07/08/24 release Allergies Allergy/AdvReac Type Severity Reaction Status Date / Time No Known Allergies Allergy Verified 10/01/24 17:34 [facility] Past Medical History Medical History (Updated 11/14/24 @ 11:42 by Xavier Goss) Polysubstance abuse Wounds, multiple Social History Social History Household Members: Family Housing: House Do you presently have visiting nurse or other home services: No Patient Tobacco Use Status: Current everyday Tobacco user Tobacco use type: Smokeless Tobacco Cigarettes Per Day: 2 e-Cigarette/Vaping Use: Never Used Second Hand Smoke Exposure: No Substance Use Type: Crack/Cocaine, Heroin, Marijuana and Opiates Advance Directives: Yes Advance Directives on File: Yes Advance Directives Date on File: 04/16/24 Do you have a plan to hurt others: No Plan service: No Physical Exam ED Vital Signs: BMI result Body Mass Index 27.5 Course Course Course Narrative: RME, this is a rapid medical exam performed by Marshal Goss please refer to primary provider for complete H&P- 39 year old male presents for evaluation of abdominal pain and vomiting. Symptoms started earlier this morning. The patient severe lower abdominal pain that is generalized and does not lateralize. Plan for labs, urinalysis. Patient medicated with Zofran ODT Medications Administered Discontinued Medications Generic Name Dose Route Start Last Admin Trade Name Freq PRN Reason Stop Dose Admin Ondansetron HCl 4 mg 10/01/24 17:30 10/01/24 17:38 Ondansetron Odt 4 Mg Tab.Rapdis TRANSLINGU 10/01/24 17:31 4 mg ONCE ONE Administration Medical Decision Making Lab Data Labs: Lab Results 10/01/24 Range/Units 18:42 Influenza Type A (PCR) NEGATIVE (Negative) Influenza Type B (PCR) NEGATIVE (Negative) RSV RNA Qual (PCR) NEGATIVE (Negative) SARS-CoV-2 RNA (RT-PCR) NEGATIVE (Negative) Discharge Plan Discharge Clinical Impression: Nausea and vomiting Patient Disposition: Left W/O Completing Treatment Prescriptions: No Action methadone [Methadone Intensol] 10 mg/mL Concentrate 270 mg PO DAILY sertraline 100 mg tablet 150 mg PO DAILY clonidine HCl 0.2 mg tablet 0.2 mg PO TID dextroamphetamine-amphetamine 20 mg tablet 1 tab PO TID@0600,1200,1600 alprazolam 2 mg tablet 2 mg PO BID PRN (Reason: anxiety) acetaminophen 325 mg Tablet 650 mg PO QID PRN (Reason: Headache) amlodipine 5 mg Tablet 5 mg PO DAILY Qty: 90 0RF Protocol: Hold for SBP< HOLD for SBP < : 90 doxycycline monohydrate 100 mg Capsule 100 mg PO Q12H Qty: 14 0RF omeprazole 20 mg Capsule,Delayed Release(Dr/Ec) 20 mg PO DAILY Qty: 90 0RF folic acid 1 mg tablet 1 mg PO DAILY Qty: 90 0RF Discharge Date/Time: 10/01/24 20:35
[2024-10-01] MEDS: Ondansetron ODT 4 MG TAB.RAPDIS TRANSLINGU (17:38)
[2024-10-01 19:33] LABS: Influenza A PCR NEGATIVE (Negative); Influenza B PCR NEGATIVE (Negative); Resp Syncy Virus RNA Qual PCR NEGATIVE (Negative); SARS COV2 PCR INHOUSE NEGATIVE (Negative)
== END 2024-10-01 20:35 | disposition left against medical advice (07) ==
PROVIDERS: Physician Assistant; Emergency Provider Emergency Medicine
DX: R11.2 Nausea with vomiting, unspecified (principal); R10.9 Unspecified abdominal pain; R19.7 Diarrhea, unspecified; F17.210 Nicotine dependence, cigarettes, uncomplicated; Z03.818 Encounter for observation for suspected exposure to other biological agents ruled out
CPT/HCPCS: 0241U; 99281; 99283